=== PATIENT | female | born 1945 | race Hispanic/Latino ===

== ENCOUNTER 2017-03-25 16:39 | Inpatient (IN) | payer MEDICARE, MEDICAID ==
[2017-03-25 16:43] VITALS: BMI 34.7
[2017-03-25] MEDS ORDERED: HYDROmorphone 0.5 mg/0.5 ml ISec IVP STA ×2 (17:06→18:14)
--- NOTE | 2017-03-25 17:11 | ED PDOC ---
Arrival/HPI - General Chief Complaint: Lower Extremity Problem/Injury Time Seen by Provider: 03/25/17 17:03 Historian: Patient - History of Present Illness Narrative History of Present Illness (Text): 03/25/17 17:08 72yr old female presents today with worsening right 4th toe pain. pt was seen by speech and language specialist 4 days ago and had right 4th toe nail removed. pt was placed on ceftin. pt states pain has worsened. pt c/o increased redness, swelling and severe pain. no fever/chills. requesting dilaudid for pain control. pt states she is supposed to having surgery for right hip on apr 17. Time/Duration: Other (4 days) Symptom Onset: Gradual Symptom Course: Worsening Quality: Aching, Throbbing Severity Level: 5 Past Medical History - Provider Review Nursing Documentation Reviewed: Yes - Travel History Have you recently traveled outside [place] w/in the past 3 mons?: Yes - Past History Past History: Non-Contributing - Infectious Disease Hx of Infectious Diseases: None - Tetanus Immunization Tetanus Immunization: Up to Date - Reproductive Menopause: Yes - Cardiac Hx Cardiac Disorders: Yes Hx Hypertension: Yes - Pulmonary Hx Respiratory Disorders: No - Neurological HX Cerebrovascular Accident: Yes - HEENT Hx HEENT Disorder: Yes Hx Glaucoma: Yes - Renal Hx Renal Disorder: No - Endocrine/Metabolic Hx Endocrine Disorders: No - Hematological/Oncological Hx Blood Disorders: Yes Hx Anemia: Yes - Integumentary Hx Dermatological Disorder: No - Musculoskeletal/Rheumatological Hx Arthritis: Yes - Gastrointestinal Hx Gastrointestinal Disorders: Yes Hx Diverticulitis: Yes Hx Gall Bladder Disease: Yes Other/Comment: hiatal hernia - Genitourinary/Gynecological Hx Genitourinary Disorders: No - Psychiatric Hx Psychophysiologic Disorder: Yes Hx Anxiety: Yes Hx Depression: Yes Hx Substance Use: No - Past Surgical History Past Surgical History: Non-Contributing - Surgical History Hx Appendectomy: Yes Hx Cholecystectomy: Yes Hx Hysterectomy: Yes - Anesthesia Hx Anesthesia Reactions: No Hx Malignant Hyperthermia: No - Suicidal Assessment Feels Threatened In Home Enviroment: No Family/Social History - Physician Review Nursing Documentation Reviewed: Yes Family/Social History: Unknown Family HX Smoking Status: Never Smoked Hx Alcohol Use: No Hx Substance Use: No Hx Substance Use Treatment: No Allergies/Home Meds Allergies/Adverse Reactions: Allergies atorvastatin calcium [From Lipitor] Allergy (Verified 03/25/17 16:44) FATIGUE clopidogrel bisulfate [From Plavix] Allergy (Verified 03/25/17 16:44) SHORTNESS OF BREATH nalbuphine HCl [From Nubain] Allergy (Verified 03/25/17 16:44) VOMITING Home Medications: Home Meds Medication Instructions Recorded Confirmed Enalapril Maleate 10 mg PO BID 04/19/15 03/25/17 Omeprazole [Prilosec] 20 mg PO BID 04/19/15 03/25/17 Sertraline [Zoloft] 100 mg PO DAILY 02/27/16 03/25/17 Cefuroxime Axetil [Cefuroxime] 500 mg PO Q12 03/25/17 03/25/17 Mupirocin 2% Ointment [Bactroban 1 appl TP BID 03/25/17 03/25/17 Ointment] Timolol 0.5% Ophth [Timoptic 0.5% 1 drop OP DAILY 03/25/17 03/25/17 Ophth Soln] Review of Systems - Review of Systems Constitutional: absent: Fatigue, Fevers Respiratory: absent: SOB, Cough Cardiovascular: absent: Chest Pain, Palpitations Gastrointestinal: absent: Abdominal Pain, Nausea, Vomiting Musculoskeletal: Arthralgias Skin: Rash, Cellulitis Neurological: absent: Headache, Dizziness Physical Exam Vital Signs Reviewed: Yes Vital Signs Temp Pulse Resp BP Pulse Ox 03/25/17 16:53 97.6 F 78 18 212/79 H 95 Temperature: Afebrile Blood Pressure: Hypertensive Pulse: Regular Respiratory Rate: Normal Appearance: Positive for: Well-Appearing, Non-Toxic, Comfortable Pain Distress: None Mental Status: Positive for: Alert and Oriented X 3 - Systems Exam Head: Present: Atraumatic Neck: Present: Normal Range of Motion Respiratory/Chest: Present: Clear to Auscultation Cardiovascular: Present: Regular Rate and Rhythm Lower Extremity: Present: NORMAL PULSES, Tenderness (right foot; + erythema, edema, tenderness to right 4th toe; + cap refill, distal pulses intact; + minimal edema to dorsal foot with slight erythema extending to dorsal aspect of foot. no calf tenderness. ), Swelling, Erythema, Neurovascularly Intact, Capillary Refill < 2 s. No: CALF TENDERNESS, Normal ROM, Deformity Neurological: Present: GCS=15, Speech Normal Skin: Present: Warm, Dry Psychiatric: Present: Alert, Oriented x 3 Medical Decision Making ED Course and Treatment: 03/25/17 17:53 72yr old female with right 4th toe pain erythema and edema x 4 days. currently on ceftin x 4 days. cbc wnl cmp wnl xray right 4th toe; no fracture 03/25/17 18:32 pt seen and evaluated by dr. núñez. blood cultures pending vancomycin and zosyn ordered IV case discussed with dr. hernández; will admit to med/surg for cellulitis of toe, failure of outpatient abx. impression; cellulitis, toe admit to med/surg - Lab Interpretations Lab Results: 03/25/17 17:15 03/25/17 17:15 Lab Results 03/25/17 17:15: WBC 8.9, RBC 4.70, Hgb 14.2, Hct 42.4, MCV 90.2, MCH 30.2, MCHC 33.5, RDW 13.5, Plt Count 214, MPV 10.4, Gran % 60.7, Lymph % (Auto) 25.1, [place] % (Auto) 8.4 H, Eos % (Auto) 5.5 H, Baso % (Auto) 0.3, Gran # 5.41, Lymph # 2.2 , [place] # 0.8 H, Eos # 0.5, Baso # 0.03 03/25/17 17:15: Sodium 144, Potassium 4.2, Chloride 106, Carbon Dioxide 27, Anion Gap 15, BUN 19, Creatinine 0.7, Est GFR ( Amer) > 60, Est GFR (Non- Af Amer) > 60, Random Glucose 114 H, Calcium 9.6, Total Bilirubin 0.4, AST 70 H , ALT 57 H, Alkaline Phosphatase 142 H, Total Protein 7.0, Albumin 4.1, Globulin 2.9, Albumin/Globulin Ratio 1.4 - RAD Interpretation Radiology Orders: 03/25/17 17:03 FOOT RIGHT 4TH DIGIT (TOE) [RAD] Stat - Medication Orders Current Medication Orders: Vancomycin HCl (Vancomycin 1gm) 1 g in 250 mls @ 167 mls/hr IVPB STAT STA PRN Reason: Protocol Stop: 03/25/17 19:43 Piperacillin Sod/Tazobactam Sod (Zosyn 3.375 In Ns 100ml) 100 mls @ 200 mls/hr IVPB STAT STA PRN Reason: Protocol Stop: 03/25/17 18:43 Discontinued Medications Hydromorphone HCl (Dilaudid) 0.5 mg IVP STAT STA Stop: 03/25/17 17:07 Last Admin: 03/25/17 17:23 Dose: 0.5 mg MAR Pain Assessment Document 03/25/17 17:23 (Rec: 03/25/17 17:24 MD BENITES) Pain Reassessment Is this a pain reassessment? Yes Sleep Is patient sleeping during reassessment? No Presence of Pain Presence of Pain Yes IVP Administration Document 03/25/17 17:23 (Rec: 03/25/17 17:24 MD BENITES) Charges for Administration # of IVP Administrations 1 Hydromorphone HCl (Dilaudid) 0.5 mg IVP STAT STA Stop: 03/25/17 18:15 Disposition/Present on Arrival - Present on Arrival Any Indicators Present on Arrival: No History of DVT/PE: No History of Uncontrolled Diabetes: No Urinary Catheter: No History of Decub. Ulcer: No History Surgical Site Infection Following: None - Disposition Have Diagnosis and Disposition been Completed?: Yes Diagnosis: Cellulitis, toe Disposition: HOSPITALIZED Disposition Time: 18:34 Patient Plan: Admission Condition: FAIR Discharge Instructions (ExitCare): Cellulitis (ED) Forms: [employer] ([place])
[2017-03-25 17:37] LABS: ALB/GLOB RATIO 1.4 (1.1-1.8); ALKALINE PHOSPHATASE 142 U/L (38-126); ALT/SGPT 57 U/L (7-56); AST/SGOT 70 U/L (14-36); BILIRUBIN,TOTAL 0.4 mg/dL (0.2-1.3); BLOOD UREA NITROGEN 19 mg/dL (7-21); CALCIUM 9.6 mg/dL (8.4-10.5); CARBON DIOXIDE 27 mmol/L (21-33); CHLORIDE 106 mmol/L (98-107); GFR AFRICAN-AMERICAN > 60; GLUCOSE,RANDOM 114 mg/dL (70-110); POTASSIUM 4.2 mmol/L (3.6-5.0); SODIUM 144 mmol/L (132-148)
[2017-03-25 17:38] LABS: BASO # 0.03 K/mm3 (0.0-2.0); BASO % 0.3 % (0.0-3.0); EOS # 0.5 (0.0-0.7); EOS % 5.5 % (1.5-5.0); GRAN # 5.41 (1.4-6.5); GRAN % 60.7 % (50.0-68.0); HEMATOCRIT 42.4 % (36.0-48.0); LYMPH # 2.2 (1.2-3.4); LYMPH % 25.1 % (22.0-35.0); MEAN CELL VOLUME 90.2 fl (80.0-105.0); MEAN CORPUSCULAR HEMOGLOBIN 30.2 pg (25.0-35.0); MEAN CORPUSCULAR HGB CONC 33.5 g/dl (31.0-37.0); MEAN PLATELET VOLUME 10.4 fl (7.0-11.0); MONO # 0.8 (0.1-0.6); MONO % 8.4 % (1.0-6.0); RED CELL DISTRIBUTION WIDTH 13.5 % (11.5-14.5); WHITE BLOOD COUNT 8.9 10^3/ul (4.5-11.0)
[2017-03-25] MEDS ORDERED: Piperacillin/Tazobact 3.375 gm 100 ML IVPB STA (18:14)
[2017-03-25] MEDS ORDERED: Vancomycin 1gm in NS 250ml 1 G/250 ML BAG IVPB STA (18:14)
[2017-03-25] MEDS: Morphine 2 mg/ml ISec IVP PRN (22:02)
--- NOTE | 2017-03-26 00:15 | CP.PCM.PN ---
Subjective - Date & Time of Evaluation Date of Evaluation: 03/26/17 Time of Evaluation: 00:13 - Subjective Subjective: S:Requests a sleeping pill. Seen at bedside. States that she takes ambien sometimes for sleep. Has no other complaints now.l O:VSS. Last Vital Signs 3 Temp 98 F 03/26/17 00:00 Pulse 62 03/26/17 00:00 Resp 20 03/26/17 00:00 BP 155/80 H 03/26/17 00:00 Pulse Ox 94 L 03/26/17 00:00 Awake, alert, not in distress. LUNGS: Normal breathing pattern. A:Adjustment insomnia. P:Ambien 5 mg PO x 1. Objective - Vital Signs/Intake and Output Vital Signs (last 24 hours): Temp Pulse Resp BP Pulse Ox 98 F 62 20 155/80 H 94 L 03/26/17 00:00 03/26/17 00:00 03/26/17 00:00 03/26/17 00:00 03/26/17 00:00 Intake and Output: 03/25/17 03/26/17 18:59 06:59 Intake Total 240 Balance 240 - Medications Medications: Current Medications Ibuprofen (Motrin Tab) 800 mg PO BID [facility] Lisinopril (Zestril) 10 mg PO BID [facility] Last Admin: 03/25/17 22:00 Dose: 10 mg Morphine Sulfate (Morphine) 2 mg IVP Q4H PRN PRN Reason: Pain, severe (8-10) Last Admin: 03/25/17 22:02 Dose: 2 mg Pantoprazole Sodium (Protonix Ec Tab) 20 mg PO 0600,1600 [facility] Sertraline HCl (Zoloft) 100 mg PO DAILY [facility] Timolol Maleate (Timoptic 0.5% [facility]) 1 drop OU BID [facility] Last Admin: 03/25/17 22:00 Dose: 1 drop
[2017-03-26] MEDS: Pantoprazole 20 mg EC Tab PO SCH ×2 (05:09→16:32)
[2017-03-26] MEDS: Morphine 2 mg/ml ISec IVP PRN ×2 (05:09→11:11)
[2017-03-26] MEDS: Vancomycin 1gm in NS 250ml 1 GM/250 ML BAG IVPB SCH ×2 (06:55→17:59)
--- NOTE | 2017-03-26 08:55 | CP.PCM.HP ---
<Ava Lyn - Last Filed: 03/26/17 11:10> History of Present Illness - History of Present Illness History of Present Illness: PGY-2 H&P for Dr. Walker 72 yo female with PMH of HTN, CVA, glaucoma, anemia, arthritis presents to hospital with worsening right 4th toe pain. Patient states that she noticed the pain started 4 days ago. She noticed that he toes and foot were becoming increasingly red so she decided to go to the improvement manager. There she had the right 4th toe nail removed and was started on outpatient antibiotic, ceftin. Patient states that over the next few days she was walking around alot and the continues to pain has worsen. On the day on admission patient noticed increased redness and darkening of her toes, as well as swelling and severe pain. She denies fever/chills, chest pain, sob, abd pain, n/v. Patient also reporst severe back pain with numbness down her right leg secondary to a hip surgery in august. Patients that she is to have another surgery for her right hip on apr 17. Patient states this morning her foot is better, the redness has improved. PMH: HTN, CVA, glaucoma, anemia, arthritis PSH: right hip surgery, appendectomy, cholecystectomy, hysterectomy Social hx: quit smoking 25 yo, before 3ppd, denies Etoch use, illicit drug use allergy: lipitor, plavix, nalbuphine meds: timolol, motrin, enalapril, bactroban ointment, cefuroxime, prilosce, percocet 5/325, zoloft Present on Admission - Present on Admission Any Indicators Present on Admission: No Review of Systems - Constitutional Constitutional: absent: Chills, Fatigue, Headache, Lethargy - EENT Eyes: absent: Blurred Vision, Change in Vision Nose/Mouth/Throat: absent: Nasal Congestion, Nasal Discharge, Sore Throat - Cardiovascular Cardiovascular: absent: Chest Pain, Diaphoresis, Irregular Heart Rhythm, Palpitations - Respiratory Respiratory: absent: Cough, Dyspnea, Hemoptysis - Gastrointestinal Gastrointestinal: absent: Abdominal Pain, Constipation, Diarrhea, Nausea, Vomiting - Genitourinary Genitourinary: absent: Difficulty Urinating, Dysuria, Hematuria - Musculoskeletal Musculoskeletal: Arthralgias, Back Pain, Numbness, Tingling - Integumentary Integumentary: absent: Pruritus, Rash, Skin Ulcer, Sores - Hematologic/Lymphatic Hematologic: absent: Easy Bleeding, Easy Bruising Past Patient History - Infectious Disease Hx of Infectious Diseases: None - Tetanus Immunizations Tetanus Immunization: Up to Date - Past Social History Smoking Status: Never Smoked - CARDIAC Hx Cardiac Disorders: Yes Hx Hypertension: Yes - PULMONARY Hx Respiratory Disorders: No - NEUROLOGICAL HX Cerebrovascular Accident: Yes - HEENT Hx HEENT Problems: Yes Hx Glaucoma: Yes - RENAL Hx Chronic Kidney Disease: No - ENDOCRINE/METABOLIC Hx Endocrine Disorders: No - HEMATOLOGICAL/ONCOLOGICAL Hx Blood Disorders: Yes Hx Anemia: Yes - INTEGUMENTARY Hx Dermatological Problems: No - MUSCULOSKELETAL/RHEUMATOLOGICAL Hx Arthritis: Yes - GASTROINTESTINAL Hx Gastrointestinal Disorders: Yes Hx Diverticulitis: Yes Hx Gall Bladder Disease: Yes Other/Comment: hiatal hernia - GENITOURINARY/GYNECOLOGICAL Hx Genitourinary Disorders: No - PSYCHIATRIC Hx Psychophysiologic Disorder: Yes Hx Anxiety: Yes Hx Depression: Yes Hx Substance Use: No - SURGICAL HISTORY Hx Appendectomy: Yes Hx Cholecystectomy: Yes Hx Hysterectomy: Yes - ANESTHESIA Hx Anesthesia Reactions: No Hx Malignant Hyperthermia: No Meds Allergies/Adverse Reactions: Allergies Allergy/AdvReac Type Severity Reaction Status Date / Time atorvastatin calcium Allergy FATIGUE Verified 03/25/17 16:44 [From Lipitor] clopidogrel bisulfate Allergy SHORTNESS Verified 03/25/17 16:44 [From Plavix] OF BREATH nalbuphine HCl [From Nubain] Allergy VOMITING Verified 03/25/17 16:44 Physical Exam - Constitutional Appears: Well, No Acute Distress - Head Exam Head Exam: ATRAUMATIC, NORMAL INSPECTION, NORMOCEPHALIC - Eye Exam Eye Exam: EOMI, Normal appearance - ENT Exam ENT Exam: Mucous Membranes Moist - Respiratory Exam Respiratory Exam: Clear to Auscultation Bilateral, NORMAL BREATHING PATTERN. absent: Decreased Breath Sounds, Rales, Rhonchi, Wheezes, Respiratory Distress, Stridor - Cardiovascular Exam Cardiovascular Exam: REGULAR RHYTHM, +S1, +S2. absent: Tachycardia, Diastolic murmur, Systolic Murmur - GI/Abdominal Exam GI & Abdominal Exam: Normal Bowel Sounds, Soft. absent: Distended, Firm, Guarding, Tenderness - Extremities Exam Additional comments: right 4th toes, erythema, does not extend past toe, tenderness to palpation - Neurological Exam Neurological exam: Alert, Oriented x3 - Skin Skin Exam: Dry, Intact, Normal Color, Warm Results - Vital Signs Recent Vital Signs: Last Vital Signs Temp 97.6 F 03/26/17 07:30 Pulse 67 03/26/17 07:30 Resp 18 03/26/17 07:30 BP 166/81 H 03/26/17 07:30 Pulse Ox 93 L 03/26/17 07:30 - Labs Result Diagrams: 03/25/17 17:15 03/25/17 17:15 Assessment & Plan - Assessment and Plan (Free Text) Assessment: 72 yo female with PMH of HTN, CVA, glaucoma, anemia, arthritis presents to hospital with worsening right 4th toe pain most likely 2/2 cellulitis. Plan: 1. cellulitis of right 4th toe - received zosyn and vanco in ED - Xray of foot does not show any fractures - cont ceftriaxone - cont pain management 2. HTN - cont lisinopril - cont to monitor 3. h/o glaucoma - cont timolol <Adolfo Walker S - Last Filed: 03/26/17 17:06> Results - Vital Signs Recent Vital Signs: Last Vital Signs Temp 98.6 F 03/26/17 16:29 Pulse 65 03/26/17 16:29 Resp 20 03/26/17 16:29 BP 188/82 H 03/26/17 16:29 Pulse Ox 93 L 03/26/17 16:29 - Labs Result Diagrams: 03/25/17 17:15 03/25/17 17:15 Labs: Laboratory Results - last 24 hr 03/26/17 03/26/17 08:20 08:20 ESR 14 C-React Prot High Sens 2.85 Assessment & Plan - Assessment and Plan (Free Text) Plan: Pt seen and examined. Agree with above not and plan of resident. Labs and meds reviewed. Spoke to Dr Rios. On IV Abx. Old records reviewed.
--- NOTE | 2017-03-26 09:16 | RAD ---
PROCEDURE: Radiographs of the right foot (toe). HISTORY: right 4th toe pain/swelling/redness COMPARISON: None TECHNIQUE: AP, oblique and lateral radiographs of the right 4th toe were obtained. FINDINGS: There is no acute displaced fracture or bone destruction. Bone alignment is normal. There is diffuse bone demineralization. The joint spaces are preserved. There is localized soft tissue swelling in the tip of the 4th toe. IMPRESSION: No acute fracture or bone destruction. Soft tissue swelling in the 4th toe which could represent cellulitis in the appropriate clinical setting.
[2017-03-26] MEDS ORDERED: cefTRIAXone 1 gm 1 GM/100 ML BAG IVPB SCH (10:00)
--- NOTE | 2017-03-26 15:42 | CP.PCM.CON ---
History of Present Illness - History of Present Illness History of Present Illness: 72 year old female with PMH of HTN, CVA, history of glaucoma, chronic anemia, arthritis, S/P hysterectomy, S/P appendectomy, S/P cholecystectomy, S/P right hip surgery came in to [facility] because of worsening pain and swelling of the right foot 4th toe. She had an ingrown toenail there which was removed last week. She was given antibiotic ointment and PO Cefuroxime to take. Over the next few days, the toe progressively got more swollen and painful. She denies animal contacts, no fever or chills, no soaking of feet in water. She also denies headache or dizziness, no chest pain, no SOB, no abdominal pain, no diarrhea, no dysuria. Infectious Diseases consult is requested to further evaluate and manage. Past Patient History - Infectious Disease Hx of Infectious Diseases: None - Tetanus Immunizations Tetanus Immunization: Up to Date - Past Social History Smoking Status: Never Smoked - CARDIAC Hx Cardiac Disorders: Yes Hx Hypertension: Yes - PULMONARY Hx Respiratory Disorders: No - NEUROLOGICAL HX Cerebrovascular Accident: Yes - HEENT Hx HEENT Problems: Yes Hx Glaucoma: Yes - RENAL Hx Chronic Kidney Disease: No - ENDOCRINE/METABOLIC Hx Endocrine Disorders: No - HEMATOLOGICAL/ONCOLOGICAL Hx Blood Disorders: Yes Hx Anemia: Yes - INTEGUMENTARY Hx Dermatological Problems: No - MUSCULOSKELETAL/RHEUMATOLOGICAL Hx Arthritis: Yes - GASTROINTESTINAL Hx Gastrointestinal Disorders: Yes Hx Diverticulitis: Yes Hx Gall Bladder Disease: Yes Other/Comment: hiatal hernia - GENITOURINARY/GYNECOLOGICAL Hx Genitourinary Disorders: No - PSYCHIATRIC Hx Psychophysiologic Disorder: Yes Hx Anxiety: Yes Hx Depression: Yes Hx Substance Use: No - SURGICAL HISTORY Hx Appendectomy: Yes Hx Cholecystectomy: Yes Hx Hysterectomy: Yes - ANESTHESIA Hx Anesthesia Reactions: No Hx Malignant Hyperthermia: No Meds Allergies/Adverse Reactions: Allergies Allergy/AdvReac Type Severity Reaction Status Date / Time atorvastatin calcium Allergy FATIGUE Verified 03/25/17 16:44 [From Lipitor] clopidogrel bisulfate Allergy SHORTNESS Verified 03/25/17 16:44 [From Plavix] OF BREATH nalbuphine HCl [From Nubain] Allergy VOMITING Verified 03/25/17 16:44 - Medications Medications: Current Medications Ibuprofen (Motrin Tab) 800 mg PO BID [facility] Lisinopril (Zestril) 10 mg PO BID [facility] Last Admin: 03/25/17 22:00 Dose: 10 mg Morphine Sulfate (Morphine) 2 mg IVP Q4H PRN PRN Reason: Pain, severe (8-10) Last Admin: 03/26/17 05:09 Dose: 2 mg Pantoprazole Sodium (Protonix Ec Tab) 20 mg PO 0600,1600 [facility] Last Admin: 03/26/17 05:09 Dose: 20 mg Sertraline HCl (Zoloft) 100 mg PO DAILY [facility] Timolol Maleate (Timoptic 0.5% [facility]) 1 drop OU BID [facility] Last Admin: 03/25/17 22:00 Dose: 1 drop Results - Vital Signs Recent Vital Signs: Last Vital Signs Temp 98 F 03/26/17 00:00 Pulse 62 03/26/17 00:00 Resp 20 03/26/17 00:00 BP 155/80 H 03/26/17 00:00 Pulse Ox 94 L 03/26/17 00:00 - Labs Result Diagrams: 03/25/17 17:15 03/25/17 17:15 Assessment & Plan - Assessment and Plan (Free Text) Plan: Assessment right 4th toe skin and skin structure infection related to ingrown toenail HTN CVA history of glaucoma chronic anemia arthritis S/P hysterectomy S/P appendectomy S/P cholecystectomy S/P right hip surgery Plan Started Vancomycin and Rocephin pending wound cx, blood cx; reviewed xray of the foot which shows cellulitis, no bone involvement follow up Podiatry evaluation and recommendations will monitor clinically
[2017-03-26] MEDS: HYDROmorphone 1 mg/ml ISec IVP PRN ×2 (15:56→22:35)
[2017-03-26 16:32] VITALS: RESP 20
--- NOTE | 2017-03-26 18:17 | CON ---
DATE: HISTORY OF PRESENT ILLNESS: This is a 72-year-old female seen at bedside for consultation, evaluation, and management of cellulitis of her right fourth toe. The patient states that she had that toe and she went to the sterilizer operator to have it removed and subsequently developed an infection. She has had outpatient antibiotics and was admitted for cellulitis. PAST MEDICAL HISTORY: The patient's medical history significant for glaucoma, anemia, essential hypertension, CVA, and osteoarthritis. PAST SURGICAL HISTORY: Includes cholecystectomy, hysterectomy, right hip surgery, and appendectomy. SOCIAL HISTORY: The patient was a former smoker, has not smoked in many years. Denies alcohol abuse. Denies illicit drug use. ALLERGIES: THE PATIENT IS ALLERGIC TO PLAVIX, LIPITOR, AND NALBUPHINE. MEDICATIONS: All medications are noted in the MAR. PHYSICAL EXAMINATION VITAL SIGNS: Reveal temperature of 97.6, pulse rate of 67, blood pressure of 166/81, respiratory rate of 18. LABORATORY FINDINGS: Reveal white count of 8.9, hemoglobin of 14.2, hematocrit of 42.4, platelet count of 214. ESR is within normal limits at 14. Foot x-rays reveal no radiographic evidence to suggest cortical destruction or osteomyelitis. There is noted to be soft tissue swelling in the fourth toe consistent with cellulitis. OBJECTIVE: EXTREMITIES: Palpable pedal pulses noted bilaterally. Absent pedal hair growth noted bilaterally, +1 nonpitting lower extremity edema noted bilaterally. Right fourth toe presents with edema and erythema. There is an absence of the great toe, which remains granular at the nailbed. There is no purulence to suggest underlying abscess formation. There is no drainage. ASSESSMENT: Resolving cellulitis of the right fourth toe. PLAN The patient 's wound will be cleansed with normal sterile saline. We will apply Bactroban and a dry sterile dressing daily. The patient will be seen and followed until discharge. Vicente Rios DPM
[2017-03-27] MEDS: Vancomycin 1gm in NS 250ml 1 GM/250 ML BAG IVPB SCH (05:46)
[2017-03-27] MEDS: Pantoprazole 20 mg EC Tab PO SCH (05:46)
--- NOTE | 2017-03-27 07:00 | CP.PCM.PN ---
Subjective - Date & Time of Evaluation Date of Evaluation: 03/27/17 Time of Evaluation: 00:10 - Subjective Subjective: called by nurse pt ,s bp is 210/90 , pt is c/o hedache. Objective - Vital Signs/Intake and Output Vital Signs (last 24 hours): Temp Pulse Resp BP Pulse Ox 98.6 F 70 20 140/74 93 L 03/26/17 16:29 03/27/17 00:48 03/26/17 16:29 03/27/17 01:50 03/26/17 16:29 Intake and Output: 03/26/17 03/27/17 18:59 06:59 Intake Total 480 780 Balance 480 780 - Medications Medications: Current Medications Hydromorphone HCl (Dilaudid) 1 mg IVP Q4H PRN PRN Reason: Pain, severe (8-10) Last Admin: 03/26/17 22:35 Dose: 1 mg Vancomycin HCl (Vancomycin 1gm) 1 gm in 250 mls @ 167 mls/hr IVPB Q12H [facility] PRN Reason: Protocol Last Admin: 03/27/17 05:46 Dose: 167 mls/hr Ceftriaxone Sodium (Rocephin 1 Gram Ivpb) 1 gm in 100 mls @ 100 mls/hr IVPB DAILY [facility] PRN Reason: Protocol Last Admin: 03/26/17 10:25 Dose: 100 mls/hr Ibuprofen (Motrin Tab) 800 mg PO BID [facility] Last Admin: 03/26/17 17:56 Dose: 800 mg Lisinopril (Zestril) 10 mg PO BID [facility] Last Admin: 03/26/17 17:56 Dose: 10 mg Pantoprazole Sodium (Protonix Ec Tab) 20 mg PO 0600,1600 [facility] Last Admin: 03/27/17 05:46 Dose: 20 mg Sertraline HCl (Zoloft) 100 mg PO DAILY [facility] Last Admin: 03/26/17 10:21 Dose: 100 mg Timolol Maleate (Timoptic 0.5% [facility]) 1 drop OU BID [facility] Last Admin: 03/26/17 17:56 Dose: 1 drop Zolpidem Tartrate (Ambien) 5 mg PO HS PRN; Protocol PRN Reason: Insomnia - Constitutional Appears: No Acute Distress - Head Exam Head Exam: NORMOCEPHALIC - Eye Exam Eye Exam: Normal appearance - ENT Exam ENT Exam: Mucous Membranes Moist - Neck Exam Neck Exam: Normal Inspection - Respiratory Exam Respiratory Exam: NORMAL BREATHING PATTERN - Cardiovascular Exam Cardiovascular Exam: RRR, +S1, +S2 - Rectal Exam Rectal Exam: Deferred - Extremities Exam Extremities Exam: Normal Inspection - Neurological Exam Neurological Exam: Awake Assessment and Plan - Assessment and Plan (Free Text) Assessment: hypertensinve urgency . hx of htn. hx of back pain. Plan: pt was given 0.1mg of clonidine bp improved to 140/78.
[2017-03-27 07:53] VITALS: PULSE 62; TEMP 97.7; O2SAT 94
[2017-03-27] MEDS: HYDROmorphone 1 mg/ml ISec IVP PRN (07:59)
--- NOTE | 2017-03-27 08:09 | CP.PCM.PN ---
<Ava Lyn - Last Filed: 03/27/17 12:44> Subjective - Date & Time of Evaluation Date of Evaluation: 03/27/17 Time of Evaluation: 08:07 - Subjective Subjective: Pgy-[address] Walker Patient seen and examined at bedside. No acute distress. Patient states that her toes continues to be tender but has improved. She denies chest pain, fever, chills, n/v/d/c. She is tolerating diet. Objective - Vital Signs/Intake and Output Vital Signs (last 24 hours): Temp Pulse Resp BP Pulse Ox 97.7 F 62 20 119/49 L 94 L 03/27/17 07:30 03/27/17 07:30 03/27/17 07:30 03/27/17 07:30 03/27/17 07:30 Intake and Output: 03/27/17 03/27/17 06:59 18:59 Intake Total 780 Balance 780 - Medications Medications: Current Medications Hydromorphone HCl (Dilaudid) 1 mg IVP Q4H PRN PRN Reason: Pain, severe (8-10) Last Admin: 03/27/17 07:59 Dose: 1 mg Vancomycin HCl (Vancomycin 1gm) 1 gm in 250 mls @ 167 mls/hr IVPB Q12H [facility] PRN Reason: Protocol Last Admin: 03/27/17 05:46 Dose: 167 mls/hr Ceftriaxone Sodium (Rocephin 1 Gram Ivpb) 1 gm in 100 mls @ 100 mls/hr IVPB DAILY [facility] PRN Reason: Protocol Last Admin: 03/26/17 10:25 Dose: 100 mls/hr Ibuprofen (Motrin Tab) 800 mg PO BID [facility] Last Admin: 03/26/17 17:56 Dose: 800 mg Lisinopril (Zestril) 10 mg PO BID [facility] Last Admin: 03/26/17 17:56 Dose: 10 mg Pantoprazole Sodium (Protonix Ec Tab) 20 mg PO 0600,1600 [facility] Last Admin: 03/27/17 05:46 Dose: 20 mg Sertraline HCl (Zoloft) 100 mg PO DAILY [facility] Last Admin: 03/26/17 10:21 Dose: 100 mg Timolol Maleate (Timoptic 0.5% Oph Soln) 1 drop OU BID [facility] Last Admin: 03/26/17 17:56 Dose: 1 drop Zolpidem Tartrate (Ambien) 5 mg PO HS PRN; Protocol PRN Reason: Insomnia - Constitutional Appears: Well, No Acute Distress - Head Exam Head Exam: ATRAUMATIC, NORMAL INSPECTION, NORMOCEPHALIC - Eye Exam Eye Exam: EOMI, Normal appearance - ENT Exam ENT Exam: Mucous Membranes Moist - Respiratory Exam Respiratory Exam: Clear to Ausculation Bilateral, NORMAL BREATHING PATTERN. absent: Decreased Breath Sounds, Rales, Rhonchi, Wheezes, Respiratory Distress, Stridor - Cardiovascular Exam Cardiovascular Exam: REGULAR RHYTHM, +S1, +S2. absent: Tachycardia, Murmur - GI/Abdominal Exam GI & Abdominal Exam: Soft, Normal Bowel Sounds. absent: Distended, Firm, Tenderness - Neurological Exam Neurological Exam: Alert, Awake, Oriented x3 - Skin Skin Exam: Dry, Intact, Normal Color, Warm Assessment and Plan - Assessment and Plan (Free Text) Assessment: 72 yo female with PMH of HTN, CVA, glaucoma, anemia, arthritis presents to hospital with worsening right 4th toe pain most likely 2/2 cellulitis. Plan: 1. cellulitis of right 4th toe - Xray of foot does not show any fractures - blood cultures negative after 24 hours - cont ceftriaxone and vanco - cont pain management with dilaudid, motrin - LE ultrasound pending - podiatry following - ID following 2. HTN - patient had episode of HTN and was given clonidine 0.1 once - currently BP is better controlled, will cont to monitor and increase lisinopril if needed - cont lisinopril 10mg BID 3. h/o glaucoma - cont timolol 4. anxiety and depression - cont home meds Ambien and zoloft <Adolfo Walker S - Last Filed: 03/28/17 07:44> Objective - Vital Signs/Intake and Output Vital Signs (last 24 hours): Temp Pulse Resp BP Pulse Ox 97.7 F 62 20 120/50 L 94 L 03/27/17 07:30 03/27/17 09:35 03/27/17 07:30 03/27/17 09:35 03/27/17 07:30 Assessment and Plan - Assessment and Plan (Free Text) Plan: Pt seen and examined. Note of medical radiation therapist reviewed and I agree with it. Labs and meds reviewed. Will speak to ID about PO Abx. Plan on D/C home. Cellulitis is improving.
[2017-03-27 09:37] VITALS: BP 120/50
--- NOTE | 2017-03-27 10:45 | CP.PCM.PN ---
<Freedom Machado - Last Filed: 03/27/17 10:41> Subjective - Date & Time of Evaluation Date of Evaluation: 03/27/17 Time of Evaluation: 10:41 - Subjective Subjective: 72 y.o female seen at bedside for right 4th digit cellulitis. She is seen resting comfortably at bedside, AAOx3, and in NAD. Patient states that she is doing much better. The redness has gone down. She still reports pain to the right 4th digit but has improved. She rates the pain 6/10 and describes the pain as a throbbing pain that stays localized to the right 4th digit. She denies n/v/sob/cp/chills or f. Objective - Vital Signs/Intake and Output Vital Signs (last 24 hours): Temp Pulse Resp BP Pulse Ox 97.7 F 62 20 120/50 L 94 L 03/27/17 07:30 03/27/17 09:35 03/27/17 07:30 03/27/17 09:35 03/27/17 07:30 Intake and Output: 03/27/17 03/27/17 06:59 18:59 Intake Total 780 Balance 780 - Medications Medications: Current Medications Hydromorphone HCl (Dilaudid) 1 mg IVP Q4H PRN PRN Reason: Pain, severe (8-10) Last Admin: 03/27/17 07:59 Dose: 1 mg Vancomycin HCl (Vancomycin 1gm) 1 gm in 250 mls @ 167 mls/hr IVPB Q12H [facility] PRN Reason: Protocol Last Admin: 03/27/17 05:46 Dose: 167 mls/hr Ceftriaxone Sodium (Rocephin 1 Gram Ivpb) 1 gm in 100 mls @ 100 mls/hr IVPB DAILY [facility] PRN Reason: Protocol Last Admin: 03/26/17 10:25 Dose: 100 mls/hr Ibuprofen (Motrin Tab) 800 mg PO BID [facility] Last Admin: 03/27/17 09:35 Dose: 800 mg Lisinopril (Zestril) 10 mg PO BID [facility] Last Admin: 03/27/17 09:35 Dose: 10 mg Pantoprazole Sodium (Protonix Ec Tab) 20 mg PO 0600,1600 [facility] Last Admin: 03/27/17 05:46 Dose: 20 mg Sertraline HCl (Zoloft) 100 mg PO DAILY [facility] Last Admin: 03/27/17 09:35 Dose: 100 mg Timolol Maleate (Timoptic 0.5% Ophth Soln) 1 drop OU BID [facility] Last Admin: 03/27/17 09:39 Dose: 1 drop Zolpidem Tartrate (Ambien) 5 mg PO HS PRN; Protocol PRN Reason: Insomnia - Constitutional Appears: Well, Non-toxic, No Acute Distress - Extremities Exam Additional comments: Vasc: DP and PT pulses palpable bilaterally. No digital hairs noted bilaterally , +1 nonpitting edema bilaterally; localized edema noted to the right 4th toe Ortho: moderate pain with palpation to the right 4th toe Neuro: gross sensation is intact bilaterally Derm: Absent of nail plate to the right 4th digit. 100% granular nail bed with no fibrotic tissue noted. No purulence, no drainage, no odor, no abscess; erythema noted to the right 4th digit; erythema improving. - Neurological Exam Neurological Exam: Alert, Awake, Oriented x3 - Psychiatric Exam Psychiatric exam: Normal Affect, Normal Mood Assessment and Plan - Assessment and Plan (Free Text) Assessment: 72 y.o female with resolving right 4th digit cellulitis secondary to ingrown nail. Plan: Patient was examined and evaluated Charts, labs, vitals reviewed (afebrile, absent leukocytosis WBC=8.9) Discussed plan in detail with attending Dr. Rios Patient's 4th digit cleansed with saline, and dressed with bactroban, dsd, and kerlix X-ray shows no OM Will continue local wound care while in house Patient may WBAT in right surgical shoe Patient is stable per podiatry Will continue to follow while inhouse <Vicente Rios - Last Filed: 03/27/17 13:45> Objective - Vital Signs/Intake and Output Vital Signs (last 24 hours): Temp Pulse Resp BP Pulse Ox 97.7 F 62 20 120/50 L 94 L 03/27/17 07:30 03/27/17 09:35 03/27/17 07:30 03/27/17 09:35 03/27/17 07:30 Intake and Output: 03/27/17 03/27/17 06:59 18:59 Intake Total 780 Balance 780 - Medications Medications: Current Medications Amoxicillin/Clavulanate Potassium (Augmentin 875 Mg-125 Mg Tab) 1 tab PO Q12 [facility] PRN Reason: Protocol Stop: 04/03/17 12:51 Doxycycline Hyclate (Doryx) 100 mg PO Q12 [facility] PRN Reason: Protocol Stop: 04/03/17 12:52 Hydromorphone HCl (Dilaudid) 1 mg IVP Q4H PRN PRN Reason: Pain, severe (8-10) Last Admin: 03/27/17 07:59 Dose: 1 mg Ibuprofen (Motrin Tab) 800 mg PO BID PRN PRN Reason: Pain, moderate (4-7) Lisinopril (Zestril) 10 mg PO BID [facility] Last Admin: 03/27/17 09:35 Dose: 10 mg Pantoprazole Sodium (Protonix Ec Tab) 20 mg PO 0600,1600 [facility] Last Admin: 03/27/17 05:46 Dose: 20 mg Sertraline HCl (Zoloft) 100 mg PO DAILY [facility] Last Admin: 03/27/17 09:35 Dose: 100 mg Timolol Maleate (Timoptic 0.5% [facility] Sol) 1 drop OU BID [facility] Last Admin: 03/27/17 09:39 Dose: 1 drop Zolpidem Tartrate (Ambien) 5 mg PO HS PRN; Protocol PRN Reason: Insomnia Attending/Attestation - Attestation I have personally seen and examined this patient.: Yes I have fully participated in the care of the patient.: Yes I have reviewed all pertinent clinical information, including history, physical exam and plan: Yes
[2017-03-27] MEDS ORDERED: Amoxicillin-Clav 875-125 mg Tab PO SCH (12:50)
[2017-03-27] MEDS ORDERED: Influenza Vaccine 60 mcg/0.5 mL SYR (4YR UP) IM ONE (14:01)
--- NOTE | 2017-03-27 15:28 | PN ---
DATE: 03/27/2017 SUBJECTIVE: The patient is in bed, in no acute distress, and nontoxic. PHYSICAL EXAMINATION VITAL SIGNS: Temperature is 98, blood pressure is 110/70, and respiratory rate of 16. HEENT: Unremarkable. NECK: Supple. LUNGS: Decreased breath sounds. HEART: Normal S1 and S2. ABDOMEN: Soft and nontender. LABORATORY EXAMINATION: Reveals a white count of 8.9. BUN of 19 and creatinine of 0.7. LFTs are noted. Microbiology reveals blood cultures are no growth. ASSESSMENT AND PLAN: This is a 72-year-old female with history of hypertension, cerebrovascular accident, glaucoma, anemia, arthritis, status post hysterectomy, appendectomy, cholecystectomy, hip surgery, who was admitted with right foot fourth toe pain and found to have right fourth toe skin and skin soft tissue infection related to an ingrown toenail, on vancomycin and Rocephin. X-ray of the foot is consistent with cellulitis, no bone destruction. Sed rate of 14. C-reactive protein is 2.85. Microbiology reveals the blood cultures are negative and review of podiatry note is appreciated. Podiatry is written they do not feel there is any osteomyelitis or cerebrovascular disease and has ingrown nail with cellulitis and he switch to p.o. antibiotics with p.o. doxycycline and p.o. Augmentin x5 to 7 days and close follow up with PMD and Podiatry. We will discontinue the vancomycin and ceftriaxone. Sidney Downing MD
--- NOTE | 2017-03-27 19:44 | US ---
PROCEDURE: Lower extremity HILDA exam HISTORY: Peripheral vascular disease with pain and toe ulceration. Previous smoker. PHYSICIAN(S): Jarad Davenport MD. FINDINGS: The resting HILDA's are normal: right, 1.11and left, 1.23. The brachial systolic pressures are symmetric. The high thigh pressures and waveforms are relatively normal. The calf PVR waveforms augment normally. No significant gradients are noted across the thighs. The ankle and metatarsal waveforms are relatively normal and symmetric. No significant pressure gradients are noted across the lower legs. IMPRESSION: 1. Relatively normal HILDA and PVR examination at rest.
== END 2017-03-27 14:46 | disposition home or self-care (01) | DRG 603 ==
LOC: ED 16:39 → ERH 19:53 → 5RSO 20:54
PROVIDERS: ADMIT Internal Medicine Nephrology; ATTEND Internal Medicine Nephrology
DX: L03.031 Cellulitis of right toe (principal); L60.0 Ingrowing nail; I16.0 Hypertensive urgency; D64.9 Anemia, unspecified; F32.9 Major depressive disorder, single episode, unspecified; F41.9 Anxiety disorder, unspecified; H40.9 Unspecified glaucoma; F51.02 Adjustment insomnia; M19.90 Unspecified osteoarthritis, unspecified site; Z86.73 Personal history of transient ischemic attack (TIA), and cerebral infarction without residual deficits; Z87.891 Personal history of nicotine dependence

== ENCOUNTER 2017-08-18 14:13 | Inpatient (IN) | payer MEDICARE, MEDICAID ==
[2017-08-18 14:57] LABS: BASO # 0.02 K/mm3 (0.0-2.0); BASO % 0.2 % (0.0-3.0); EOS # 0.6 (0.0-0.7); EOS % 4.6 % (1.5-5.0); GRAN # 8.66 (1.4-6.5); HEMOGLOBIN 12.9 g/dL (12.0-16.0); LYMPH % 16.2 % (22.0-35.0); MEAN CELL VOLUME 84.2 fl (80.0-105.0); MEAN CORPUSCULAR HEMOGLOBIN 26.8 pg (25.0-35.0); MEAN CORPUSCULAR HGB CONC 31.8 g/dl (31.0-37.0); MEAN PLATELET VOLUME 10.3 fl (7.0-11.0); MONO # 1.1 (0.1-0.6); RBC 4.82 10^6/uL (3.5-6.1); RED CELL DISTRIBUTION WIDTH 16.4 % (11.5-14.5); WHITE BLOOD COUNT 12.4 10^3/ul (4.5-11.0)
[2017-08-18 15:09] LABS: ALB/GLOB RATIO 1.2 (1.1-1.8); ALBUMIN 4.2 g/dL (3.0-4.8); ALT/SGPT 39 U/L (7-56); AST/SGOT 41 U/L (14-36); BLOOD UREA NITROGEN 13 mg/dL (7-21); CALCIUM 10.6 mg/dL (8.4-10.5); GFR AFRICAN-AMERICAN > 60; GFR NON-AFRICAN AMERICAN > 60
[2017-08-18 15:10] LABS: INR 1.06 (0.93-1.08); PARTIAL THROMBOPLASTIN TIME 36.4 Seconds (25.1-36.5); PROTHROMBIN TIME 12.1 SECONDS (9.4-12.5)
[2017-08-18 15:21] LABS: B-TYPE NATRIURETIC PEPTIDE 319 pg/mL (0-450); TROPONIN I < 0.01 ng/mL
[2017-08-18 15:57] LABS: URINE BILIRUBIN NEGATIVE (NEGATIVE); URINE BLOOD NEGATIVE (NEGATIVE); URINE GLUCOSE (UA) NEGATIVE (NEGATIVE); URINE LEUKOCYTE ESTERASE NEGATIVE Leu/uL (NEGATIVE); URINE NITRATE NEGATIVE (NEGATIVE); URINE PROTEIN NEGATIVE mg/dL (<30 mg/dL); URINE UROBILINOGEN 0.2 E.U./dL (<1 E.U./dL)
[2017-08-18 15:58] LABS: URINE APPEARANCE CLEAR (CLEAR); URINE COLOR YELLOW (YELLOW)
[2017-08-18] MEDS ORDERED: HYDROmorphone 1 mg/ml ISec IVP STA (16:39)
--- NOTE | 2017-08-18 16:43 | CT ---
PROCEDURE: CT HEAD WITHOUT CONTRAST. HISTORY: dizziness COMPARISON: 02/20/2013 TECHNIQUE: Axial computed tomography images were obtained through the head/brain without intravenous contrast. Radiation dose: Total exam DLP = 826 mGy-cm. This CT exam was performed using one or more of the following dose reduction techniques: Automated exposure control, adjustment of the mA and/or kV according to patient size, and/or use of iterative reconstruction technique. FINDINGS: HEMORRHAGE: No intracranial hemorrhage. BRAIN: No mass effect or edema. There is mild atrophy. Mild microvascular changes are seen in the basal ganglia and periventricular white matter. No acute findings VENTRICLES: Unremarkable. No hydrocephalus. CALVARIUM: Unremarkable. PARANASAL SINUSES: Unremarkable as visualized. No significant inflammatory changes. MASTOID AIR CELLS: Unremarkable as visualized. No inflammatory changes. OTHER FINDINGS: None. IMPRESSION: No acute intracranial findings
--- NOTE | 2017-08-18 16:44 | RAD ---
HISTORY: dizziness COMPARISON: 07/15/2016 FINDINGS: LUNGS: No active pulmonary disease. PLEURA: No significant pleural effusion identified, no pneumothorax apparent. CARDIOVASCULAR: Normal. OSSEOUS STRUCTURES: No significant abnormalities. VISUALIZED UPPER ABDOMEN: Normal. OTHER FINDINGS: None. IMPRESSION: No active disease.
--- NOTE | 2017-08-18 18:16 | ED PDOC ---
Arrival/HPI - General Chief Complaint: Dizziness/Lightheaded Time Seen by Provider: 08/18/17 14:41 Historian: Patient, Family - History of Present Illness Narrative History of Present Illness (Text): 08/18/17 18:13 72-year-old female presents today with generalized weakness and dizziness. Patient states she's been feeling like this for weeks and is progressively getting worse. Patient denies headache or blurred vision. Patient states that she has had decreased appetite and feels feverish. Patient denies cough. Denies URI symptoms. Patient states on 07/24/2017 she had a right hip surgery. Patient states she has followed up with the surgeon twice since then and at one point he checked blood work and he told her that everything was good. Patient states she has been getting progressively weaker and feels shaky and states that she is feeling extremely dizzy. Patient states she has continued pain in the right hip. Symptom Course: Worsening Quality: Aching Severity Level: 8 Past Medical History - Provider Review Nursing Documentation Reviewed: Yes - Travel History Have you recently traveled outside [place] w/in the past 3 mons?: No - Past History Past History: Non-Contributing - Infectious Disease Hx of Infectious Diseases: None - Tetanus Immunization Tetanus Immunization: Up to Date - Cardiac Hx Cardiac Disorders: Yes Hx Hypertension: Yes - Pulmonary Hx Respiratory Disorders: No - Neurological HX Cerebrovascular Accident: Yes - HEENT Hx HEENT Disorder: Yes Hx Glaucoma: Yes - Renal Hx Renal Disorder: No - Endocrine/Metabolic Hx Endocrine Disorders: No - Hematological/Oncological Hx Blood Disorders: Yes Hx Anemia: Yes - Integumentary Hx Dermatological Disorder: No - Musculoskeletal/Rheumatological Hx Arthritis: Yes - Gastrointestinal Hx Gastrointestinal Disorders: Yes Hx Diverticulitis: Yes Hx Gall Bladder Disease: Yes Other/Comment: hiatal hernia - Genitourinary/Gynecological Hx Genitourinary Disorders: No - Psychiatric Hx Psychophysiologic Disorder: Yes Hx Anxiety: Yes Hx Depression: Yes Hx Substance Use: No - Past Surgical History Past Surgical History: Non-Contributing - Surgical History Hx Appendectomy: Yes Hx Cholecystectomy: Yes Hx Hysterectomy: Yes Other/Comment: right hip surgery 07/2017 - Anesthesia Hx Anesthesia: Yes Hx Anesthesia Reactions: No Hx Malignant Hyperthermia: No - Suicidal Assessment Feels Threatened In Home Enviroment: No Family/Social History - Physician Review Nursing Documentation Reviewed: Yes Family/Social History: Unknown Family HX Smoking Status: Never Smoked Hx Alcohol Use: No Hx Substance Use: No Hx Substance Use Treatment: No Allergies/Home Meds Allergies/Adverse Reactions: Allergies atorvastatin calcium [From Lipitor] Allergy (Verified 08/18/17 14:27) FATIGUE clopidogrel bisulfate [From Plavix] Allergy (Verified 08/18/17 14:27) SHORTNESS OF BREATH nalbuphine HCl [From Nubain] Allergy (Verified 08/18/17 14:27) VOMITING Home Medications: Home Meds Medication Instructions Recorded Confirmed Omeprazole [Prilosec] 20 mg PO BID 04/19/15 08/18/17 Review of Systems - Review of Systems Constitutional: Fatigue, Other (chills). absent: Fevers Respiratory: absent: SOB, Cough Cardiovascular: absent: Chest Pain, Palpitations Gastrointestinal: Nausea. absent: Abdominal Pain, Constipation, Diarrhea, Vomiting Genitourinary Female: absent: Dysuria, Frequency, Hematuria Musculoskeletal: Arthralgias (right hip pain). absent: Back Pain, Neck Pain Skin: absent: Rash, Pruritis Neurological: Dizziness. absent: Headache, Focal Weakness, Speech Changes Psychiatric: absent: Anxiety, Depression, Suicidal Ideation Physical Exam Vital Signs Reviewed: Yes Vital Signs Temp Pulse Resp BP Pulse Ox 08/18/17 19:03 84 20 120/77 94 L 08/18/17 14:21 97.6 F 85 20 167/92 H 97 08/18/17 14:14 101 H 18 158/93 H 95 Temperature: Afebrile Blood Pressure: Hypertensive Pulse: Regular Respiratory Rate: Normal Appearance: Positive for: Well-Appearing, Non-Toxic, Comfortable Pain Distress: None Mental Status: Positive for: Alert and Oriented X 3 - Systems Exam Head: Present: Atraumatic Mouth: Present: Moist Mucous Membranes Neck: Present: Normal Range of Motion Respiratory/Chest: Present: Clear to Auscultation, Good Air Exchange. No: Respiratory Distress, Accessory Muscle Use Cardiovascular: Present: Regular Rate and Rhythm, Normal S1, S2. No: Murmurs Abdomen: Present: Tenderness (minimal diffuse tenderness), Normal Bowel Sounds. No: Distention, Peritoneal Signs, Rebound, Guarding Back: Present: Normal Inspection. No: CVA Tenderness, Midline Tenderness, Paraspinal Tenderness Upper Extremity: Present: Normal ROM. No: Tenderness, Swelling, Erythema, Neurovascularly Intact Lower Extremity: Present: Normal ROM, Tenderness (right hip; sutures clean, dry , intact; no erythema; full rom of hip with pain; sensation and distal pulses intact. cap refill <2. no lower leg edema; ), Neurovascularly Intact, Capillary Refill < 2 s. No: Swelling, Erythema Neurological: Present: GCS=15, Speech Normal, Motor Func Grossly Intact, Normal Sensory Function Skin: Present: Warm, Dry Psychiatric: Present: Alert, Oriented x 3 Medical Decision Making ED Course and Treatment: 08/18/17 18:18 72yr old female with dizziness and generalized weakness. cbc: wbc; 12.4 cmp; alkphos; 334 trop; wnl pt/ptt; wnl ekg; NSR at 99 b/m no st elevations, normal axis, normal intervals. [id number] cxr; wnl ct head; FINDINGS: HEMORRHAGE: No intracranial hemorrhage. BRAIN: No mass effect or edema. There is mild atrophy. Mild microvascular changes are seen in the basal ganglia and periventricular white matter. No acute findings VENTRICLES: Unremarkable. No hydrocephalus. CALVARIUM: Unremarkable. PARANASAL SINUSES: Unremarkable as visualized. No significant inflammatory changes. MASTOID AIR CELLS: Unremarkable as visualized. No inflammatory changes. OTHER FINDINGS: None. IMPRESSION: No acute intracranial findings UA: wnl ct abd/pelvis; FINDINGS: Lower thorax: Mild dependent atelectatic changes are identified within the lower lobes. There is atherosclerosis of the distal thoracic aorta with mild ectasia measuring 2.9 cm in diameter. There is a small hiatal hernia. ABDOMEN: Liver: There is low density identified within the medial segment of the left lobe of the liver adjacent to the falciform ligament. This is a common location for fatty infiltration. Gallbladder and bile ducts: Surgical clips are identified within the gallbladder fossa, compatible with cholecystectomy. Pancreas: Normal contour, without acute peripancreatic stranding. Spleen: No splenomegaly. Adrenals: No mass. Kidneys and ureters: Stable parenchymal scarring is identified at the midpole the left kidney. There is no hydronephrosis bilaterally. Stomach and bowel: Multiple colonic diverticula are visualized. There is wall thickening of the transverse colon, splenic flexure, descending colon and sigmoid colon, suggestive of colitis. There is gaseous and fecal distention of the cecum. An increase in submucosal fat is visualized within the ascending colon, which can be associated with inflammatory bowel disease. Air- fluid levels are identified within small bowel loops, with a new mildly dilated small bowel loop within the upper abdomen. Partial obstruction cannot be excluded. This dilated small bowel loop measures 3.2 cm in diameter. Appendix: The appendix is absent. PELVIS: Bladder: No mass. Reproductive: The uterus is absent. ABDOMEN and PELVIS: Intraperitoneal space: No free air. Bones/joints: Postoperative changes are identified with a right hip prosthesis, with new postoperative changes involving the proximal right femur with surrounding heterotopic ossification. There is mild levoscoliosis of the lumbar spine. Hypertrophic degenerative changes are noted within the spine. There is slight anterolisthesis of L5 on S1. Soft tissues: There is soft tissue swelling or scarring lateral to the right hip with calcifications. There is a small herniation of fat into the umbilicus. Vasculature: There is atherosclerotic calcification of the abdominal aorta and iliac arteries. Lymph nodes: Enlarged right external iliac chain lymph nodes are identified, the largest measuring 2.3 x 1.2 cm. This lymphadenopathy is new compared to the prior study, but nonspecific as to etiology. IMPRESSION: 1. Multiple colonic diverticula are visualized. There is wall thickening of the transverse colon, splenic flexure, descending colon and sigmoid colon, suggestive of colitis. 2. Enlarged right external iliac chain lymph nodes are identified, the largest measuring 2.3 x 1.2 cm. This lymphadenopathy is new compared to the prior study, but nonspecific as to etiology. 3. Air-fluid levels are identified within small bowel loops, with a new mildly dilated small bowel loop within the upper abdomen. Partial obstruction cannot be excluded. 4. There is gaseous and fecal distention of the cecum. An increase in submucosal fat is visualized within the ascending colon, which can be associated with inflammatory bowel disease. 5. Additional CT findings described above will start patient on rocephin and flagyl for colitis. will have surgery evaluation for partial SBO. pt of dr. vila; admits to dr. hernández; dr. levi is covering dr. hernández. case discussed with dr. levi in depth; accepts admission; will consult dr. aguilar for ? partial SBO case discussed with surgical asst dr. Agustina Badillo who will see patient at bedside. impression; dizziness, weakness, colitis, possible partial SBO admit to tele. - Lab Interpretations Lab Results: 08/18/17 14:50 08/18/17 14:50 Lab Results 08/18/17 15:45: Urine Color Yellow, Urine Appearance Clear, Urine pH 6.0, Ur Specific [place] 1.025, Urine Protein Negative, Urine Glucose (UA) Negative, Urine Ketones 15 H, Urine Blood Negative, Urine Nitrate Negative, Urine Bilirubin Negative, Urine Urobilinogen 0.2, Ur Leukocyte Esterase Negative 08/18/17 14:50: WBC 12.4 H D, RBC 4.82, Hgb 12.9, Hct 40.6, MCV 84.2 D, MCH 26.8, MCHC 31.8, RDW 16.4 H, Plt Count 456 H, MPV 10.3, Gran % 70.0 H, Lymph % ( Auto) 16.2 L, [place] % (Auto) 9.0 H, Eos % (Auto) 4.6, Baso % (Auto) 0.2, Gran # 8.66 H, Lymph # (Auto) 2.0, [place] # (Auto) 1.1 H, Eos # (Auto) 0.6, Baso # (Auto ) 0.02 08/18/17 14:50: Sodium 145, Potassium 4.2, Chloride 106, Carbon Dioxide 27, Anion Gap 16, BUN 13, Creatinine 0.7, Est GFR ( Amer) > 60, Est GFR (Non- Af Amer) > 60, Random Glucose 107, Calcium 10.6 H, Total Bilirubin 0.4, AST 41 H D, ALT 39, Alkaline Phosphatase 334 H D, Lactate Dehydrogenase 638, Total Creatine Kinase 25 L, Troponin I < 0.01, NT-Pro-B Natriuret Pep 319, Total Protein 7.8, Albumin 4.2, Globulin 3.5, Albumin/Globulin Ratio 1.2 08/18/17 14:50: PT 12.1, INR 1.06, APTT 36.4 - RAD Interpretation Radiology Orders: 08/18/17 14:54 CHEST PORTABLE [RAD] Stat 08/18/17 15:24 HEAD W/O CONTRAST [CT] Stat 08/18/17 17:58 ABD & PELVIS IV CONTRAST ONLY [CT] Stat - Medication Orders Current Medication Orders: Discontinued Medications Hydromorphone HCl (Dilaudid) 0.5 mg IVP STAT STA Stop: 08/18/17 16:40 Last Admin: 08/18/17 16:52 Dose: 0.5 mg MAR Pain Assessment Document 08/18/17 16:52 SRE (Rec: 08/18/17 16:55 SRE [id number]) Pain Reassessment Is this a pain reassessment? Yes Sleep Is patient sleeping during reassessment? No Presence of Pain Presence of Pain Yes Pain Scale Used Pain Scale Used Numeric Location Left, Right or Bilateral Right Pain Location Body Site Hip Description Description Intermittent IVP Administration Document 08/18/17 16:52 SRE (Rec: 08/18/17 16:55 SRE [id number]) Charges for Administration # of IVP Administrations 1 Re-Assess: [facility] Pain Assessment Document 08/18/17 17:52 SRE (Rec: 08/18/17 19:21 SRE [id number]) Pain Reassessment Is this a pain reassessment? Yes Sleep Is patient sleeping during reassessment? No Presence of Pain Presence of Pain Yes Pain Scale Used Pain Scale Used Numeric Location Left, Right or Bilateral Right Pain Location Body Site Hip Description Description Intermittent Hydromorphone HCl (Dilaudid) 0.5 mg IVP STAT STA Stop: 08/18/17 20:52 Metronidazole (Flagyl) 500 mg in 100 mls @ 100 mls/hr IVPB STAT STA PRN Reason: Protocol Stop: 08/18/17 20:53 Last Admin: 08/18/17 20:38 Dose: 100 mls/hr eMAR Start Stop Document 08/18/17 20:38 LA (Rec: 08/18/17 20:38 LA [id number]) Intravenous Solution Start Date 08/18/17 Start Time 20:38 Ceftriaxone Sodium (Rocephin 1 Gram Ivpb) 1 gm in 100 mls @ 200 mls/hr IVPB STAT STA PRN Reason: Protocol Stop: 08/18/17 20:23 Last Admin: 08/18/17 19:58 Dose: 200 mls/hr eMAR Start Stop Document 08/18/17 19:58 LA (Rec: 08/18/17 19:58 LA [id number]) Intravenous Solution Start Date 08/18/17 Start Time 19:58 Disposition/Present on Arrival - Present on Arrival Any Indicators Present on Arrival: No History of DVT/PE: No History of Uncontrolled Diabetes: No Urinary Catheter: No History of Decub. Ulcer: No History Surgical Site Infection Following: None - Disposition Have Diagnosis and Disposition been Completed?: Yes Diagnosis: Dizziness, Weakness, Colitis Disposition: HOSPITALIZED Disposition Time: 20:01 Patient Plan: Observation Patient Problems: Current Active Problems Problem Status Onset Colitis Acute Dizziness Acute Weakness Acute Condition: FAIR Discharge Instructions (ExitCare): Weakness (ED) Referrals: Iveth Vila MD [Primary Care Provider] - Follow up with primary Forms: [employer] (Croatian)
[2017-08-18] MEDS ORDERED: Iohexol 350 MG/100 ML VIAL ONE (18:18)
--- NOTE | 2017-08-18 19:48 | CT ---
EXAM: CT Abdomen and Pelvis With Intravenous Contrast EXAM DATE/TIME: 08/18/2017 5:58 PM CLINICAL HISTORY: The patient age is 72 years old and is female; Pain; Abdominal pain; Prior surgery; Surgery type: Appendectomy - cholecystectomy - hysterectomy - rt hip SX; Additional info: Abd pain Facility exam id and description: Ct abdpelciv abd pelvis iv contrast only TECHNIQUE: Axial computed tomography images of the abdomen and pelvis with intravenous contrast. All CT scans at this facility use one or more dose reduction techniques, viz.: automated exposure control; ma/kV adjustment per patient size (including targeted exams where dose is matched to indication; i.e. head); or iterative reconstruction technique. Coronal and sagittal reformatted images were created and reviewed. CONTRAST: 100 mL of OMNI 350 administered intravenously. COMPARISON: CT - ABD PELVIS W/O PO OR IV CONT 2016-04-02 00:21 FINDINGS: Lower thorax: Mild dependent atelectatic changes are identified within the lower lobes. There is atherosclerosis of the distal thoracic aorta with mild ectasia measuring 2.9 cm in diameter. There is a small hiatal hernia. ABDOMEN: Liver: There is low density identified within the medial segment of the left lobe of the liver adjacent to the falciform ligament. This is a common location for fatty infiltration. Gallbladder and bile ducts: Surgical clips are identified within the gallbladder fossa, compatible with cholecystectomy. Pancreas: Normal contour, without acute peripancreatic stranding. Spleen: No splenomegaly. Adrenals: No mass. Kidneys and ureters: Stable parenchymal scarring is identified at the midpole the left kidney. There is no hydronephrosis bilaterally. Stomach and bowel: Multiple colonic diverticula are visualized. There is wall thickening of the transverse colon, splenic flexure, descending colon and sigmoid colon, suggestive of colitis. There is gaseous and fecal distention of the cecum. An increase in submucosal fat is visualized within the ascending colon, which can be associated with inflammatory bowel disease. Air-fluid levels are identified within small bowel loops, with a new mildly dilated small bowel loop within the upper abdomen. Partial obstruction cannot be excluded. This dilated small bowel loop measures 3.2 cm in diameter. Appendix: The appendix is absent. PELVIS: Bladder: No mass. Reproductive: The uterus is absent. ABDOMEN and PELVIS: Intraperitoneal space: No free air. Bones/joints: Postoperative changes are identified with a right hip prosthesis, with new postoperative changes involving the proximal right femur with surrounding heterotopic ossification. There is mild levoscoliosis of the lumbar spine. Hypertrophic degenerative changes are noted within the spine. There is slight anterolisthesis of L5 on S1. Soft tissues: There is soft tissue swelling or scarring lateral to the right hip with calcifications. There is a small herniation of fat into the umbilicus. Vasculature: There is atherosclerotic calcification of the abdominal aorta and iliac arteries. Lymph nodes: Enlarged right external iliac chain lymph nodes are identified, the largest measuring 2.3 x 1.2 cm. This lymphadenopathy is new compared to the prior study, but nonspecific as to etiology. IMPRESSION: 1. Multiple colonic diverticula are visualized. There is wall thickening of the transverse colon, splenic flexure, descending colon and sigmoid colon, suggestive of colitis. 2. Enlarged right external iliac chain lymph nodes are identified, the largest measuring 2.3 x 1.2 cm. This lymphadenopathy is new compared to the prior study, but nonspecific as to etiology. 3. Air-fluid levels are identified within small bowel loops, with a new mildly dilated small bowel loop within the upper abdomen. Partial obstruction cannot be excluded. 4. There is gaseous and fecal distention of the cecum. An increase in submucosal fat is visualized within the ascending colon, which can be associated with inflammatory bowel disease. 5. Additional CT findings described above.
[2017-08-18] MEDS ORDERED: metroNIDAZOLE IV 500 mg/100 ml 500 MG/100 ML BAG IVPB STA (19:54)
[2017-08-18] MEDS ORDERED: cefTRIAXone 1 gm 1 GM/100 ML BAG IVPB STA (19:54)
[2017-08-18] MEDS ORDERED: HYDROmorphone 0.5 mg/0.5 ml ISec IVP STA (20:51)
[2017-08-18] MEDS ORDERED: Ciprofloxacin 200mg/100ml D5W 100 ML IVPB SCH (22:30)
[2017-08-18 22:41] VITALS: BMI 40.4
[2017-08-18] MEDS ORDERED: metroNIDAZOLE IV 250mg/50 ml 250 MG/50 ML BAG IVPB SCH (22:45)
[2017-08-18] MEDS: metroNIDAZOLE IV 250mg/50 ml 250 MG/50 ML BAG IV SCH (22:45)
[2017-08-18] MEDS ORDERED: Sodium Chloride 0.9% 1,000 ML IV SCH (22:45)
[2017-08-18] MEDS: Dextrose 5%/0.45% NS 1,000 ML IV SCH (23:17)
[2017-08-18] MEDS: HYDROmorphone 0.5 mg/0.5 ml ISec IVP PRN (23:18)
--- NOTE | 2017-08-19 03:55 | HP ---
HISTORY OF PRESENT ILLNESS: The patient is 72-year-old, came to emergency room because of having generalized weakness, poor appetite, increasingly weak, difficulty walking. The patient does not have any pinpoint problems except having generalized weakness, and according to daughter, she looked pale, and has not been eating well. The patient's daughter does state that she has tactile fever. No history of nausea or vomiting. No history of fever or chills. The patient was recently admitted, had a recent fall and had a hip surgery. PAST MEDICAL HISTORY: Significant for: 1. Hypertension. 2. History of generalized osteoarthritis. 3. Anemia. 4. History of CVA in the past. PAST SURGICAL HISTORY: Significant for: 1. Right hip surgery. 2. Status post appendectomy. 3. Cholecystectomy. 4. Hysterectomy. SOCIAL HISTORY: She quit smoking 25 years ago. She used to be a heavy smoker, socially drinks. ALLERGIES: SHE IS ALLERGIC TO LIPITOR, PLAVIX AND NALBUPHINE. MEDICATIONS AT HOME: The patient is on timolol eyedrops, Zoloft 100 mg daily, omeprazole 20 mg daily and Percocet as needed. REVIEW OF SYSTEMS: Significant for generalized weakness, poor appetite, and has difficulty walking. PHYSICAL EXAMINATION GENERAL: She is awake and alert, able to communicate. VITAL SIGNS: She is afebrile. Pulse 76, respirations 19, blood pressure 123/79. LUNGS: Bilaterally fair air flow. No rhonchi or crackles. HEART: S1 and S2 audible. ABDOMEN: Soft, obese, nontender. No rebound, no guarding. NEUROLOGIC: She is awake and alert, able to communicate. LABORATORY DATA: WBC is 12.4, hemoglobin 12.9, hematocrit 40.6, platelets 456. PT 12.1, INR 1.06. Chemistry, sodium 145, potassium is 4.2, chloride 106, CO2 of 27, BUN 13, creatinine 0.7, blood sugar of 107, calcium 10.6, AST 41, alkaline phosphatase 334, LDH is 638. CT scan of the abdomen and pelvis was done that shows multiple colonic diverticula with wall thickening of transverse colon, splenic flexure, descending colon and sigmoid colon suggestive of colitis. She has enlarged right iliac lymph nodes along with lymphadenopathy. Air-fluid levels are also identified within the small bowel loop, with a new mildly dilated small bowel loop within the upper abdomen, partial small bowel obstruction cannot be excluded. ASSESSMENT: 1. Questionable partial small bowel obstruction and colitis. 2. Hypertension. 3. Hyperlipidemia. 4. History of glaucoma. 5. Gastritis. PLAN: We will start the patient on IV fluids, IV antibiotics, keep her n.p.o. for now. Surgical consult by Dr. Basurto has been requested. We will follow up electrolytes in a.m. Jude Chamberlain MD
[2017-08-19] MEDS: HYDROmorphone 0.5 mg/0.5 ml ISec IVP PRN ×2 (04:22→11:17)
[2017-08-19] MEDS: metroNIDAZOLE IV 250mg/50 ml 250 MG/50 ML BAG IV SCH ×3 (06:08→22:15)
[2017-08-19 08:17] LABS: BASO # 0.02 K/mm3 (0.0-2.0); BASO % 0.2 % (0.0-3.0); EOS % 12.4 % (1.5-5.0); GRAN # 4.02 (1.4-6.5); HEMOGLOBIN 11.2 g/dL (12.0-16.0); LYMPH # 2.4 (1.2-3.4); LYMPH % 28.9 % (22.0-35.0); MEAN CELL VOLUME 85.3 fl (80.0-105.0); MEAN CORPUSCULAR HEMOGLOBIN 26.2 pg (25.0-35.0); MEAN CORPUSCULAR HGB CONC 30.7 g/dl (31.0-37.0); MEAN PLATELET VOLUME 10.6 fl (7.0-11.0); MONO # 0.8 (0.1-0.6); MONO % 9.5 % (1.0-6.0); RBC 4.28 10^6/uL (3.5-6.1); RED CELL DISTRIBUTION WIDTH 16.7 % (11.5-14.5); WHITE BLOOD COUNT 8.2 10^3/ul (4.5-11.0)
--- NOTE | 2017-08-19 08:48 | CP.PCM.CON ---
History of Present Illness - History of Present Illness History of Present Illness: Surgery 72 yo female with PMH of diverticulitis , diverticulosis came with weakness and diziness. Pt had recent hip surgery. CT of the abdomen showed colitis and possible early partial SBO. Pt denies F/C/N/V/hematemesis/hematuria. Reports watery diarrhea. Denies abd pain. PMH: HTN, CVA, glaucoma, anemia, arthritis PSH: right hip surgery, appendectomy, cholecystectomy, hysterectomy Social hx: quit smoking 25 yo, before 3ppd, denies Etoch use, illicit drug use allergy: lipitor, plavix, nalbuphine meds: timolol, motrin, enalapril, bactroban ointment, cefuroxime, prilosce, percocet 5/325, zoloft Review of Systems - Review of Systems Review of Systems: See HPI Past Patient History - Infectious Disease Hx of Infectious Diseases: None - Tetanus Immunizations Tetanus Immunization: Up to Date - Past Social History Smoking Status: Former Smoker - CARDIAC Hx Hypertension: Yes - PULMONARY Hx Respiratory Disorders: No - NEUROLOGICAL HX Cerebrovascular Accident: Yes - HEENT Hx Glaucoma: Yes - RENAL Hx Chronic Kidney Disease: No - ENDOCRINE/METABOLIC Hx Endocrine Disorders: No - HEMATOLOGICAL/ONCOLOGICAL Hx Anemia: Yes - INTEGUMENTARY Hx Dermatological Problems: No - MUSCULOSKELETAL/RHEUMATOLOGICAL Hx Falls: No - GASTROINTESTINAL Hx Gastrointestinal Disorders: Yes Hx Diverticulitis: Yes Hx Gall Bladder Disease: Yes - GENITOURINARY/GYNECOLOGICAL Hx Genitourinary Disorders: No - PSYCHIATRIC Hx Psychophysiologic Disorder: Yes Hx Anxiety: Yes Hx Depression: Yes - SURGICAL HISTORY Hx Appendectomy: Yes Hx Cholecystectomy: Yes Hx Hysterectomy: Yes Other/Comment: right hip surgery 07/2017 - ANESTHESIA Hx Anesthesia: Yes Hx Anesthesia Reactions: No Hx Malignant Hyperthermia: No Meds Allergies/Adverse Reactions: Allergies Allergy/AdvReac Type Severity Reaction Status Date / Time atorvastatin calcium Allergy FATIGUE Verified 08/18/17 14:27 [From Lipitor] clopidogrel bisulfate Allergy SHORTNESS Verified 08/18/17 14:27 [From Plavix] OF BREATH nalbuphine HCl [From Nubain] Allergy VOMITING Verified 08/18/17 14:27 - Medications Medications: Current Medications Acetaminophen (Tylenol 325mg Tab) 650 mg PO Q6H PRN PRN Reason: Fever >100.4 F Clonidine HCl (Catapres) 0.1 mg PO Q4 PRN PRN Reason: BLOOD PRESSURE Hydromorphone HCl (Dilaudid) 0.5 mg IVP Q4H PRN PRN Reason: Pain, severe (8-10) Last Admin: 08/19/17 04:22 Dose: 0.5 mg Dextrose/Sodium Chloride (Dextrose 5%/0.45% Ns 1000 Ml) 1,000 mls @ 75 mls/hr IV .[id number] [facility] Last Admin: 08/18/17 23:17 Dose: 75 mls/hr Metronidazole (Flagyl) 250 mg in 50 mls @ 100 mls/hr IV Q8 [facility] PRN Reason: Protocol Stop: 08/23/17 22:46 Last Admin: 08/19/17 06:08 Dose: 100 mls/hr Ceftriaxone Sodium (Rocephin 1 Gram Ivpb) 1 gm in 100 mls @ 100 mls/hr IVPB DAILY [facility] PRN Reason: Protocol Ondansetron HCl (Zofran Inj) 4 mg IVP Q6H PRN PRN Reason: Nausea/Vomiting Pantoprazole Sodium (Protonix Inj) 40 mg IVP DAILY [facility] Physical Exam - Constitutional Appears: No Acute Distress - Head Exam Head Exam: ATRAUMATIC, NORMAL INSPECTION, NORMOCEPHALIC - Eye Exam Eye Exam: EOMI, Normal appearance, PERRL Pupil Exam: NORMAL ACCOMODATION, PERRL - ENT Exam ENT Exam: Mucous Membranes Moist, Normal Exam - Neck Exam Neck exam: Positive for: Normal Inspection - Respiratory Exam Respiratory Exam: Clear to Auscultation Bilateral, NORMAL BREATHING PATTERN - GI/Abdominal Exam GI & Abdominal Exam: Normal Bowel Sounds, Soft. absent: Distended, Firm, Guarding, Hernia, Rigid, Tenderness - Exam Exam: NORMAL INSPECTION - Extremities Exam Additional comments: R hip incision C/D/I. NO erythema - Back Exam Back exam: NORMAL INSPECTION - Neurological Exam Neurological exam: Alert, CN II-XII Intact, Normal Gait, Oriented x3, Reflexes Normal - Psychiatric Exam Psychiatric exam: Normal Affect, Normal Mood - Skin Skin Exam: Dry, Intact, Normal Color, Warm Results - Vital Signs Recent Vital Signs: Last Vital Signs Temp 98.4 F 08/19/17 06:00 Pulse 73 08/19/17 06:00 Resp 20 08/19/17 06:00 BP 138/78 08/19/17 06:00 Pulse Ox 95 08/19/17 06:00 - Labs Result Diagrams: 08/19/17 07:30 08/18/17 14:50 Labs: Laboratory Results - last 24 hr 08/19/17 07:30 WBC 8.2 D RBC 4.28 Hgb 11.2 L Hct 36.5 MCV 85.3 MCH 26.2 MCHC 30.7 L RDW 16.7 H Plt Count 353 MPV 10.6 Gran % 49.0 L Lymph % (Auto) 28.9 [place] % (Auto) 9.5 H Eos % (Auto) 12.4 H Baso % (Auto) 0.2 Gran # 4.02 Lymph # (Auto) 2.4 [place] # (Auto) 0.8 H Eos # (Auto) 1.0 H Baso # (Auto) 0.02 Assessment & Plan - Assessment and Plan (Free Text) Assessment: Colitis COnservative management NPO IVF ABX GI on board WIll MILES Basurto
[2017-08-19 09:23] LABS: ALB/GLOB RATIO 1.2 (1.1-1.8); ALBUMIN 3.5 g/dL (3.0-4.8); ALT/SGPT 38 U/L (7-56); AST/SGOT 48 U/L (14-36); BLOOD UREA NITROGEN 10 mg/dL (7-21); CALCIUM 9.4 mg/dL (8.4-10.5); GFR AFRICAN-AMERICAN > 60; GFR NON-AFRICAN AMERICAN > 60
[2017-08-19] MEDS: cefTRIAXone 1 gm 1 GM/100 ML BAG IVPB SCH (10:40)
--- NOTE | 2017-08-19 11:53 | CARD ---
APPROVED REPORT EKG Measurement Heart [id number] <Conclusion> Normal sinus rhythm Prolonged QT Abnormal ECG
[2017-08-19] MEDS: Dextrose 5%/0.45% NS 1,000 ML IV SCH (12:15)
[2017-08-19] MEDS ORDERED: Sucralfate 1 gm/10 ml Oral Susp UD PO STA (15:16)
--- NOTE | 2017-08-19 15:34 | PN ---
DATE: SUBJECTIVE: The patient is 72 years old, seen and examined, seems to be doing a lot better. She states she is hungry. She is passing gas, but did not have bowel movement. Still complaining of generalized weakness. PHYSICAL EXAMINATION: VITAL SIGNS: She is afebrile, pulse 70, respirations 18, blood pressure 151/74. LUNGS: Bilateral fair airflow. No rhonchi or crackle. HEART: S1 and S2 audible. ABDOMEN: Soft. Nontender. No rebound. No guarding. Bowel sounds are positive. NEUROLOGIC: She is awake, alert, oriented and communicative. LABORATORY DATA: WBC is 8.2, hemoglobin 11.2, hematocrit 36.5, platelet 353. Chemistry: Sodium 143, potassium 3.9, chloride 107, CO2 of 29, BUN 10, creatinine 0.6, blood sugar 111, alk phos is 238. Urinalysis is unremarkable. ASSESSMENT: 1. Generalized weakness, etiology unknown, questionable partial small bowel obstruction by imaging study; however, clinically the patient looks stable. She is nontender on palpation and bowel sounds are positive. 2. Status post recent right hip surgery. 3. Hypertension. 4. Hyperlipidemia. PLAN: We will advance the patient's diet. If she tolerate, we will discontinue IV fluid. Start her on physical therapy. If the patient tolerate food and ambulates, discharge plan for a.m. Jude Chamberlain MD
[2017-08-19] MEDS ORDERED: Oxycodone/Acetaminophen 5/325 mg Tab PO PRN (18:29)
[2017-08-19] MEDS: oxyCODONE 5 mg Immediate Release Tab PO PRN (19:29)
[2017-08-19] MEDS: oxyCODONE 10 mg Immediate Release Tab PO PRN (22:37)
[2017-08-20] MEDS: metroNIDAZOLE IV 250mg/50 ml 250 MG/50 ML BAG IV SCH ×2 (06:03→14:40)
[2017-08-20] MEDS ORDERED: Pantoprazole 40 mg EC Tab PO SCH (06:30)
[2017-08-20] MEDS: oxyCODONE 10 mg Immediate Release Tab PO PRN (06:49)
[2017-08-20 07:13] VITALS: O2SAT 95
[2017-08-20 07:26] LABS: HEMOGLOBIN 10.9 g/dL (12.0-16.0); MEAN CELL VOLUME 84.8 fl (80.0-105.0); MEAN CORPUSCULAR HGB CONC 30.6 g/dl (31.0-37.0); MEAN PLATELET VOLUME 10.5 fl (7.0-11.0); RBC 4.2 10^6/uL (3.5-6.1); RED CELL DISTRIBUTION WIDTH 16.5 % (11.5-14.5); WHITE BLOOD COUNT 7.8 10^3/ul (4.5-11.0)
[2017-08-20 07:46] LABS: ALB/GLOB RATIO 1.2 (1.1-1.8); ALBUMIN 3.4 g/dL (3.0-4.8); ALT/SGPT 46 U/L (7-56); AST/SGOT 58 U/L (14-36); BLOOD UREA NITROGEN 11 mg/dL (7-21); CALCIUM 9.5 mg/dL (8.4-10.5); GFR AFRICAN-AMERICAN > 60; GFR NON-AFRICAN AMERICAN > 60; MAGNESIUM 2.1 mg/dL (1.7-2.2)
--- NOTE | 2017-08-20 08:03 | CON ---
DATE: 08/19/2017 REASON FOR CONSULTATION: Abdominal pain. HISTORY OF PRESENT ILLNESS: This is a 72-year-old patient with a past medical history of diverticulosis, peptic ulcer disease, status post cholecystectomy, admitted with complaints of weakness and dizziness, presenting over a period of two weeks. The patient did have revision of the hip surgery done about three weeks ago. The patient felt weakness since that time. The patient also had some abdominal discomfort, presented to the ER. The patient did have a CT scan done in the ER was found to have suspected partial obstruction, admitted for reevaluation. The patient has been seen by Surgery. Now started on clear liquid diet, tolerating on full liquid for soft diet. The patient denies any abdominal discomfort now. Feels overall weak. Complains of some nausea. PAST MEDICAL HISTORY: Other past medical history, significant as above, history of hypertension, CVA, glaucoma, anemia, arthritis. The patient had an endoscopy and a colonoscopy, endoscopy was in 2014 and colonoscopy was done before at the [facility], found to have only diverticulosis and hemorrhoids and redundant colon. As per the patient, no polyps. PAST SURGICAL HISTORY: Other surgical history, significant for right hip surgery twice and appendicectomy, cholecystectomy, and hysterectomy. SOCIAL HISTORY: Ex-smoker. Alcohol: Denies alcohol use. ALLERGIES: TO LIPITOR, PLAVIX, AND NALBUPHINE. FAMILY HISTORY: Noncontributory. REVIEW OF SYSTEMS: Positive as above. PHYSICAL EXAMINATION GENERAL: On examination, the patient is lying on the bed, not in any acute distress. VITAL SIGNS: Temperature is 98.2, blood pressure is 151/74, pulse 78, respirations 18, O2 saturation is 99%. HEENT: Atraumatic, anicteric. NECK: Supple. HEART: S1 and S2 heard. LUNGS: Bilateral air entry present. ABDOMEN: Soft. There is no mass palpable. No tenderness at this time. There is right hip area sutures still present. NEUROLOGIC: Alert and oriented. Moves all the extremities. LABORATORY DATA: Hemoglobin 11.2, hematocrit 36.5, WBC is 8.2, platelets 353. Chemistry, alkaline phosphatase is 238. IMPRESSION: 1. This is a 72-year-old patient status post cholecystectomy, history of diverticulitis in the past, admitted with weakness. Episodes of loose bowel movement yesterday. Has an abdominal discomfort, comes to the emergency room. The CT scan suspected partial obstruction. The patient is now tolerating the diet. No complaints of any abdominal discomfort now. The patient is complaining of some nausea. 2. Status post revision hip surgery twice. Has complaints of weakness since that time. 3. Other comorbidities include hypertension, arthritis, status post , history of hepatitis C antibody positive. As per the patient, not treated as the viral load was negative. RECOMMENDATIONS: We would recommend: 1. The patient was on Eliquis and DVT prophylaxis in the past. The patient is reasonable to resume it. If no procedure is contemplated, the patient can be given Lovenox dose for DVT prophylaxis. 2. Slowly advance the diet. 3. The patient does have an elevated alkaline phosphatase. Rest of the labs are okay, this could be from the bone etiology, also we will request for a GGTP as a followup. We will continue to closely follow up her care and suggest further management based on the clinical course. Billy Dowling MD
[2017-08-20] MEDS: cefTRIAXone 1 gm 1 GM/100 ML BAG IVPB SCH (09:47)
--- NOTE | 2017-08-20 10:00 | CP.PCM.PN ---
Subjective - Date & Time of Evaluation Date of Evaluation: 08/20/17 Time of Evaluation: 09:57 - Subjective Subjective: Surgery progress note for Dr. Basurto Patient seen and examined at bedside. No acute events overnight, patient denies fevers, chills, pain, nausea, vomiting, and diarrhea. Objective - Vital Signs/Intake and Output Vital Signs (last 24 hours): Temp Pulse Resp BP Pulse Ox 97.1 F L 76 20 143/76 95 08/20/17 06:00 08/20/17 09:47 08/20/17 06:00 08/20/17 09:47 08/20/17 06:00 Intake and Output: 08/20/17 08/20/17 06:59 18:59 Intake Total 120 120 Output Total 0 Balance 120 120 - Medications Medications: Current Medications Acetaminophen (Tylenol 325mg Tab) 650 mg PO Q6H PRN PRN Reason: Fever >100.4 F Acetaminophen (Tylenol 325mg Tab) 650 mg PO Q6H PRN PRN Reason: Pain, Mild (1-3) Apixaban (Eliquis) 5 mg PO BID [facility] PRN Reason: Protocol Last Admin: 08/20/17 09:48 Dose: 5 mg Aspirin (Aspirin Chewable) 81 mg PO DAILY [facility] Last Admin: 08/20/17 09:48 Dose: 81 mg Clonidine HCl (Catapres) 0.1 mg PO Q4 PRN PRN Reason: BLOOD PRESSURE Last Admin: 08/20/17 06:02 Dose: 0.1 mg Metronidazole (Flagyl) 250 mg in 50 mls @ 100 mls/hr IV Q8 [facility] PRN Reason: Protocol Stop: 08/23/17 22:46 Last Admin: 08/20/17 06:03 Dose: 100 mls/hr Ceftriaxone Sodium (Rocephin 1 Gram Ivpb) 1 gm in 100 mls @ 100 mls/hr IVPB DAILY [facility] PRN Reason: Protocol Last Admin: 08/20/17 09:47 Dose: 100 mls/hr Lisinopril (Zestril) 10 mg PO BID [facility] Last Admin: 08/20/17 09:47 Dose: 10 mg Ondansetron HCl (Zofran Inj) 4 mg IVP Q6H PRN PRN Reason: Nausea/Vomiting Oxycodone HCl (Oxycodone Immediate Release Tab) 5 mg PO Q6H PRN PRN Reason: Pain, moderate (4-7) Last Admin: 08/19/17 19:29 Dose: 5 mg Oxycodone HCl (Oxycodone Immediate Release Tab) 10 mg PO Q6H PRN PRN Reason: Pain, severe (8-10) Last Admin: 08/20/17 06:49 Dose: 10 mg Pantoprazole Sodium (Protonix Ec Tab) 40 mg PO 0630 [facility] Last Admin: 08/20/17 06:49 Dose: 40 mg Sertraline HCl (Zoloft) 100 mg PO DAILY [facility] Last Admin: 08/20/17 09:48 Dose: 100 mg Timolol Maleate (Timoptic 0.5% Ophth Soln) 0 drop OU BID [facility] Last Admin: 08/20/17 09:47 Dose: 1 drop - Labs Labs: 08/20/17 06:45 08/20/17 06:45 PT 12.1 SECONDS (9.4-12.5) 08/18/17 14:50 INR 1.06 (0.93-1.08) 08/18/17 14:50 APTT 36.4 Seconds (25.1-36.5) 08/18/17 14:50 - Constitutional Appears: Well - Head Exam Head Exam: ATRAUMATIC, NORMAL INSPECTION, NORMOCEPHALIC - Eye Exam Eye Exam: EOMI, Normal appearance, PERRL Pupil Exam: NORMAL ACCOMODATION, PERRL - ENT Exam ENT Exam: Mucous Membranes Moist, Normal Exam - Neck Exam Neck Exam: Full ROM, Normal Inspection. absent: Lymphadenopathy - Respiratory Exam Respiratory Exam: Clear to Ausculation Bilateral, NORMAL BREATHING PATTERN - Cardiovascular Exam Cardiovascular Exam: REGULAR RHYTHM, +S1, +S2. absent: Murmur - GI/Abdominal Exam GI & Abdominal Exam: Soft, Normal Bowel Sounds. absent: Tenderness - Extremities Exam Extremities Exam: Full ROM, Normal Capillary Refill, Normal Inspection. absent : Joint Swelling, Pedal Edema Additional comments: R hip incision C/D/I. NO erythema - Back Exam Back Exam: NORMAL INSPECTION - Neurological Exam Neurological Exam: Alert, Awake, CN II-XII Intact, Normal Gait, Oriented x3 - Psychiatric Exam Psychiatric exam: Normal Affect, Normal Mood - Skin Skin Exam: Dry, Intact, Normal Color, Warm Assessment and Plan - Assessment and Plan (Free Text) Assessment: Colitis Conservative management Patient advanced to heart healthy diet ABX GI on board Calcium has stabilized - 9.5 today
[2017-08-20] MEDS: oxyCODONE 5 mg Immediate Release Tab PO PRN (10:29)
--- NOTE | 2017-08-20 10:35 | PN ---
DATE: SUBJECTIVE: Patient has no complaints of any chest pain. No shortness of breath. No headaches or dizziness. PHYSICAL EXAMINATION: VITAL SIGNS: Temperature is 98.2, pulse is 72, blood pressure 179/87, respirations 20. GENERAL: The patient is lying in bed, flat, comfortable. HEENT: No oral lesion. Anicteric sclerae. Moist mucosa. NECK: No JVD, adenopathy, or thyromegaly. CARDIOVASCULAR: S1 and S2, regular. No murmurs, rubs, or gallops. LUNGS: Clear to auscultation bilaterally. No wheeze, rales, or rhonchi. ABDOMEN: Bowel sounds are positive, soft, nontender and nondistended. EXTREMITIES: No cyanosis, clubbing or edema. LABORATORY DATA: Hemoglobin is 11.2, creatinine is 0.6. ASSESSMENT: 1. Fatigue. 2. Hypertension. 3. Dyslipidemia. 4. Gait dysfunction. 5. Lymphadenopathy in the right iliac chain. 6. Osteoarthritis. 7. Colitis. PLAN: The patient is currently comfortable. She is receiving Eliquis for anticoagulation. Patient is on aspirin, this is going to be continued. She is on oxycodone for pain. She is on Protonix daily. The patient is on Rocephin for antibiotics. She had blood cultures that are negative. The patient is on lisinopril for her hypertension. She is on Zoloft for anxiety. She is on a heart healthy diet. There are concerns for her colitis, awaiting for input from GI. There was mild abnormality seen on the CAT scan. Adolfo Walker MD
[2017-08-20 12:05] VITALS: BP 136/63; RESP 18; TEMP 98.3
--- NOTE | 2017-08-20 15:48 | CP.PCM.PN ---
<Holly Little - Last Filed: 08/20/17 15:55> Subjective - Date & Time of Evaluation Date of Evaluation: 08/20/17 Time of Evaluation: 10:00 - Subjective Subjective: GI Progress Note Dr. Dowling Pt was seen and examined at bedside. No acute or adverse events overnight as per nursing staff. Pt is tolerating intake. pt denied fever, chills, sob, chest pains, abdominal pains, nausea vomiting, diarrhea, constipation, melena, or hematochezia. Objective - Vital Signs/Intake and Output Vital Signs (last 24 hours): Temp Pulse Resp BP Pulse Ox 98.3 F 63 18 136/63 95 08/20/17 12:00 08/20/17 12:00 08/20/17 12:00 08/20/17 12:00 08/20/17 06:00 Intake and Output: 08/20/17 08/20/17 06:59 18:59 Intake Total 120 120 Output Total 0 Balance 120 120 - Medications Medications: Current Medications Acetaminophen (Tylenol 325mg Tab) 650 mg PO Q6H PRN PRN Reason: Fever >100.4 F Acetaminophen (Tylenol 325mg Tab) 650 mg PO Q6H PRN PRN Reason: Pain, Mild (1-3) Apixaban (Eliquis) 5 mg PO BID [facility] PRN Reason: Protocol Last Admin: 08/20/17 09:48 Dose: 5 mg Aspirin (Aspirin Chewable) 81 mg PO DAILY [facility] Last Admin: 08/20/17 09:48 Dose: 81 mg Clonidine HCl (Catapres) 0.1 mg PO Q4 PRN PRN Reason: BLOOD PRESSURE Last Admin: 08/20/17 06:02 Dose: 0.1 mg Metronidazole (Flagyl) 250 mg in 50 mls @ 100 mls/hr IV Q8 [facility] PRN Reason: Protocol Stop: 08/23/17 22:46 Last Admin: 08/20/17 14:40 Dose: 100 mls/hr Ceftriaxone Sodium (Rocephin 1 Gram Ivpb) 1 gm in 100 mls @ 100 mls/hr IVPB DAILY [facility] PRN Reason: Protocol Last Admin: 08/20/17 09:47 Dose: 100 mls/hr Lisinopril (Zestril) 10 mg PO BID [facility] Last Admin: 08/20/17 09:47 Dose: 10 mg Ondansetron HCl (Zofran Inj) 4 mg IVP Q6H PRN PRN Reason: Nausea/Vomiting Oxycodone HCl (Oxycodone Immediate Release Tab) 5 mg PO Q6H PRN PRN Reason: Pain, moderate (4-7) Last Admin: 08/20/17 10:29 Dose: 5 mg Oxycodone HCl (Oxycodone Immediate Release Tab) 10 mg PO Q6H PRN PRN Reason: Pain, severe (8-10) Last Admin: 08/20/17 06:49 Dose: 10 mg Pantoprazole Sodium (Protonix Ec Tab) 40 mg PO 0630 [facility] Last Admin: 08/20/17 06:49 Dose: 40 mg Sertraline HCl (Zoloft) 100 mg PO DAILY [facility] Last Admin: 08/20/17 09:48 Dose: 100 mg Timolol Maleate (Timoptic 0.5% Ophth Soln) 0 drop OU BID [facility] Last Admin: 08/20/17 09:47 Dose: 1 drop - Labs Labs: 08/20/17 06:45 08/20/17 06:45 PT 12.1 SECONDS (9.4-12.5) 08/18/17 14:50 INR 1.06 (0.93-1.08) 08/18/17 14:50 APTT 36.4 Seconds (25.1-36.5) 08/18/17 14:50 - Constitutional Appears: No Acute Distress - Head Exam Head Exam: ATRAUMATIC, NORMAL INSPECTION, NORMOCEPHALIC - Eye Exam Eye Exam: EOMI, Normal appearance, PERRL - ENT Exam ENT Exam: Mucous Membranes Moist, Normal Exam - Respiratory Exam Respiratory Exam: Clear to Ausculation Bilateral, NORMAL BREATHING PATTERN - Cardiovascular Exam Cardiovascular Exam: REGULAR RHYTHM, +S1, +S2. absent: Murmur - GI/Abdominal Exam GI & Abdominal Exam: Soft, Normal Bowel Sounds. absent: Tenderness - Extremities Exam Extremities Exam: Full ROM, Normal Capillary Refill, Normal Inspection. absent : Joint Swelling, Pedal Edema - Neurological Exam Neurological Exam: Alert, Awake, CN II-XII Intact, Oriented x3 - Psychiatric Exam Psychiatric exam: Normal Affect, Normal Mood - Skin Skin Exam: Dry, Intact, Normal Color, Warm Assessment and Plan - Assessment and Plan (Free Text) Assessment: 72 F with PMHx of HTN, CVA, glaucoma, anemia, PUD, and arthritis admitted with fatigue and abdominal pain. CT abdomen demonstrated suspected partial obstruction and colitis. Advance diet as tolerated, pt is tolerating HHD Pt is on Elqaquis s/p hip revision, continue GI ppx Elevated alk phos suspected bone etiology, fu GGTP. Fu hep panel Discussed with Dr Dowling <Billy Dowling V - Last Filed: 08/20/17 23:13> Objective - Vital Signs/Intake and Output Vital Signs (last 24 hours): Temp Pulse Resp BP Pulse Ox 98.3 F 77 18 136/63 95 08/20/17 12:00 08/20/17 14:00 08/20/17 12:00 08/20/17 12:00 08/20/17 06:00 Intake and Output: 08/20/17 08/21/17 18:59 06:59 Intake Total 120 Balance 120 - Labs Labs: 08/20/17 06:45 08/20/17 06:45 PT 12.1 SECONDS (9.4-12.5) 08/18/17 14:50 INR 1.06 (0.93-1.08) 08/18/17 14:50 APTT 36.4 Seconds (25.1-36.5) 08/18/17 14:50 Attending/Attestation - Attestation I have personally seen and examined this patient.: Yes I have fully participated in the care of the patient.: Yes I have reviewed all pertinent clinical information, including history, physical exam and plan: Yes Notes (Text): This is an addendum to GI consult report dictated by the Coffee Weigher.The patient was seen and examined earlier. Medical records, lab studies, imagings were reviewed. Last 24 hours events reviewed. Agreed with the above treatment plan as outlined in Coffee Weigher 's notes the with the addition of the following 08/20/17 23:13
[2017-08-20 16:21] VITALS: PULSE 77
[2017-08-20 21:27] LABS: HEPATITIS B SURFACE AG Negative (NEGATIVE)
[2017-08-20 21:32] LABS: HEPATITIS A IGM NEGATIVE (NEGATIVE); HEPATITIS B CORE AB NEGATIVE (NEGATIVE)
[2017-08-21] LABS: HEPATITIS C ANTIBODY REACTIVE (NEGATIVE)
== END 2017-08-20 18:37 | disposition home or self-care (01) | DRG 392 ==
LOC: ED 14:13 → ERH 20:55 → 3RSO 22:16
PROVIDERS: ADMIT Internal Medicine Nephrology; ATTEND Internal Medicine Nephrology
DX: K52.9 Noninfective gastroenteritis and colitis, unspecified (principal); D64.9 Anemia, unspecified; M41.9 Scoliosis, unspecified; I10 Essential (primary) hypertension; M15.9 Polyosteoarthritis, unspecified; K57.30 Diverticulosis of large intestine without perforation or abscess without bleeding; K29.70 Gastritis, unspecified, without bleeding; E78.5 Hyperlipidemia, unspecified; R53.1 Weakness; R59.1 Generalized enlarged lymph nodes; K44.9 Diaphragmatic hernia without obstruction or gangrene; F41.9 Anxiety disorder, unspecified; H40.9 Unspecified glaucoma; R26.2 Difficulty in walking, not elsewhere classified; Z86.73 Personal history of transient ischemic attack (TIA), and cerebral infarction without residual deficits; Z90.49 Acquired absence of other specified parts of digestive tract; Z90.710 Acquired absence of both cervix and uterus; Z87.891 Personal history of nicotine dependence

== ENCOUNTER 2018-02-15 22:31 | Inpatient (IN) | payer MEDICARE, MEDICAID ==
[2018-02-15] MEDS ORDERED: HYDROmorphone 1 mg/ml ISec IVP STA (23:17)
[2018-02-15] MEDS ORDERED: Morphine 4 mg/ml ISec IVP STA (23:24)
--- NOTE | 2018-02-15 23:48 | ED PDOC ---
Arrival/HPI - General Chief Complaint: Trauma Time Seen by Provider: 02/15/18 22:55 Historian: Patient - History of Present Illness Narrative History of Present Illness (Text): 02/15/18 23:00 Time/Duration: Other (earlier today) Symptom Onset: Sudden Activities at Onset: Light Context: Home Past Medical History - Provider Review Nursing Documentation Reviewed: Yes - Past History Past History: Non-Contributing - Infectious Disease Hx of Infectious Diseases: None - Tetanus Immunization Tetanus Immunization: Up to Date - Cardiac Hx Cardiac Disorders: Yes Hx Hypertension: Yes - Pulmonary Hx Respiratory Disorders: No - Neurological HX Cerebrovascular Accident: Yes - HEENT Hx Glaucoma: Yes - Renal Hx Renal Disorder: No - Endocrine/Metabolic Hx Endocrine Disorders: No - Hematological/Oncological Hx Anemia: Yes - Integumentary Hx Dermatological Disorder: No - Musculoskeletal/Rheumatological Hx Arthritis: Yes - Gastrointestinal Hx Gastrointestinal Disorders: Yes Hx Diverticulitis: Yes Hx Gall Bladder Disease: Yes - Genitourinary/Gynecological Hx Genitourinary Disorders: No - Psychiatric Hx Psychophysiologic Disorder: Yes Hx Anxiety: Yes Hx Depression: Yes Hx Substance Use: No - Past Surgical History Past Surgical History: Non-Contributing - Surgical History Hx Appendectomy: Yes Hx Cataract Extraction: Yes Hx Cholecystectomy: Yes Hx Hysterectomy: Yes Hx Orthopedic Surgery: Yes (R hip x3) Hx Tonsillectomy: Yes Other/Comment: right hip surgery 07/2017, 04/2017, 08/2015 - Anesthesia Hx Anesthesia: Yes Hx Anesthesia Reactions: No Hx Malignant Hyperthermia: No - Suicidal Assessment Feels Threatened In Home Enviroment: No Family/Social History - Physician Review Nursing Documentation Reviewed: Yes Family/Social History: Unknown Family HX Smoking Status: Former Smoker Hx Alcohol Use: No Hx Substance Use: No Hx Substance Use Treatment: No Allergies/Home Meds Allergies/Adverse Reactions: Allergies atorvastatin calcium [From Lipitor] Allergy (Verified 08/18/17 14:27) FATIGUE clopidogrel bisulfate [From Plavix] Allergy (Verified 08/18/17 14:27) SHORTNESS OF BREATH nalbuphine HCl [From Nubain] Allergy (Verified 08/18/17 14:27) VOMITING Home Medications: Home Meds Medication Instructions Recorded Confirmed Omeprazole [Prilosec] 20 mg PO BID 04/19/15 08/20/17 Apixaban [Eliquis] 5 mg PO BID 08/18/17 08/20/17 Aspirin [Aspirin Chewable] 81 mg PO DAILY 08/18/17 08/20/17 Enalapril Maleate [Vasotec] 10 mg PO BID 08/18/17 08/20/17 Rosuvastatin Calcium [Crestor] 10 mg PO DAILY 08/18/17 08/18/17 Review of Systems - Physician Review All systems were reviewed & negative as marked: Yes - Review of Systems Constitutional: absent: Fevers, Night Sweats Respiratory: absent: SOB Cardiovascular: Chest Pain (+left sided chest pain) Gastrointestinal: absent: Diarrhea, Nausea, Vomiting Genitourinary Female: absent: Urine Output Changes, Other (no GI bleeding) Musculoskeletal: absent: Back Pain, Neck Pain Neurological: absent: Headache, Dizziness, Focal Weakness, Other (No loss of consciousness) Physical Exam Vital Signs Reviewed: Yes Vital Signs Temp Pulse Resp BP Pulse Ox 02/15/18 22:41 98.1 F 78 18 197/107 H 96 Temperature: Afebrile Blood Pressure: Hypertensive Pulse: Regular Respiratory Rate: Normal Appearance: Positive for: Well-Appearing, Non-Toxic, Comfortable Pain Distress: None Mental Status: Positive for: Alert and Oriented X 3 - Systems Exam Head: Present: Atraumatic, Normocephalic Pupils: Present: PERRL Extroacular Muscles: Present: EOMI Conjunctiva: Present: Normal Mouth: Present: Moist Mucous Membranes Neck: Present: Normal Range of Motion Respiratory/Chest: Present: Tender to Palpation (+left upper chest, no ecchymosis). No: Wheezes, Decreased Breath Sounds, Rales, Rhonchi, Tachypneic Cardiovascular: No: Regular Rate and Rhythm Abdomen: No: Tenderness, Distention, Peritoneal Signs Back: Present: Normal Inspection Upper Extremity: Present: Normal Inspection. No: Cyanosis, Edema Lower Extremity: Present: Normal Inspection. No: Edema Neurological: Present: GCS=15, CN II-XII Intact, Speech Normal Skin: Present: Warm, Dry, Normal Color. No: Rashes Psychiatric: Present: Other Medical Decision Making ED Course and Treatment: 02/15/18 23:03 Impression: 72 year old female presenting to the emergency department complaining of left chest pain. Plan: -- HEAD CT without contrast -- EKG -- CMP -- Troponin I -- CBC -- Morphine -- Zofran -- Urine culture -- XRay of Left Ribs & PA Chest -- Urinalysis -- Reassess and disposition Prior Visits: Notes and results from previous visits were reviewed. Progress Notes: - RAD Interpretation Radiology Orders: 02/15/18 23:12 HEAD W/O CONTRAST [CT] Stat 02/15/18 23:17 RIBS LEFT & PA CHEST [RAD] Stat - Medication Orders Current Medication Orders: Discontinued Medications Morphine Sulfate (Morphine) 4 mg IVP STAT STA Stop: 02/15/18 23:25 Last Admin: 02/15/18 23:40 Dose: 4 mg MAR Pain Assessment Document 02/15/18 23:40 RD (Rec: 02/15/18 23:42 RD [id number]) Pain Reassessment Is this a pain reassessment? No Sleep Is patient sleeping during reassessment? No Presence of Pain Presence of Pain Yes Location Left, Right or Bilateral Left Pain Location Body Site Breast Arm Description Description Constant Pain Behavior Moaning Irritability Aggravating Factors ADL's IVP Administration Document 02/15/18 23:40 RD (Rec: 02/15/18 23:42 RD [id number]) Charges for Administration # of IVP Administrations 1 Morphine Sulfate (Morphine) 4 mg IVP STAT STA Stop: 02/16/18 00:14 Ondansetron HCl (Zofran Inj) 4 mg IVP STAT STA Stop: 02/15/18 23:18 Last Admin: 02/15/18 23:35 Dose: 4 mg IVP Administration Document 02/15/18 23:35 RD (Rec: 02/15/18 23:42 RD [id number]) Charges for Administration # of IVP Administrations 1 - Scribe Statement The provider has reviewed the documentation as recorded by the Anahy Vick All medical record entries made by the Scribe were at my direction and personally dictated by me. I have reviewed the chart and agree that the record accurately reflects my personal performance of the history, physical exam, medical decision making, and the department course for this patient. I have also personally directed, reviewed, and agree with the discharge instructions and disposition. Disposition/Present on Arrival - Present on Arrival History of DVT/PE: No History of Uncontrolled Diabetes: No Urinary Catheter: No History of Decub. Ulcer: No History Surgical Site Infection Following: None - Disposition Forms: [employer] ([place])
[2018-02-16] MEDS ORDERED: Morphine 4 mg/ml ISec IVP STA (00:13)
[2018-02-16 00:34] LABS: ALB/GLOB RATIO 1.4 (1.1-1.8); ALBUMIN 4.1 g/dL (3.0-4.8); ALT/SGPT 32 U/L (7-56); AST/SGOT 42 U/L (14-36); BLOOD UREA NITROGEN 23 mg/dL (7-21); CALCIUM 9.7 mg/dL (8.4-10.5); GFR NON-AFRICAN AMERICAN > 60
[2018-02-16 00:44] LABS: TROPONIN I < 0.01 ng/mL
[2018-02-16 00:47] LABS: BASO # 0.02 K/mm3 (0.0-2.0); BASO % 0.2 % (0.0-3.0); EOS # 0.5 (0.0-0.7); EOS % 5.1 % (1.5-5.0); GRAN # 5.69 (1.4-6.5); GRAN % 58.7 % (50.0-68.0); HEMOGLOBIN 13.9 g/dL (12.0-16.0); LYMPH # 2.7 (1.2-3.4); MEAN CELL VOLUME 88.3 fl (80.0-105.0); MEAN PLATELET VOLUME 10.8 fl (7.0-11.0); MONO # 0.8 (0.1-0.6); RBC 4.63 10^6/uL (3.5-6.1); RED CELL DISTRIBUTION WIDTH 13.8 % (11.5-14.5); WHITE BLOOD COUNT 9.7 10^3/ul (4.5-11.0)
--- NOTE | 2018-02-16 00:52 | ED PDOC ---
Arrival/HPI - General Historian: Patient - History of Present Illness Time/Duration: Other (earlier today) Symptom Onset: Sudden Activities at Onset: Light Context: Home <Claire Bhandari PA-C - Last Filed: 02/16/18 02:13> <Dariusz Broussard - Last Filed: 02/16/18 03:16> - General Chief Complaint: Trauma Time Seen by Provider: 02/15/18 22:55 - History of Present Illness Narrative History of Present Illness (Text): 02/15/18 23:00 A 72 year old, whose past medical history includes 3 right hip surgeries, presents to the emergency department complaining of left chest pain since earlier today. Patient reports she was going down the stairs when she lost her balance striking the left of her chest on the edge of wall. Patient reports pain exacerbates upon breathing and does not recall hitting her head. Patient notes frequent falls in past few months and recalls a near fall two weeks along with a fall earlier today prior to episode. Patient states she maybe falling frequently due to her past hip surgeries that made her legs uneven. Patient notes her last hip surgery was in April 2017. Patient denies any dizziness, headaches or chest pain prior to falling. Patient denies any fever, chills, chest pain, shortness of breath, abdominal pain, nausea, vomiting, diarrhea, urinary symptoms, back pain, neck pain, headache, dizziness, or any other complaints. (Claire Bhandari PA-C) Past Medical History - Provider Review Nursing Documentation Reviewed: Yes - Past History Past History: Non-Contributing - Infectious Disease Hx of Infectious Diseases: None - Tetanus Immunization Tetanus Immunization: Up to Date - Cardiac Hx Cardiac Disorders: Yes Hx Hypertension: Yes - Pulmonary Hx Respiratory Disorders: No - Neurological HX Cerebrovascular Accident: Yes - HEENT Hx Glaucoma: Yes - Renal Hx Renal Disorder: No - Endocrine/Metabolic Hx Endocrine Disorders: No - Hematological/Oncological Hx Anemia: Yes - Integumentary Hx Dermatological Disorder: No - Musculoskeletal/Rheumatological Hx Arthritis: Yes - Gastrointestinal Hx Gastrointestinal Disorders: Yes Hx Diverticulitis: Yes Hx Gall Bladder Disease: Yes - Genitourinary/Gynecological Hx Genitourinary Disorders: No - Psychiatric Hx Psychophysiologic Disorder: Yes Hx Anxiety: Yes Hx Depression: Yes Hx Substance Use: No - Past Surgical History Past Surgical History: Non-Contributing - Surgical History Hx Appendectomy: Yes Hx Cataract Extraction: Yes Hx Cholecystectomy: Yes Hx Hysterectomy: Yes Hx Orthopedic Surgery: Yes (R hip x3) Hx Tonsillectomy: Yes Other/Comment: right hip surgery 07/2017, 04/2017, 08/2015 - Anesthesia Hx Anesthesia: Yes Hx Anesthesia Reactions: No Hx Malignant Hyperthermia: No - Suicidal Assessment Feels Threatened In Home Enviroment: No <Claire Bhandari PA-C - Last Filed: 02/16/18 02:13> Family/Social History - Physician Review Nursing Documentation Reviewed: Yes Family/Social History: Unknown Family HX Smoking Status: Former Smoker Hx Alcohol Use: No Hx Substance Use: No Hx Substance Use Treatment: No <Claire Bhandari PA-C - Last Filed: 02/16/18 02:13> Allergies/Home Meds <Claire Bhandari PA-C - Last Filed: 02/16/18 02:13> <Dariusz Broussard - Last Filed: 02/16/18 03:16> Allergies/Adverse Reactions: Allergies atorvastatin calcium [From Lipitor] Allergy (Verified 08/18/17 14:27) FATIGUE clopidogrel bisulfate [From Plavix] Allergy (Verified 08/18/17 14:27) SHORTNESS OF BREATH nalbuphine HCl [From Nubain] Allergy (Verified 08/18/17 14:27) VOMITING Home Medications: Home Meds Medication Instructions Recorded Confirmed Omeprazole [Prilosec] 20 mg PO BID 04/19/15 02/16/18 Apixaban [Eliquis] 5 mg PO BID 08/18/17 02/16/18 Aspirin [Aspirin Chewable] 81 mg PO DAILY 08/18/17 02/16/18 Enalapril Maleate [Vasotec] 10 mg PO BID 08/18/17 02/16/18 Rosuvastatin Calcium [Crestor] 10 mg PO DAILY 08/18/17 02/16/18 Review of Systems - Physician Review All systems were reviewed & negative as marked: Yes - Review of Systems Constitutional: absent: Fevers Respiratory: absent: SOB Cardiovascular: Chest Pain (+left sided chest pain) Gastrointestinal: absent: Diarrhea, Nausea, Vomiting Genitourinary Female: Urine Output Changes (no GI bleedind) Musculoskeletal: absent: Back Pain, Neck Pain Neurological: absent: Headache, Dizziness, Focal Weakness, Other (no loss of consciousness) <Claire Bhandari PA-C - Last Filed: 02/16/18 02:13> Physical Exam Vital Signs Reviewed: Yes Temperature: Afebrile Blood Pressure: Hypertensive Pulse: Regular Respiratory Rate: Normal Appearance: Positive for: Well-Appearing, Non-Toxic, Comfortable Pain Distress: None Mental Status: Positive for: Alert and Oriented X 3 - Systems Exam Head: Present: Atraumatic, Normocephalic Pupils: Present: PERRL Extroacular Muscles: Present: EOMI Conjunctiva: Present: Normal Mouth: Present: Moist Mucous Membranes Neck: Present: Normal Range of Motion Respiratory/Chest: Present: Clear to Auscultation, Good Air Exchange, Tender to Palpation (+left upper chest, no ecchymosis). No: Respiratory Distress, Accessory Muscle Use, Wheezes, Decreased Breath Sounds, Rales, Retracting, Rhonchi, Tachypneic Cardiovascular: Present: Regular Rate and Rhythm, Normal S1, S2. No: Murmurs Abdomen: No: Tenderness, Distention, Peritoneal Signs Back: Present: Normal Inspection Upper Extremity: Present: Normal Inspection. No: Cyanosis, Edema Lower Extremity: Present: Normal Inspection. No: Edema Neurological: Present: GCS=15, CN II-XII Intact, Speech Normal Skin: Present: Warm, Dry, Normal Color. No: Rashes Psychiatric: Present: Alert, Oriented x 3, Normal Insight, Normal Concentration <Claire Bhandari PA-C - Last Filed: 02/16/18 02:13> Vital Signs Temp Pulse Resp BP Pulse Ox 02/16/18 02:11 97.9 F 75 18 156/91 H 96 02/15/18 22:41 98.1 F 78 18 197/107 H 96 Medical Decision Making <Claire Bhandari PA-C - Last Filed: 02/16/18 02:13> <Dariusz Broussard - Last Filed: 02/16/18 03:16> ED Course and Treatment: 02/15/18 23:03 Impression: 72 year old female presenting to the emergency department complaining of left chest pain. Plan: -- HEAD CT without contrast -- EKG -- CMP -- Troponin I -- CBC -- Morphine -- Zofran -- Urine culture -- XRay of Left Ribs & PA Chest -- Urinalysis -- Reassess and disposition Prior Visits: Notes and results from previous visits were reviewed. Progress Notes: 02/16/18 00:14 Labs reviewed : trop (-), rest of labs wnl. XR and CT still pending. Patient still c/o pain despite initial dose of morphine. Patient given another 4 mg IV of morphine. 02/16/18 01:37 CT head w/o contrast : FINDINGS: Brain: Volume loss. Chronic small vessel white matter ischemic change. No acute hemorrhage. No acute infarct. Coarse dural calcification along frontal falx. Ventricles: No hydrocephalus. Bones/joints: No acute fracture. Soft tissues: Unremarkable. Vasculature: Calcification in wall of distal internal carotid arteries. Sinuses: No acute sinusitis. Mastoid air cells: Unremarkable as visualized. IMPRESSION: No acute intracranial findings. Nonacute findings as above. Dictated and Authenticated by: Harley Esposito MD 02/16/2018 1:29 AM Eastern Time ([place] & [place]) 02/16/18 02:06 XR L ribs : +fracture of 7th rib, ?10th rib fracture, no pneumothorax, as read by PA. Will send XRs to Vr. XR R hand : no fracture, no dislocation, +djd, as read by PA. (Thony NOONAN, Claire Ash) 02/16/18 02:28 EKG: Ordered, reviewed, and independently interpreted the EKG. Rate : 72 BPM Rhythm : NSR Interpretation : No ST-segment elevations or depressions. 02/16/18 02:[address] Walker for consultation. Procedure: XR Left Ribs and AP Chest, 3 or More Views Impression: No acute fracture. Dictator: Miranda Rodriguez MD Procedure: CT Head Without Intravenous Contrast Impression: No acute intracranial findings. Nonacute findings as above. Dictator: Harley Cervantes MD Procedure: XR Right Hand Complete, 3 or More Views Impression: No acute fracture. No dislocation. Degenerative changes in the proximal and distal interphalangeal joints. Dictator: Miranda Rodriguez MD 02/16/18 02:55 Case discussed with (on for juan), who is aware the patient is in the emergency room and accepts patient under her name for reccurent maura (Dariusz Broussard) - Lab Interpretations Lab Results: 02/15/18 23:39 02/15/18 23:39 Lab Results 02/15/18 23:39: Sodium 144, Potassium 4.2, Chloride 104, Carbon Dioxide 30, Anion Gap 14, BUN 23 H, Creatinine 0.8, Est GFR ( Amer) > 60, Est GFR ( Non-Af Amer) > 60, Random Glucose 106, Calcium 9.7, Total Bilirubin 0.2, AST 42 H D, ALT 32, Alkaline Phosphatase 185 H D, Troponin I < 0.01, Total Protein 7.0 , Albumin 4.1, Globulin 3.0, Albumin/Globulin Ratio 1.4 02/15/18 23:39: WBC 9.7 D, RBC 4.63, Hgb 13.9 D, Hct 40.9, MCV 88.3 D, MCH 30.0, MCHC 34.0, RDW 13.8, Plt Count 266, MPV 10.8, Gran % 58.7, Lymph % (Auto) 28.0, Leon % (Auto) 8.0 H, Eos % (Auto) 5.1 H, Baso % (Auto) 0.2, Gran # 5.69, Lymph # (Auto) 2.7, Leon # (Auto) 0.8 H, Eos # (Auto) 0.5, Baso # (Auto) 0.02 - RAD Interpretation Radiology Orders: 02/15/18 23:12 HEAD W/O CONTRAST [CT] Stat 02/15/18 23:17 RIBS LEFT & PA CHEST [RAD] Stat 02/16/18 01:55 HAND RIGHT 3 VIEWS [RAD] Stat - Medication Orders Current Medication Orders: Discontinued Medications Ibuprofen (Motrin Tab) 600 mg PO STAT STA Stop: 02/16/18 02:44 Last Admin: 02/16/18 02:45 Dose: 600 mg MAR Pain/Vitals Document 02/16/18 02:45 RD (Rec: 02/16/18 02:45 RD [id number]) Pain Reassessment Is This A Pain ReAssessment? No Sleep Is patient sleeping during reassessment? No Presence of Pain Presence of Pain Yes Morphine Sulfate (Morphine) 4 mg IVP STAT STA Stop: 02/15/18 23:25 Last Admin: 02/15/18 23:40 Dose: 4 mg MAR Pain Assessment Document 02/15/18 23:40 RD (Rec: 02/15/18 23:42 RD [id number]) Pain Reassessment Is this a pain reassessment? No Sleep Is patient sleeping during reassessment? No Presence of Pain Presence of Pain Yes Location Left, Right or Bilateral Left Pain Location Body Site Breast Arm Description Description Constant Pain Behavior Moaning Irritability Aggravating Factors ADL's IVP Administration Document 02/15/18 23:40 RD (Rec: 02/15/18 23:42 RD [id number]) Charges for Administration # of IVP Administrations 1 Morphine Sulfate (Morphine) 4 mg IVP STAT STA Stop: 02/16/18 00:14 Last Admin: 02/16/18 00:38 Dose: 4 mg MAR Pain Assessment Document 02/16/18 00:38 RD (Rec: 02/16/18 00:38 RD [id number]) Pain Reassessment Is this a pain reassessment? No Sleep Is patient sleeping during reassessment? No Presence of Pain Presence of Pain Yes IVP Administration Document 02/16/18 00:38 RD (Rec: 02/16/18 00:38 RD [id number]) Charges for Administration # of IVP Administrations 1 Ondansetron HCl (Zofran Inj) 4 mg IVP STAT STA Stop: 02/15/18 23:18 Last Admin: 02/15/18 23:35 Dose: 4 mg IVP Administration Document 02/15/18 23:35 RD (Rec: 02/15/18 23:42 RD [id number]) Charges for Administration # of IVP Administrations 1 - Scribe Statement The provider has reviewed the documentation as recorded by the Scribe <Claire Bhandari PA-C - Last Filed: 02/16/18 02:13> <Dariusz Broussard - Last Filed: 02/16/18 03:16> - Scribe Statement Hayde Vick All medical record entries made by the Scribe were at my direction and personally dictated by me. I have reviewed the chart and agree that the record accurately reflects my personal performance of the history, physical exam, medical decision making, and the department course for this patient. I have also personally directed, reviewed, and agree with the discharge instructions and disposition. (Claire Bhandari PA-C) Disposition/Present on Arrival - Present on Arrival History of DVT/PE: No History of Uncontrolled Diabetes: No Urinary Catheter: No History of Decub. Ulcer: No History Surgical Site Infection Following: None <Claire Bhandari PA-C - Last Filed: 02/16/18 02:13> - Present on Arrival Any Indicators Present on Arrival: No - Disposition Have Diagnosis and Disposition been Completed?: Yes Disposition Time: 03:16 <Dariusz Broussard - Last Filed: 02/16/18 03:16> - Disposition Diagnosis: Fall Disposition: HOME/ ROUTINE Condition: GOOD
[2018-02-16] MEDS ORDERED: Morphine 4 mg/ml ISec IM STA (01:05)
[2018-02-16] MEDS ORDERED: Oxycodone/Acetaminophen 5/325 mg Tab PO STA (04:36)
[2018-02-16 06:42] VITALS: BMI 32.7
[2018-02-16] MEDS: Morphine 4 mg/ml ISec IVP PRN ×3 (09:24→20:52)
--- NOTE | 2018-02-16 09:38 | CT ---
Date of service: 02/16/2018 PROCEDURE: CT HEAD WITHOUT CONTRAST. HISTORY: fall COMPARISON: Noncontrast head CT performed 08/18/17 TECHNIQUE: Axial computed tomography images were obtained through the head/brain without intravenous contrast. Radiation dose: Total exam DLP = 895.69 mGy-cm. This CT exam was performed using one or more of the following dose reduction techniques: Automated exposure control, adjustment of the mA and/or kV according to patient size, and/or use of iterative reconstruction technique. FINDINGS: HEMORRHAGE: No intracranial hemorrhage. BRAIN: Diffuse atrophy with prominence of the ventricles and sulci noted. No mass effect or edema. Intracranial atherosclerosis. Coarse dural calcifications along the frontal falx. Scattered periventricular and subcortical white matter hypodensities, which are nonspecific, but often seen with chronic microvascular ischemic disease. Please note that MRI with diffusion imaging is more sensitive in the detection of acute ischemic event. VENTRICLES: No hydrocephalus. CALVARIUM: Unremarkable. PARANASAL SINUSES: Unremarkable as visualized. No significant inflammatory changes. MASTOID AIR CELLS: Unremarkable as visualized. No inflammatory changes. OTHER FINDINGS: None. IMPRESSION: No acute intracranial pathology identified. Findings as above. Preliminary impression was provided by virtual radiologic.
--- NOTE | 2018-02-16 10:47 | RAD ---
Date of service: 02/16/2018 PROCEDURE: Radiographs of the Chest and Left Ribs. HISTORY: trauma COMPARISON: Chest x-ray performed 08/18/17 TECHNIQUE: Frontal radiograph of the chest and multiple oblique radiographs of the left ribs were obtained. FINDINGS: LEFT RIBS: No appreciable displaced rib fracture. LUNGS: Mild subsegmental bibasilar atelectasis. No focal consolidation. Please note that chest x-ray has limited sensitivity for the detection of pulmonary masses. PLEURA: No significant pleural effusion. No definite pneumothorax. CARDIOVASCULAR: Heart size appears within normal limits. Ectatic aorta. Atherosclerotic calcifications. OTHER FINDINGS: None. IMPRESSION: No appreciable displaced left rib fracture.
--- NOTE | 2018-02-16 10:49 | RAD ---
PROCEDURE: Right Hand Radiographs. HISTORY: pain COMPARISON: None available. FINDINGS: BONES: No acute displaced fracture. Degenerative changes. JOINTS: No dislocation. Joint space narrowing most prominent at the DIP and MIP. SOFT TISSUES: Mild soft tissue swelling. No evidence of radiopaque foreign body. OTHER FINDINGS: Vascular calcifications. IMPRESSION: Degenerative changes. No acute displaced fracture, dislocation, or significant joint effusion identified. If symptoms persist, or if there is continued clinical concern, x-ray follow-up in 7-10 days should be considered.
[2018-02-17] MEDS: Oxycodone/Acetaminophen 5/325 mg Tab PO PRN ×2 (00:53→23:28)
[2018-02-17] MEDS: Morphine 4 mg/ml ISec IVP PRN ×3 (02:55→18:24)
--- NOTE | 2018-02-17 03:54 | HP ---
Copied To: Jude Chamberlain MD Attending MD: Jude Chamberlain MD HISTORY OF PRESENT ILLNESS: The patient is 72 years old female who came to emergency room because of severe left-sided chest pain. The patient states that her grandkids who were came over to visit and their duffle bags were closed to her stair when she was coming down, and when she walked around somehow she lost balance and fell, got hit on the left side of the chest with edge of the wall, initially she did not feel much pain, but upon coughing, laughing and sneezing, she had excruciating pain and was having difficulty taking deep breath. The patient does admit to have falling couple of times. She had fall back in 04/2017 and at that point she had hip fracture and had open reduction and internal fixation. PAST MEDICAL HISTORY: She has significant past medical history of: 1. Hypertension. 2. Generalized osteoarthritis. 3. History of CVA in the past. 4. Chronic anemia. PAST SURGICAL HISTORY: Significant for: 1. Right hip replacement. 2. Status post appendectomy. 3. Cholecystectomy. 4. Hysterectomy. SOCIAL HISTORY: Denies smoking or drinking. She used to be a smoker who quit 25 years ago and she used to drink socially. ALLERGIES: SHE IS ALLERGIC TO LIPITOR, PLAVIX AND NALBUPHINE. MEDICATIONS AT HOME: She is on: 1. Timolol eyedrops. 2. Zoloft 100 mg daily. 3. Omeprazole 20 mg daily. 4. Percocet as needed. REVIEW OF SYSTEMS: Significant for left-sided chest pain. PHYSICAL EXAMINATION GENERAL: She is awake, alert, oriented, communicative. VITAL SIGNS: She is afebrile, pulse 60, respirations 20, blood pressure 132/72. LUNGS: Bilateral fair airflow. No rhonchi or crackle. HEART: S1 and S2 audible. ABDOMEN: Soft, obese, nontender. No rebound, no guarding. MUSCULOSKELETAL: She has palpable left-sided chest discomfort. NEUROLOGICAL: She is awake, alert, oriented, communicative. LABORATORY EXAM: WBC 9.7, hemoglobin 13, hematocrit 40.9 and platelet 266. Chemistry: Sodium 144, potassium 4.2, chloride 104, CO2 30, BUN 23, creatinine 0.8, blood sugar 106. LFTs are within normal limits. AST 42, ALT 32, alk phos 185. X-ray of the hand shows no acute displaced fracture or degenerative changes. X-ray of the ribs shows left rib fracture, but no displacement. ASSESSMENT: 1. Status post fall. 2. Left rib fracture. 3. Hypertension. 4. Hyperlipidemia. 5. History of glaucoma. 6. Deconditioning, difficulty walking. PLAN: We will continue patient on current medications, give analgesics. She is on aspirin 81 daily, we will continue that, give Motrin as needed. She is on Percocet as needed. I will give her laxatives, start her on lisinopril, start her on Zoloft. We will follow up patient in . Jude Chamberlain MD
--- NOTE | 2018-02-17 05:14 | CARD ---
APPROVED REPORT Date of service: 02/16/2018 EKG Measurement Heart [id number] <Conclusion> Normal sinus rhythm Normal ECG
[2018-02-17] MEDS: Lidocaine 5% Patch TD SCH (09:52)
[2018-02-17] MEDS: Non Formulary Medication (Rosuvastatin Calcium [Crestor] 10 MG) PO SCH (09:52)
--- NOTE | 2018-02-17 16:49 | RAD ---
Date of service: Fall/back pain Thoracic spine radiographs Lumbar spine radiographs Comparison: CT abdomen and pelvis with IV contrast performed 08/18/17, chest x-ray performed 02/16/18 Findings: Diffuse osseous demineralization. Curvature of the lumbar spine convex to the left. Multilevel degenerative changes of the spine including intervertebral disc space narrowing, anterior osteophyte formation, endplate sclerosis, and facet hypertrophy. Dense atherosclerotic calcification of the abdominal aorta. Right hip arthroplasty, partially imaged. Right upper quadrant surgical clips. Dense atherosclerotic calcifications of an ectatic aorta. Cardiomegaly. Impression: Diffuse osseous demineralization. Multilevel degenerative changes.
--- NOTE | 2018-02-17 20:21 | PN ---
Copied To: Jude Chamberlain MD Attending MD: Jude Chamberlain MD DATE: 02/17/2018 SUBJECTIVE: The patient is 72 years old, seen and examined, lying in bed, seems to be comfortable. Complained of left-sided chest pain where she has rib fracture, otherwise doing okay. PHYSICAL EXAMINATION: VITAL SIGNS: She is afebrile, pulse 74, respirations 18, blood pressure 129/68. LUNGS: Bilateral fair airflow. No rhonchi or crackle. HEART: S1 and S2 audible. ABDOMEN: Soft. Nontender. No rebound. No guarding. NEUROLOGIC: The patient is awake, alert, oriented, and communicative. ASSESSMENT: 1. Status post fall. 2. Left rib fracture, nondisplaced. 3. Degenerative disk disease. 4. History of glaucoma. 5. History of depression. 6. Hyperlipidemia. 7. Hypertension. PLAN: Currently, the patient seems to be getting better. I will order for carotid Doppler and x-ray of thoracic and lumbar spine. Encourage physical therapy. The patient remains stable, possible discharge in a.m., she does want to go to [facility]. Jude Chamberlain MD
[2018-02-18] MEDS: Morphine 4 mg/ml ISec IVP PRN ×4 (00:45→18:51)
[2018-02-18] MEDS: Lidocaine 5% Patch TD SCH (10:34)
[2018-02-18] MEDS: oxyCODONE 5 mg Immediate Release Tab PO PRN ×2 (10:36→23:45)
[2018-02-18] MEDS: Non Formulary Medication (Rosuvastatin Calcium [Crestor] 10 MG) PO SCH (10:38)
--- NOTE | 2018-02-18 17:19 | PN ---
Copied To: Jude Chamberlain MD Attending MD: Jude Chamberlain MD DATE: 02/18/2018 SUBJECTIVE: The patient is 72 years old, complaining of left-sided chest pain, has difficulty moving around because of the pain, complaining of pain upon sneezing, coughing,and having a deep breath. According to nurse, he is unstable to walk, so unsafe discharge, awaiting TCU evaluation. PHYSICAL EXAMINATION: VITAL SIGNS: The patient is afebrile, pulse 60, respirations 18, blood pressure 139/93. LUNGS: Bilateral fair airflow. No rhonchi or crackle. HEART: S1 and S2 audible. ABDOMEN: Soft. Nontender. No rebound. No guarding. NEUROLOGIC: The patient is awake, alert, oriented, and communicative. ASSESSMENT: 1. Left-sided chest pain. 2. Status post fall with nondisplaced left rib fracture. 3. Diffuse multilevel degenerative disk disease. 4. Depression. 5. Hyperlipidemia. 6. Hypertension. PLAN: We will continue the patient on current regimen. She is on analgesic. She is on morphine for severe pain and Percocet for [id number] pain. So, the patient will be evaluated for TCU. If accepted, can be transferred to TCU. Jude Chamberlain MD
--- NOTE | 2018-02-18 17:33 | US ---
PROCEDURE: Bilateral carotid artery duplex ultrasound HISTORY: Carotid stenosis PHYSICIAN(S): Jarad Davenport MD. TECHNIQUE: Duplex sonography and color-flow Doppler were used to evaluate the carotid bifurcations and limited segments of the vertebral arteries bilaterally. FINDINGS: There is moderate diffuse smooth heterogeneous plaque noted at the carotid bifurcations bilaterally. The peak systolic velocity in the proximal right internal carotid artery is 79 cm/sec. This corresponds to a 20 to 39% proximal right ICA stenosis. Normal systolic velocities are noted in the proximal right external carotid artery. There is antegrade flow in the right vertebral artery. The peak systolic velocity in the proximal left internal carotid artery is 153 cm/sec. This corresponds to a 60-79 percent proximal left ICA stenosis. Normal systolic velocities are noted in the proximal left external carotid artery. There is antegrade flow in the left vertebral artery. IMPRESSION: 1. 60-79 percent proximal left ICA stenosis 2. 20-39 percent proximal right ICA stenosis 3. Antegrade flow in both vertebral arteries
[2018-02-19] MEDS: Morphine 4 mg/ml ISec IVP PRN ×4 (01:26→21:51)
[2018-02-19] MEDS: Lidocaine 5% Patch TD SCH (10:16)
[2018-02-19] MEDS: Non Formulary Medication (Rosuvastatin Calcium [Crestor] 10 MG) PO SCH (10:18)
[2018-02-19] MEDS: POLYETHYLENE GLYCOL 3350 17 GM/Dose PACKET PO SCH (11:23)
--- NOTE | 2018-02-19 11:42 | CP.PCM.PN ---
Subjective - Date & Time of Evaluation Date of Evaluation: 02/19/18 Time of Evaluation: 11:38 - Subjective Subjective: Patient seen and examined at bedside. Patient admits to left sided chest pain, worse with movement and inspiration. Patient has been using incentive spirometer. Denies shortness of breath, nausea, vomiting, diarrhea, fever, chills, hemoptysis. Objective - Vital Signs/Intake and Output Vital Signs (last 24 hours): Temp Pulse Resp BP Pulse Ox 98 F 74 18 137/74 95 02/19/18 08:18 02/19/18 10:17 02/19/18 08:18 02/19/18 10:17 02/19/18 08:18 Intake and Output: 02/19/18 02/19/18 06:59 18:59 Intake Total 620 120 Balance 620 120 - Medications Medications: Current Medications Apixaban (Eliquis) 5 mg PO BID [facility] PRN Reason: Protocol Last Admin: 02/19/18 10:17 Dose: 5 mg Aspirin (Aspirin Chewable) 81 mg PO DAILY [facility] Last Admin: 02/19/18 10:17 Dose: 81 mg Lidocaine (Lidoderm) 1 ea TD DAILY [facility] Last Admin: 02/19/18 10:16 Dose: 1 ea Lisinopril (Zestril) 10 mg PO BID [facility] Last Admin: 02/19/18 10:17 Dose: 10 mg Meloxicam (Mobic) 15 mg PO DAILY [facility] Last Admin: 02/19/18 10:17 Dose: 15 mg Morphine Sulfate (Morphine) 4 mg IVP Q6 PRN PRN Reason: Pain, severe (8-10) Last Admin: 02/19/18 09:00 Dose: 4 mg Non-Formulary Medication (Rosuvastatin Calcium [Crestor]) 10 mg PO DAILY [facility] Last Admin: 02/19/18 10:18 Dose: Not Given Oxycodone HCl (Oxycodone Immediate Release Tab) 5 mg PO Q6H PRN PRN Reason: Pain, moderate (4-7) Last Admin: 02/18/18 23:45 Dose: 5 mg Polyethylene Glycol (Miralax) 17 gm PO DAILY [facility] Last Admin: 02/19/18 11:23 Dose: 17 gm Sertraline HCl (Zoloft) 100 mg PO DAILY [facility] Last Admin: 02/19/18 10:17 Dose: 100 mg Timolol Maleate (Timoptic 0.5% Ophth Soln) 1 drop OU BID [facility] Last Admin: 02/19/18 10:15 Dose: 1 drop - Constitutional Appears: Non-toxic, No Acute Distress - Head Exam Head Exam: ATRAUMATIC, NORMAL INSPECTION, NORMOCEPHALIC - ENT Exam ENT Exam: Mucous Membranes Moist - Respiratory Exam Respiratory Exam: Clear to Ausculation Bilateral, NORMAL BREATHING PATTERN - Cardiovascular Exam Cardiovascular Exam: RRR, +S1, +S2 - GI/Abdominal Exam GI & Abdominal Exam: Soft, Normal Bowel Sounds - Extremities Exam Extremities Exam: Normal Inspection. absent: Pedal Edema - Neurological Exam Neurological Exam: Alert, Awake, CN II-XII Intact, Oriented x3 - Psychiatric Exam Psychiatric exam: Normal Affect, Normal Mood - Skin Skin Exam: Intact, Normal Color, Warm Assessment and Plan - Assessment and Plan (Free Text) Plan: 1. Left nondisplaced rib fracture 2. S/p fall 3. Diffuse degenerative disc disease 4. Depression 5. Hyperlipidemia 6. Hypertension Patient encouraged to use incentive spirometer. Patient will continue with pain medication regimen for rib pain. Patient will be evaluated for TCU. We will continue with current medical regimen. Patient will continue to work with physical therapy. Karen, PGY-3
[2018-02-19] MEDS: oxyCODONE 5 mg Immediate Release Tab PO PRN (19:51)
[2018-02-20] MEDS: Morphine 4 mg/ml ISec IVP PRN ×4 (05:02→23:04)
--- NOTE | 2018-02-20 10:46 | CP.PCM.PN ---
<Gary Jones - Last Filed: 02/20/18 10:43> Subjective - Date & Time of Evaluation Date of Evaluation: 02/20/18 Time of Evaluation: 10:43 - Subjective Subjective: Patient seen and examined at bedside. Patient admits to improvement in chest pain. She admits to using incentive spirometer. Denies shortness of breath, nausea, vomiting, diarrhea, fever. Objective - Vital Signs/Intake and Output Vital Signs (last 24 hours): Temp Pulse Resp BP Pulse Ox 97.6 F 69 20 180/90 H 94 L 02/20/18 06:00 02/20/18 06:00 02/20/18 06:00 02/20/18 06:00 02/20/18 06:00 Intake and Output: 02/20/18 02/20/18 06:59 18:59 Intake Total 860 Balance 860 - Medications Medications: Current Medications Apixaban (Eliquis) 5 mg PO BID [facility] PRN Reason: Protocol Last Admin: 02/19/18 17:32 Dose: 5 mg Aspirin (Aspirin Chewable) 81 mg PO DAILY [facility] Last Admin: 02/19/18 10:17 Dose: 81 mg Lidocaine (Lidoderm) 1 ea TD DAILY [facility] Last Admin: 02/19/18 10:16 Dose: 1 ea Lisinopril (Zestril) 10 mg PO BID [facility] Last Admin: 02/19/18 17:31 Dose: 10 mg Meloxicam (Mobic) 15 mg PO DAILY [facility] Last Admin: 02/19/18 10:17 Dose: 15 mg Morphine Sulfate (Morphine) 4 mg IVP Q6 PRN PRN Reason: Pain, severe (8-10) Last Admin: 02/20/18 05:02 Dose: 4 mg Non-Formulary Medication (Rosuvastatin Calcium [Crestor]) 10 mg PO DAILY [facility] Last Admin: 02/19/18 10:18 Dose: Not Given Oxycodone HCl (Oxycodone Immediate Release Tab) 5 mg PO Q6H PRN PRN Reason: Pain, moderate (4-7) Last Admin: 02/19/18 19:51 Dose: 5 mg Polyethylene Glycol (Miralax) 17 gm PO DAILY [facility] Last Admin: 02/19/18 11:23 Dose: 17 gm Sertraline HCl (Zoloft) 100 mg PO DAILY [facility] Last Admin: 02/19/18 10:17 Dose: 100 mg Timolol Maleate (Timoptic 0.5% Ophth Soln) 1 drop OU BID [facility] Last Admin: 02/19/18 17:30 Dose: 1 drop - Constitutional Appears: Non-toxic, No Acute Distress - Head Exam Head Exam: ATRAUMATIC, NORMAL INSPECTION, NORMOCEPHALIC - ENT Exam ENT Exam: Mucous Membranes Moist - Respiratory Exam Respiratory Exam: Clear to Ausculation Bilateral, NORMAL BREATHING PATTERN - Cardiovascular Exam Cardiovascular Exam: RRR, +S1, +S2 Additional comments: Left chest wall tenderness - GI/Abdominal Exam GI & Abdominal Exam: Soft, Tenderness, Normal Bowel Sounds - Extremities Exam Extremities Exam: Normal Inspection. absent: Calf Tenderness, Pedal Edema - Neurological Exam Neurological Exam: Alert, Awake, CN II-XII Intact, Oriented x3 - Psychiatric Exam Psychiatric exam: Normal Affect, Normal Mood - Skin Skin Exam: Intact, Normal Color, Warm Assessment and Plan - Assessment and Plan (Free Text) Plan: 1. Left nondisplaced rib fracture 2. S/p fall 3. Diffuse degenerative disc disease 4. Depression 5. Hyperlipidemia 6. Hypertension Patient encouraged to use incentive spirometer and continue to work with physical therapy. Patient will continue with pain medication regimen for rib pain. Patient will be evaluated for TCU and will likely be admitted tomorrow. We will continue with current medical regimen. Karen, PGY-3 <Adolfo Walker S - Last Filed: 02/21/18 20:53> Objective - Vital Signs/Intake and Output Vital Signs (last 24 hours): Temp Pulse Resp BP Pulse Ox 98.4 F 69 20 172/62 H 97 02/21/18 14:00 02/21/18 14:00 02/21/18 14:00 02/21/18 14:00 02/21/18 14:00 Assessment and Plan - Assessment and Plan (Free Text) Plan: Pt seen and examined. I have reviewed the note of the healthcare or medical and agree with it. I have discussed the assessment and plan with the resident. I have reviewed the patient's labs and medications. This is a late entry. Pt was seen yesterday. She has rib fx and is waiting to go to TCU. Pain is controlled. She is getting PT and incentive spirometer.
[2018-02-20] MEDS: Lidocaine 5% Patch TD SCH (10:58)
[2018-02-20] MEDS: POLYETHYLENE GLYCOL 3350 17 GM/Dose PACKET PO SCH (10:58)
[2018-02-20] MEDS: Non Formulary Medication (Rosuvastatin Calcium [Crestor] 10 MG) PO SCH (10:59)
[2018-02-21] MEDS: Morphine 4 mg/ml ISec IVP PRN ×2 (06:02→12:46)
[2018-02-21 08:34] VITALS: RESP 20; O2SAT 97
--- NOTE | 2018-02-21 09:27 | CP.PCM.DIS ---
Provider - Provider Date of Admission: 02/18/18 11:43 Attending physician: Adolfo Walker MD Primary care physician: Iveth Mendoza MD Time Spent in preparation of Discharge (in minutes): 45 Diagnosis - Discharge Diagnosis (1) Fall Status: Acute Hospital Course - Lab Results Lab Results: Most Recent Lab Values WBC 9.7 10^3/ul (4.5-11.0) D 02/15/18 23:39 RBC 4.63 10^6/uL (3.5-6.1) 02/15/18 23:39 Hgb 13.9 g/dL (12.0-16.0) D 02/15/18 23:39 Hct 40.9 % (36.0-48.0) 02/15/18 23:39 MCV 88.3 fl (80.0-105.0) D 02/15/18 23:39 MCH 30.0 pg (25.0-35.0) 02/15/18 23:39 MCHC 34.0 g/dl (31.0-37.0) 02/15/18 23:39 RDW 13.8 % (11.5-14.5) 02/15/18 23:39 Plt Count 266 10^3/uL (120.0-450.0) 02/15/18 23:39 MPV 10.8 fl (7.0-11.0) 02/15/18 23:39 Gran % 58.7 % (50.0-68.0) 02/15/18 23:39 Lymph % (Auto) 28.0 % (22.0-35.0) 02/15/18 23:39 [facility] % (Auto) 8.0 % (1.0-6.0) H 02/15/18 23:39 Eos % (Auto) 5.1 % (1.5-5.0) H 02/15/18 23:39 Baso % (Auto) 0.2 % (0.0-3.0) 02/15/18 23:39 Gran # 5.69 (1.4-6.5) 02/15/18 23:39 Lymph # (Auto) 2.7 (1.2-3.4) 02/15/18 23:39 [facility] # (Auto) 0.8 (0.1-0.6) H 02/15/18 23:39 Eos # (Auto) 0.5 (0.0-0.7) 02/15/18 23:39 Baso # (Auto) 0.02 K/mm3 (0.0-2.0) 02/15/18 23:39 Sodium 144 mmol/L (132-148) 02/15/18 23:39 Potassium 4.2 mmol/L (3.6-5.0) 02/15/18 23:39 Chloride 104 mmol/L (98-107) 02/15/18 23:39 Carbon Dioxide 30 mmol/L (21-33) 02/15/18 23:39 Anion Gap 14 (10-20) 02/15/18 23:39 BUN 23 mg/dL (7-21) H 02/15/18 23:39 Creatinine 0.8 mg/dl (0.7-1.2) 02/15/18 23:39 Est GFR ( Amer) > 60 02/15/18 23:39 Est GFR (Non-Af Amer) > 60 02/15/18 23:39 Random Glucose 106 mg/dL (70-110) 02/15/18 23:39 Calcium 9.7 mg/dL (8.4-10.5) 02/15/18 23:39 Total Bilirubin 0.2 mg/dL (0.2-1.3) 02/15/18 23:39 AST 42 U/L (14-36) H D 02/15/18 23:39 ALT 32 U/L (7-56) 02/15/18 23:39 Alkaline Phosphatase 185 U/L (38-126) H D 02/15/18 23:39 Troponin I < 0.01 ng/mL 02/15/18 23:39 Total Protein 7.0 g/dL (5.8-8.3) 02/15/18 23:39 Albumin 4.1 g/dL (3.0-4.8) 02/15/18 23:39 Globulin 3.0 gm/dL 02/15/18 23:39 Albumin/Globulin Ratio 1.4 (1.1-1.8) 02/15/18 23:39 Discharge Exam - Head Exam Head Exam: ATRAUMATIC, NORMAL INSPECTION, NORMOCEPHALIC Discharge Plan - Follow Up Plan Condition: GOOD Disposition: TRANSF TO SNF Instructions: Rib Fractures in Adults, Preventing Falls in the Older Adult, Ulcerative Colitis (DC), Preventing Falls Additional Instructions: You have been discharged from [facility]. You will be going to [facility] Your primary will follow you there. Referrals: Iveth Mendoza MD [Primary Care Provider] -
--- NOTE | 2018-02-21 09:30 | CP.PCM.DIS ---
<Gary Jones - Last Filed: 02/21/18 09:27> Provider - Provider Date of Admission: 02/18/18 11:43 Attending physician: Adolfo Walker MD Primary care physician: Iveth Mendoza MD Time Spent in preparation of Discharge (in minutes): 45 Diagnosis - Discharge Diagnosis (1) Fall Status: Acute Hospital Course - Lab Results Lab Results: Most Recent Lab Values WBC 9.7 10^3/ul (4.5-11.0) D 02/15/18 23:39 RBC 4.63 10^6/uL (3.5-6.1) 02/15/18 23:39 Hgb 13.9 g/dL (12.0-16.0) D 02/15/18 23:39 Hct 40.9 % (36.0-48.0) 02/15/18 23:39 MCV 88.3 fl (80.0-105.0) D 02/15/18 23:39 MCH 30.0 pg (25.0-35.0) 02/15/18 23:39 MCHC 34.0 g/dl (31.0-37.0) 02/15/18 23:39 RDW 13.8 % (11.5-14.5) 02/15/18 23:39 Plt Count 266 10^3/uL (120.0-450.0) 02/15/18 23:39 MPV 10.8 fl (7.0-11.0) 02/15/18 23:39 Gran % 58.7 % (50.0-68.0) 02/15/18 23:39 Lymph % (Auto) 28.0 % (22.0-35.0) 02/15/18 23:39 [place] % (Auto) 8.0 % (1.0-6.0) H 02/15/18 23:39 Eos % (Auto) 5.1 % (1.5-5.0) H 02/15/18 23:39 Baso % (Auto) 0.2 % (0.0-3.0) 02/15/18 23:39 Gran # 5.69 (1.4-6.5) 02/15/18 23:39 Lymph # (Auto) 2.7 (1.2-3.4) 02/15/18 23:39 [place] # (Auto) 0.8 (0.1-0.6) H 02/15/18 23:39 Eos # (Auto) 0.5 (0.0-0.7) 02/15/18 23:39 Baso # (Auto) 0.02 K/mm3 (0.0-2.0) 02/15/18 23:39 Sodium 144 mmol/L (132-148) 02/15/18 23:39 Potassium 4.2 mmol/L (3.6-5.0) 02/15/18 23:39 Chloride 104 mmol/L (98-107) 02/15/18 23:39 Carbon Dioxide 30 mmol/L (21-33) 02/15/18 23:39 Anion Gap 14 (10-20) 02/15/18 23:39 BUN 23 mg/dL (7-21) H 02/15/18 23:39 Creatinine 0.8 mg/dl (0.7-1.2) 02/15/18 23:39 Est GFR ( Amer) > 60 02/15/18 23:39 Est GFR (Non-Af Amer) > 60 02/15/18 23:39 Random Glucose 106 mg/dL (70-110) 02/15/18 23:39 Calcium 9.7 mg/dL (8.4-10.5) 02/15/18 23:39 Total Bilirubin 0.2 mg/dL (0.2-1.3) 02/15/18 23:39 AST 42 U/L (14-36) H D 02/15/18 23:39 ALT 32 U/L (7-56) 02/15/18 23:39 Alkaline Phosphatase 185 U/L (38-126) H D 02/15/18 23:39 Troponin I < 0.01 ng/mL 02/15/18 23:39 Total Protein 7.0 g/dL (5.8-8.3) 02/15/18 23:39 Albumin 4.1 g/dL (3.0-4.8) 02/15/18 23:39 Globulin 3.0 gm/dL 02/15/18 23:39 Albumin/Globulin Ratio 1.4 (1.1-1.8) 02/15/18 23:39 - Hospital Course Hospital Course: 72 year old female HTN, OA, CVA, and chronic anemia presented to the hospital for left chest pain. Patient tripped at home on some bags and feel and hit her left side. Patient was found to have left rib fractures, nondisplaced. Patient was placed on appropriate pain medication. Patient will go to TCU for deconditioning. Discharge Exam - Head Exam Head Exam: ATRAUMATIC, NORMAL INSPECTION, NORMOCEPHALIC - ENT Exam ENT Exam: Mucous Membranes Moist - Respiratory Exam Respiratory Exam: NORMAL BREATHING PATTERN, UNREMARKABLE - Cardiovascular Exam Cardiovascular Exam: RRR, +S1, +S2 Additional comments: Left chest wall tenderness - GI/Abdominal Exam GI & Abdominal Exam: Soft, Unremarkable. absent: Tenderness - Extremities Exam Extremities exam: normal inspection - Neurological Exam Neurological exam: Alert, CN II-XII Intact, Oriented x3 - Psychiatric Exam Psychiatric exam: Normal Affect, Normal Mood - Skin Skin Exam: Intact, Normal Color, Warm Discharge Plan - Follow Up Plan Condition: GOOD Disposition: TRANSF TO SNF Instructions: Rib Fractures in Adults, Preventing Falls in the Older Adult, Ulcerative Colitis (DC), Preventing Falls Additional Instructions: You have been discharged from [facility]. You will be going to [facility] Your primary will follow you there. Referrals: Iveth Mendoza MD [Primary Care Provider] - <Adolfo Walker - Last Filed: 02/21/18 21:19> Provider - Provider Date of Admission: 02/18/18 11:43 Attending physician: Adolfo Walker MD Primary care physician: Iveth Mendoza MD Hospital Course - Lab Results Lab Results: Most Recent Lab Values WBC 9.7 10^3/ul (4.5-11.0) D 02/15/18 23:39 RBC 4.63 10^6/uL (3.5-6.1) 02/15/18 23:39 Hgb 13.9 g/dL (12.0-16.0) D 02/15/18 23:39 Hct 40.9 % (36.0-48.0) 02/15/18 23:39 MCV 88.3 fl (80.0-105.0) D 02/15/18 23:39 MCH 30.0 pg (25.0-35.0) 02/15/18 23:39 MCHC 34.0 g/dl (31.0-37.0) 02/15/18 23:39 RDW 13.8 % (11.5-14.5) 02/15/18 23:39 Plt Count 266 10^3/uL (120.0-450.0) 02/15/18 23:39 MPV 10.8 fl (7.0-11.0) 02/15/18 23:39 Gran % 58.7 % (50.0-68.0) 02/15/18 23:39 Lymph % (Auto) 28.0 % (22.0-35.0) 02/15/18 23:39 [place] % (Auto) 8.0 % (1.0-6.0) H 02/15/18 23:39 Eos % (Auto) 5.1 % (1.5-5.0) H 02/15/18 23:39 Baso % (Auto) 0.2 % (0.0-3.0) 02/15/18 23:39 Gran # 5.69 (1.4-6.5) 02/15/18 23:39 Lymph # (Auto) 2.7 (1.2-3.4) 02/15/18 23:39 [place] # (Auto) 0.8 (0.1-0.6) H 02/15/18 23:39 Eos # (Auto) 0.5 (0.0-0.7) 02/15/18 23:39 Baso # (Auto) 0.02 K/mm3 (0.0-2.0) 02/15/18 23:39 Sodium 144 mmol/L (132-148) 02/15/18 23:39 Potassium 4.2 mmol/L (3.6-5.0) 02/15/18 23:39 Chloride 104 mmol/L (98-107) 02/15/18 23:39 Carbon Dioxide 30 mmol/L (21-33) 02/15/18 23:39 Anion Gap 14 (10-20) 02/15/18 23:39 BUN 23 mg/dL (7-21) H 02/15/18 23:39 Creatinine 0.8 mg/dl (0.7-1.2) 02/15/18 23:39 Est GFR ( Amer) > 60 02/15/18 23:39 Est GFR (Non-Af Amer) > 60 02/15/18 23:39 Random Glucose 106 mg/dL (70-110) 02/15/18 23:39 Calcium 9.7 mg/dL (8.4-10.5) 02/15/18 23:39 Total Bilirubin 0.2 mg/dL (0.2-1.3) 02/15/18 23:39 AST 42 U/L (14-36) H D 02/15/18 23:39 ALT 32 U/L (7-56) 02/15/18 23:39 Alkaline Phosphatase 185 U/L (38-126) H D 02/15/18 23:39 Troponin I < 0.01 ng/mL 02/15/18 23:39 Total Protein 7.0 g/dL (5.8-8.3) 02/15/18 23:39 Albumin 4.1 g/dL (3.0-4.8) 02/15/18 23:39 Globulin 3.0 gm/dL 02/15/18 23:39 Albumin/Globulin Ratio 1.4 (1.1-1.8) 02/15/18 23:39 - Hospital Course Hospital Course: Pt seen and examined. I have reviewed the note of the medical technician and agree with it. I have discussed the assessment and plan with the resident. I have reviewed the patient's labs and medications. Pt with zunilda and Danelle huntley fx. She is going to TCU. Pain is controlling.
[2018-02-21] MEDS: POLYETHYLENE GLYCOL 3350 17 GM/Dose PACKET PO SCH (11:13)
[2018-02-21] MEDS: Lidocaine 5% Patch TD SCH (11:13)
[2018-02-21] MEDS: oxyCODONE 5 mg Immediate Release Tab PO PRN (15:15)
[2018-02-21 15:18] VITALS: BP 172/62; PULSE 69; TEMP 98.4
== END 2018-02-21 17:09 | DRG 206 ==
LOC: ED 22:31 → ERH 02-16 02:54 → 5RNO 02-16 04:21 → OBSVTOIN 02-18 11:43
PROVIDERS: ADMIT Internal Medicine; ATTEND Internal Medicine Nephrology
DX: S22.32XA Fracture of one rib, left side, initial encounter for closed fracture (principal); I10 Essential (primary) hypertension; D64.9 Anemia, unspecified; E78.5 Hyperlipidemia, unspecified; F32.9 Major depressive disorder, single episode, unspecified; H40.9 Unspecified glaucoma; M15.9 Polyosteoarthritis, unspecified; R26.2 Difficulty in walking, not elsewhere classified; M51.9 Unspecified thoracic, thoracolumbar and lumbosacral intervertebral disc disorder; Z96.641 Presence of right artificial hip joint; W18.09XA Striking against other object with subsequent fall, initial encounter; Y92.009 Unspecified place in unspecified non-institutional (private) residence as the place of occurrence of the external cause; Z79.01 Long term (current) use of anticoagulants; Z86.73 Personal history of transient ischemic attack (TIA), and cerebral infarction without residual deficits; Z87.891 Personal history of nicotine dependence

== ENCOUNTER 2018-02-24 07:47 | Inpatient (IN) | payer MEDICARE, MEDICAID ==
[2018-02-24 07:47] VITALS: BMI 32.7
[2018-02-24] MEDS ORDERED: Sodium Chloride 0.9% 1,000 ML IV STA (08:06)
--- NOTE | 2018-02-24 08:08 | ED PDOC ---
Arrival/HPI - General Chief Complaint: GI Problem Time Seen by Provider: 02/24/18 07:51 Historian: Patient - History of Present Illness Narrative History of Present Illness (Text): 02/24/18 08:01 72 year old female, whose past medical history includes hypertension, OA, CVA, and chronic anemia on Eliquis who presents to the Emergency department complaining of hematochezia for the past 4 hours. She reports associated nausea and chills. She states patient experienced 3 episodes of bloody bowel movements since 0:400AM. Patient was sent down to the Emergency department from TCU floor from being admitted the hospital as a result of a fall and left sided chest pain on ./ Patient denies any fever, vomiting, diarrhea, urinary symptoms, neck pain, headache, dizziness, or any other complaints. Time/Duration: 4-6 hours Symptom Onset: Gradual Symptom Course: Unchanged Activities at Onset: Light Context: Other (Hospital) Past Medical History - Provider Review Nursing Documentation Reviewed: Yes - Travel History Have you recently traveled outside [place] w/in the past 3 mons?: No - Past History Past History: Non-Contributing - Infectious Disease Hx of Infectious Diseases: None - Tetanus Immunization Tetanus Immunization: Up to Date - Cardiac Hx Cardiac Disorders: Yes Hx Hypertension: Yes - Pulmonary Hx Respiratory Disorders: No - Neurological HX Cerebrovascular Accident: Yes - HEENT Hx Cataracts: Yes Hx Glaucoma: Yes Other/Comment: reports surgery for cataract removal - Renal Hx Renal Disorder: No - Endocrine/Metabolic Hx Endocrine Disorders: No - Hematological/Oncological Hx Anemia: Yes - Integumentary Hx Dermatological Disorder: No - Musculoskeletal/Rheumatological Hx Falls: Yes (multiple falls last 2 months) - Gastrointestinal Hx Gastrointestinal Disorders: Yes Hx Diverticulitis: Yes Hx Gall Bladder Disease: Yes - Genitourinary/Gynecological Hx Genitourinary Disorders: No Other/Comment: hysterectomy, age 36 - Psychiatric Hx Psychophysiologic Disorder: Yes Hx Anxiety: Yes Hx Depression: Yes Hx Substance Use: No - Past Surgical History Past Surgical History: Non-Contributing - Surgical History Hx Appendectomy: Yes Hx Cholecystectomy: Yes Hx Hysterectomy: Yes Hx Orthopedic Surgery: Yes (R hip x3) Other/Comment: right hip surgery 07/2017, 04/2017, 08/2015 - Anesthesia Hx Anesthesia: Yes Hx Anesthesia Reactions: No Hx Malignant Hyperthermia: No - Suicidal Assessment Feels Threatened In Home Enviroment: No Family/Social History - Physician Review Nursing Documentation Reviewed: Yes Family/Social History: Unknown Family HX Smoking Status: Former Smoker Hx Alcohol Use: No Hx Substance Use: No Hx Substance Use Treatment: No Allergies/Home Meds Allergies/Adverse Reactions: Allergies atorvastatin calcium [From Lipitor] Allergy (Verified 02/24/18 07:54) FATIGUE clopidogrel bisulfate [From Plavix] Allergy (Verified 02/24/18 07:54) SHORTNESS OF BREATH nalbuphine HCl [From Nubain] Allergy (Verified 02/24/18 07:54) VOMITING Home Medications: Home Meds Medication Instructions Recorded Confirmed Omeprazole [Prilosec] 20 mg PO BID 04/19/15 02/16/18 Apixaban [Eliquis] 5 mg PO BID 08/18/17 02/16/18 Aspirin [Aspirin Chewable] 81 mg PO DAILY 08/18/17 02/16/18 Enalapril Maleate [Vasotec] 10 mg PO BID 08/18/17 02/16/18 Rosuvastatin Calcium [Crestor] 10 mg PO DAILY 08/18/17 02/16/18 Review of Systems - Physician Review All systems were reviewed & negative as marked: Yes - Review of Systems Constitutional: Normal Eyes: Normal ENT: Normal Respiratory: SOB (from previous rib injury). absent: Cough Cardiovascular: Chest Pain (from previous rib injury) Gastrointestinal: Nausea, Hematochezia. absent: Abdominal Pain, Diarrhea, Vomiting Genitourinary Female: Normal. absent: Dysuria, Frequency, Hematuria Musculoskeletal: Normal. absent: Back Pain, Neck Pain Skin: Normal. absent: Rash Neurological: Normal. absent: Headache, Dizziness Endocrine: Normal Hemo/Lymphatic: Normal Psychiatric: Normal Physical Exam Vital Signs Reviewed: Yes Vital Signs Temp Pulse Resp BP Pulse Ox 02/24/18 09:47 98 F 74 19 125/62 97 02/24/18 08:56 97 F L 85 19 124/74 95 02/24/18 07:51 98.1 F 81 18 141/68 99 Temperature: Afebrile Blood Pressure: Normal Pulse: Regular Respiratory Rate: Normal Appearance: Positive for: Well-Appearing, Non-Toxic, Comfortable Pain Distress: None Mental Status: Positive for: Alert and Oriented X 3 - Systems Exam Head: Present: Atraumatic, Normocephalic Pupils: Present: PERRL Extroacular Muscles: Present: EOMI Conjunctiva: Present: Normal Mouth: Present: Moist Mucous Membranes Neck: Present: Normal Range of Motion Respiratory/Chest: Present: Clear to Auscultation, Good Air Exchange, Tender to Palpation (TTP to left lower anterior chest wall), Other (ecchymosis left breast ). No: Respiratory Distress, Accessory Muscle Use Cardiovascular: Present: Regular Rate and Rhythm, Normal S1, S2. No: Murmurs Abdomen: Present: Tenderness (LLQ). No: Distention, Peritoneal Signs Rectal: Present: Occult Blood (hemmoccult positive), Gross Blood (dark red blood yielded from rectal vault), Hemorrhoids (external non-thrombosed hemorrhoids), Normal Rectal Tone, Other (hemeoccult positive) Back: Present: Normal Inspection Upper Extremity: Present: Normal Inspection. No: Cyanosis, Edema Lower Extremity: Present: Normal Inspection. No: Edema Neurological: Present: GCS=15, CN II-XII Intact, Speech Normal Skin: Present: Warm, Dry, Normal Color. No: Rashes Psychiatric: Present: Alert, Oriented x 3, Normal Insight, Normal Concentration Medical Decision Making ED Course and Treatment: 02/24/18 08:15 Impression: 72 year old female presents to the Emergency department complaining of hematochezia x 4 hours. Differential Diagnoses Include But Are not Limited To: Angiodysplasia Adverse medication effect(Eliquis) Ulcer Plan: --Labs --Protonix --Morphine --CT a/p -- CXR -- IVF -- UA -- Reassess and disposition Progress Notes: 02/24/18 09:32 Labs reviewed with Hgb 132. and no anemia noted. Paged Dr. Hendrickson(Dr. Joann long) and Dr. Marvin(GI). Spoke to Dr. Marvin who requests Protonix injection and liquid diet. He is considering a bleeding scan and colonscopy to be performed on her admission. 02/24/18 09:[address] Means(internal medicine) who accepts patient onto her service. Protonix ordered. - Lab Interpretations Narrative Lab Interpretation (Text): 02/24/18 09:17 CXR reviewed, shows: IMPRESSION: No acute cardiopulmonary disease appreciated. Lab Results: 02/24/18 08:00 02/24/18 08:00 Lab Results 02/24/18 08:30: Blood Type O POSITIVE, Antibody Screen Negative, BBK History Checked No verified bt 02/24/18 08:00: Sodium 140, Potassium 4.3, Chloride 104, Carbon Dioxide 27, Anion Gap 13, BUN 21, Creatinine 0.7, Est GFR ( Amer) > 60, Est GFR (Non- Af Amer) > 60, Random Glucose 116 H, Calcium 9.2, Magnesium 2.1, Total Bilirubin 0.5, AST 30, ALT 28, Alkaline Phosphatase 169 H, Total Protein 6.9, Albumin 3.9, Globulin 2.9, Albumin/Globulin Ratio 1.3 02/24/18 08:00: PT 16.3 H, INR 1.41, APTT 33.9 02/24/18 08:00: WBC 12.4 H D, RBC 4.39, Hgb 13.2, Hct 39.8, MCV 90.7, MCH 30.1, MCHC 33.2, RDW 13.4, Plt Count 239, MPV 10.9, Gran % 78.5 H, Lymph % (Auto) 11.7 L, [place] % (Auto) 5.8, Eos % (Auto) 3.8, Baso % (Auto) 0.2, Gran # 9.76 H, Lymph # (Auto) 1.5, [place] # (Auto) 0.7 H, Eos # (Auto) 0.5, Baso # (Auto) 0.03 - RAD Interpretation Radiology Orders: 02/24/18 08:06 CHEST PORTABLE [RAD] Stat - Medication Orders Current Medication Orders: Discontinued Medications Sodium Chloride (Sodium Chloride 0.9%) 1,000 mls @ 999 mls/hr IV .Q1H1M STA Stop: 02/24/18 09:06 Last Admin: 02/24/18 09:09 Dose: 999 mls/hr eMAR Start Stop Document 02/24/18 09:09 GMI (Rec: 02/24/18 09:10 [facility] [id number]) Intravenous Solution Start Date 02/24/18 Start Time 09:09 End Date 02/24/18 End time 10:15 Total Infusion Time 66 Morphine Sulfate (Morphine) 2 mg IVP STAT STA Stop: 02/24/18 08:56 Last Admin: 02/24/18 09:08 Dose: 2 mg MAR Pain Assessment Document 02/24/18 09:08 GMI (Rec: 02/24/18 09:08 GMI [id number]) Pain Reassessment Is this a pain reassessment? Yes Sleep Is patient sleeping during reassessment? No Presence of Pain Presence of Pain Yes Pain Scale Used Pain Scale Used Numeric Location Left, Right or Bilateral Right Description Description Sharp Intensity of Pain at present 7 Pain Behavior Facial Grimacing Alleviating Factors/Management Relaxation Techniques Techniques Alleviating Factors Distraction IVP Administration Document 02/24/18 09:08 GMI (Rec: 02/24/18 09:08 GMI [id number]) Charges for Administration # of IVP Administrations 1 Pantoprazole Sodium (Protonix Inj) 40 mg IVP STAT STA Stop: 02/24/18 09:32 Last Admin: 02/24/18 09:49 Dose: 40 mg IVP Administration Document 02/24/18 09:49 GMI (Rec: 02/24/18 09:49 GMI [id number]) Charges for Administration # of IVP Administrations 1 - Scribe Statement The provider has reviewed the documentation as recorded by the Scribe Pooja Thomas All medical record entries made by the Scribbishop were at my direction and personally dictated by me. I have reviewed the chart and agree that the record accurately reflects my personal performance of the history, physical exam, medical decision making, and the department course for this patient. I have also personally directed, reviewed, and agree with the discharge instructions and disposition. Disposition/Present on Arrival - Present on Arrival Any Indicators Present on Arrival: No History of DVT/PE: No History of Uncontrolled Diabetes: No Urinary Catheter: No History of Decub. Ulcer: No History Surgical Site Infection Following: None - Disposition Have Diagnosis and Disposition been Completed?: Yes Diagnosis: GI bleeding Disposition: HOSPITALIZED Disposition Time: 09:36 Patient Plan: Admission Condition: STABLE
--- NOTE | 2018-02-24 08:28 | RAD ---
Date of service: 02/24/2018 HISTORY: sob COMPARISON: Portable chest 08/18/2017. FINDINGS: LUNGS: No active pulmonary disease. PLEURA: No significant pleural effusion identified, no pneumothorax apparent. CARDIOVASCULAR: Normal. OSSEOUS STRUCTURES: No significant abnormalities. VISUALIZED UPPER ABDOMEN: Normal. OTHER FINDINGS: None. IMPRESSION: No acute cardiopulmonary disease appreciated.
[2018-02-24 08:41] LABS: BASO # 0.03 K/mm3 (0.0-2.0); BASO % 0.2 % (0.0-3.0); EOS # 0.5 (0.0-0.7); EOS % 3.8 % (1.5-5.0); GRAN # 9.76 (1.4-6.5); GRAN % 78.5 % (50.0-68.0); HEMOGLOBIN 13.2 g/dL (12.0-16.0); LYMPH # 1.5 (1.2-3.4); LYMPH % 11.7 % (22.0-35.0); MEAN CELL VOLUME 90.7 fl (80.0-105.0); MEAN CORPUSCULAR HEMOGLOBIN 30.1 pg (25.0-35.0); MEAN CORPUSCULAR HGB CONC 33.2 g/dl (31.0-37.0); MEAN PLATELET VOLUME 10.9 fl (7.0-11.0); MONO # 0.7 (0.1-0.6); MONO % 5.8 % (1.0-6.0); RBC 4.39 10^6/uL (3.5-6.1); RED CELL DISTRIBUTION WIDTH 13.4 % (11.5-14.5); WHITE BLOOD COUNT 12.4 10^3/ul (4.5-11.0)
[2018-02-24 08:45] LABS: INR 1.41; PARTIAL THROMBOPLASTIN TIME 33.9 Seconds (25.1-36.5); PROTHROMBIN TIME 16.3 SECONDS (9.4-12.5)
[2018-02-24] MEDS ORDERED: Morphine 2 mg/ml ISec IVP STA (08:55)
[2018-02-24 09:00] LABS: ALB/GLOB RATIO 1.3 (1.1-1.8); ALBUMIN 3.9 g/dL (3.0-4.8); ALT/SGPT 28 U/L (7-56); AST/SGOT 30 U/L (14-36); BLOOD UREA NITROGEN 21 mg/dL (7-21); CALCIUM 9.2 mg/dL (8.4-10.5); GFR NON-AFRICAN AMERICAN > 60
[2018-02-24] MEDS ORDERED: Barium Sulfate Susp 2.1% w/v, 2.0% w/w 450 mL Bottle PO ONE (10:56)
[2018-02-24] MEDS ORDERED: Iohexol 240 (50 ml) ONE (10:59)
[2018-02-24] MEDS ORDERED: Ciprofloxacin 400mg/200ml D5W 400 MG/200 ML BAG IVPB SCH (12:00)
[2018-02-24] MEDS ORDERED: Iohexol 350 MG/100 ML VIAL ONE (13:30)
[2018-02-24 14:20] LABS: HEMOGLOBIN 11.4 g/dL (12.0-16.0)
[2018-02-24] MEDS: metroNIDAZOLE IV 500 mg/100 ml 500 MG/100 ML BAG IVPB SCH ×2 (14:24→21:42)
[2018-02-24] MEDS: Sodium Chloride 0.9% 1,000 ML IV SCH (14:24)
--- NOTE | 2018-02-24 14:52 | CT ---
Date of service: 02/24/2018 PROCEDURE: CT Abdomen and Pelvis with contrast HISTORY: abdominal pain s/p fall eval spleen COMPARISON: Abdomen pelvis CT with contrast 08/18/2017. TECHNIQUE: Contrast dose: Omnipaque 350, 96 cc Radiation dose: Total exam DLP = 874.29 mGy-cm. This CT exam was performed using one or more of the following dose reduction techniques: Automated exposure control, adjustment of the mA and/or kV according to patient size, and/or use of iterative reconstruction technique. FINDINGS: LOWER THORAX: Unremarkable. LIVER: Diminished attenuation throughout the liver is indicative of diffuse fatty infiltration without focal mass or intrahepatic biliary dilatation appreciated. GALLBLADDER AND BILE DUCTS: Prior cholecystectomy. PANCREAS: Unremarkable. No gross lesion or ductal dilatation. SPLEEN: Unremarkable. No evidence to suggest posttraumatic change. ADRENALS: Unremarkable. No mass. KIDNEYS AND URETERS: Unremarkable. No hydronephrosis. No solid mass. VASCULATURE: An atherosclerotic nonaneurysmal abdominal aorta is identified as well as the iliac arterial system bilaterally. BOWEL: No bowel obstruction, mesenteric edema or suspicious mural thickening. The stomach is partially collapsed. Descending and sigmoid diverticulosis identified without definite diverticulitis. Right hip arthroplasty hardware related artifact obscures imaging through the lower pelvis however. Fluid partially fills in numerous distal large-bowel segments suspicious for diarrhea. Clinically correlate. APPENDIX: Not identified. No CT evidence to suggest appendicitis. PERITONEUM: Unremarkable. No free fluid. No free air. LYMPH NODES: Unremarkable. No enlarged lymph nodes. BLADDER: Unremarkable. REPRODUCTIVE: Prior hysterectomy. BONES: No acute fracture. OTHER FINDINGS: None. IMPRESSION: 1. Hepatic steatosis. 2. Normal spleen. 3. No fracture identified including thoracic spine and visualized ribs. 4. Extensive left colonic diverticulosis without diverticulitis. 5. Prior cholecystectomy. Prior hysterectomy. 6. Prior right hip arthroplasty obscures imaging through the lower pelvis.
[2018-02-24 20:53] LABS: HEMOGLOBIN 10.1 g/dL (12.0-16.0)
[2018-02-24] MEDS: CRESTOR 5 MG PO SCH (21:42)
[2018-02-24] MEDS: Morphine 2 mg/ml ISec IVP PRN (23:11)
--- NOTE | 2018-02-24 23:15 | CP.PCM.CON ---
History of Present Illness - History of Present Illness History of Present Illness: General Surgery consult note for Dr. Roberts Consulted for: GI bleed Patient is a 72F with PMH including carotid artery stenosis s/p right CEA, CVA, HTN, diverticulitis, and PUD and PSH of cholecystectomy, appendecomy, hysterectomy, and right hip surgery x3 who was recently admitted to [facility] [place] after a fall at home and then transferred to the TCU on 02/21 for further physical therapy. Patient was started on Eliquis on 02/21, and was last taken at 1730 02/23. This AM patient went to the bathroom and noted a large amount of clotted blood on the toilet paper, and proceeded to have 4 more events passing large clots witnessed by nursing and daughter. Patient was sent to the ER, admitted to , and her hemoglobin dropped from 13 to 11 and then 10 over the course of the day and she was admitted to the ICU for monitoring. Patient denies any further bloody movements since being transferred to the unit, has some left sided abdominal pain, but no nausea, vomiting, hematemesis, dysuria, hematuria, chest pain, fevers, or SOB. Patient denies any previous episodes and states she does not take eliquis or any blood thinners but ASA at home. She states she had a colonoscopy 3 years ago which found non-cancerous polyps, and an EGD 3 years ago that was benign. PMH: HTN, PUD, OA, HLD, CVA, glaucoma, diverticulitis, anxiety, depression PSH: appendectomy, cholecystectomy, Carotid endarterectomy, hysterectomy, right hip surgeryx3 07/2017 most recent, tonsillectomy ALL: lipitor, plavix, nalbuphine Social: 30 year 3ppd cigarette history, quit 30 years ago. Previous occasional drinker. Denies any illicit substances Review of Systems - Review of Systems All systems: reviewed and no additional remarkable complaints except (as per HPI ) Past Patient History - Infectious Disease Hx of Infectious Diseases: None - Tetanus Immunizations Tetanus Immunization: Up to Date - Past Medical History & Family History Past Medical History?: Yes Past Family History: Reviewed and not pertinent - Past Social History Smoking Status: Former Smoker Alcohol: None Drugs: Denies - CARDIAC Hx Cardiac Disorders: Yes Hx Hypercholesterolemia: Yes Hx Hypertension: Yes Other/Comment: carotid artery stenosis s/p right CEA - PULMONARY Hx Respiratory Disorders: Yes Hx Pneumonia: Yes - NEUROLOGICAL Hx Neurological Disorder: Yes HX Cerebrovascular Accident: Yes Hx Transient Ischemic Attacks (TIA): Yes - HEENT Hx Cataracts: Yes Hx Glaucoma: Yes Other/Comment: reports surgery for cataract removal - RENAL Hx Chronic Kidney Disease: No - ENDOCRINE/METABOLIC Hx Endocrine Disorders: No - HEMATOLOGICAL/ONCOLOGICAL Hx Anemia: Yes - INTEGUMENTARY Hx Dermatological Problems: No - MUSCULOSKELETAL/RHEUMATOLOGICAL Hx Back Pain: Yes Hx Falls: Yes (multiple falls last 2 months) Hx Herniated Disk: Yes - GASTROINTESTINAL Hx Gastrointestinal Disorders: Yes Hx Diverticulitis: Yes Hx Gall Bladder Disease: Yes Hx Ulcer: Yes (gastric ulcer) - GENITOURINARY/GYNECOLOGICAL Hx Genitourinary Disorders: Yes Other/Comment: hysterectomy, age 36 - PSYCHIATRIC Hx Psychophysiologic Disorder: Yes Hx Anxiety: Yes Hx Depression: Yes Hx Substance Use: No - SURGICAL HISTORY Hx Appendectomy: Yes Hx Carotid Endarterectomy: Yes (right) Hx Cholecystectomy: Yes Hx Hysterectomy: Yes Hx Orthopedic Surgery: Yes (R hip x3) Other/Comment: right hip surgery 07/2017, 04/2017, 08/2015 - ANESTHESIA Hx Anesthesia: Yes Hx Anesthesia Reactions: No Hx Malignant Hyperthermia: No Meds Allergies/Adverse Reactions: Allergies Allergy/AdvReac Type Severity Reaction Status Date / Time atorvastatin calcium Allergy FATIGUE Verified 02/24/18 07:54 [From Lipitor] clopidogrel bisulfate Allergy SHORTNESS Verified 02/24/18 07:54 [From Plavix] OF BREATH nalbuphine HCl [From Nubain] Allergy VOMITING Verified 02/24/18 07:54 - Medications Medications: Current Medications Home Med (Home Med) 1 unit PO HS WILIAM Last Admin: 02/24/18 21:42 Dose: 1 unit Metronidazole (Flagyl) 500 mg in 100 mls @ 100 mls/hr IVPB Q8 WILIAM PRN Reason: Protocol Last Admin: 02/24/18 21:42 Dose: 100 mls/hr Sodium Chloride (Sodium Chloride 0.9%) 1,000 mls @ 70 mls/hr IV .[id number] [facility] Last Admin: 02/24/18 14:24 Dose: 70 mls/hr Lisinopril (Zestril) 10 mg PO BID WILIAM Morphine Sulfate (Morphine) 2 mg IVP Q4H PRN PRN Reason: Pain, moderate (4-7) Pantoprazole Sodium (Protonix Inj) 40 mg IVP DAILY [facility] Last Admin: 02/24/18 14:23 Dose: 40 mg Sertraline HCl (Zoloft) 100 mg PO DAILY [facility] Last Admin: 02/24/18 14:23 Dose: 100 mg Timolol Maleate (Timoptic 0.5% Ophth Soln) 0 drop OU BID [facility] Physical Exam - Constitutional Appears: Well, Non-toxic, No Acute Distress - Head Exam Head Exam: ATRAUMATIC, NORMOCEPHALIC - Eye Exam Eye Exam: Normal appearance. absent: Conjunctival injection, Scleral icterus - ENT Exam ENT Exam: Mucous Membranes Moist, Normal Oropharynx - Respiratory Exam Respiratory Exam: NORMAL BREATHING PATTERN. absent: Accessory Muscle Use, Respiratory Distress - Cardiovascular Exam Cardiovascular Exam: RRR - GI/Abdominal Exam GI & Abdominal Exam: Soft, Tenderness (LLQ, RLQ). absent: Distended - Rectal Exam Rectal Exam: Deferred - Neurological Exam Neurological exam: Alert, Oriented x3 - Psychiatric Exam Psychiatric exam: Normal Affect, Normal Mood - Skin Skin Exam: Dry, Pallor, Warm Results - Vital Signs Recent Vital Signs: Last Vital Signs Temp 98 F 02/24/18 09:47 Pulse 92 H 02/24/18 16:59 Resp 20 02/24/18 16:59 BP 149/66 02/24/18 17:00 Pulse Ox 98 02/24/18 16:59 - Labs Result Diagrams: 02/24/18 20:13 02/24/18 08:00 Labs: Laboratory Results - last 24 hr 02/24/18 02/24/18 02/24/18 10:25 14:10 20:13 Hgb 11.4 L 10.1 L Hct 35.1 L 32.0 L Blood Type Confirm O POSITIVE - Imaging and Cardiology CT scan - abdomen Status: Image reviewed by me, Report reviewed by me Assessment & Plan - Assessment and Plan (Free Text) Assessment: 72F with hematochezia, likely lower GI bleed, possible bleeding diverticulosis Plan: Hold all blood thinners and antiplatelets Continue to trend h/h Q4h Strict urine output monitoring Monitor for further GI bleeding Monitor vitals closely Continue antibiotics Continue daily protonix F/U GI recs No indication for surgical intervention at this time--patient is currently hemodynamically stable, no active bleed for several hours, bleeding scan only reveals minimal collection in the rectum which is non-conclusive at this time. Will continue to monitor clinically for any worsening in condition and follow up with GI--colonoscopy or EGD might be beneficial for localization of the GI bleed Diet management per GI Further recommendations per Dr. Armando Dill, [id number]
[2018-02-25 04:51] LABS: ALB/GLOB RATIO 1.2 (1.1-1.8); ALBUMIN 2.8 g/dL (3.0-4.8); ALT/SGPT 27 U/L (7-56); AST/SGOT 21 U/L (14-36); BLOOD UREA NITROGEN 16 mg/dL (7-21); CALCIUM 8.2 mg/dL (8.4-10.5); GFR NON-AFRICAN AMERICAN > 60
[2018-02-25 05:08] LABS: HEMOGLOBIN 9.6 g/dL (12.0-16.0)
[2018-02-25] MEDS: metroNIDAZOLE IV 500 mg/100 ml 500 MG/100 ML BAG IVPB SCH (06:00)
[2018-02-25] MEDS: Sodium Chloride 0.9% 1,000 ML IV SCH ×2 (06:46→21:00)
[2018-02-25] MEDS: Morphine 2 mg/ml ISec IVP PRN ×3 (07:14→22:34)
[2018-02-25] MEDS ORDERED: oxyCODONE 10 mg Immediate Release Tab PO STA (08:23)
--- NOTE | 2018-02-25 08:25 | CP.CCUPN ---
Addendum entered and electronically signed by Denis Pastor DO 02/25/18 12:14 : Plan correction: Patient will NOT undergo MRCP Surgery will NOT be consulted post MRCP Patient is to under go colonoscopy by GI tomorrow 02/26 Original Note: <Denis Pastor - Last Filed: 02/25/18 11:35> CCU Subjective - Physician Review Subjective (Free Text): Denis Pastor DO PGY1 - Internal Medicine Hand Heel Seat Fitter - ICU Progress Note Patient was seen and evaluated at bedside this AM; No acute events reported overnight; This AM patient complaining of rib pain and some epigastric pain; pt. also complaining of heartburn Remainder of 12 system ROS is negative at this time. CCU Objective - Vital Signs / Intake & Output Vital Signs (Last 4 hours): Vital Signs Pulse Resp BP Pulse Ox 02/25/18 06:50 73 15 100 02/25/18 06:40 78 17 99 02/25/18 06:30 100 02/25/18 06:20 81 18 100 02/25/18 06:10 81 24 95 02/25/18 06:00 138/56 L 02/25/18 05:59 80 22 98 02/25/18 05:50 81 26 H 98 02/25/18 05:40 80 35 H 99 02/25/18 05:30 76 23 93 L 02/25/18 05:20 89 23 83 L 02/25/18 05:10 77 24 89 L 02/25/18 05:00 81 21 119/49 L 96 02/25/18 04:50 78 22 99 02/25/18 04:40 74 25 H 98 02/25/18 04:30 75 29 H 99 Intake and Output (Last 8hrs): Intake & Output 02/24/18 02/25/18 02/25/18 22:59 06:59 14:59 Intake Total 1200 Output Total 1200 Balance 0 Weight 73.482 kg Intake: IV 840 Left Wrist 840 Oral 360 Output: Urine 1200 Urethral (Louis) 1200 Other: # Bowel Movements 0 - Physical Exam Head: Positive for: Atraumatic, Normocephalic Pupils: Positive for: PERRL Extroacular Muscles: Positive for: EOMI Conjunctiva: Positive for: Normal Mouth: Positive for: Moist Mucous Membranes Neck: Positive for: Normal Range of Motion Respiratory/Chest: Positive for: Clear to Auscultation, Good Air Exchange, Tender to Palpation (TTP to left lower anterior chest wall), Other (ecchymosis left breast). Negative for: Respiratory Distress, Accessory Muscle Use Cardiovascular: Positive for: Regular Rate and Rhythm, Normal S1, S2. Negative for: Murmurs Abdomen: Positive for: Tenderness (LLQ; Epigastric ). Negative for: Distention , Peritoneal Signs Back: Positive for: Normal Inspection Upper Extremity: Positive for: Normal Inspection. Negative for: Cyanosis, Edema Lower Extremity: Positive for: Normal Inspection. Negative for: Edema Neurological: Positive for: GCS=15, CN II-XII Intact, Speech Normal Skin: Positive for: Warm, Dry, Normal Color. Negative for: Rashes Psychiatric: Positive for: Alert, Oriented x 3, Normal Insight, Normal Concentration - Medications Active Medications: Active Medications Generic Name Dose Route Start Last Admin Trade Name Freq PRN Reason Stop Dose Admin Home Med 1 unit 02/24/18 22:00 02/24/18 21:42 Home Med PO 1 unit HS WILIAM Administration Metronidazole 500 mg in 100 mls @ 100 mls/hr 02/24/18 14:00 02/25/18 06:00 Flagyl IVPB 100 mls/hr Q8 WILIAM Administration Protocol Sodium Chloride 1,000 mls @ 70 mls/hr 02/24/18 12:00 02/25/18 06:46 Sodium Chloride 0.9% IV 70 mls/hr .[id number] WILIAM Administration Lisinopril 10 mg 02/24/18 18:00 Zestril PO BID WILIAM Morphine Sulfate 2 mg 02/24/18 11:53 02/25/18 07:14 Morphine IVP 2 mg Q4H PRN Administration Pain, moderate (4-7) Pantoprazole Sodium 40 mg 02/24/18 12:00 02/24/18 14:23 Protonix Inj IVP 40 mg DAILY WILIAM Administration Sertraline HCl 100 mg 02/24/18 11:45 02/24/18 14:23 Zoloft PO 100 mg DAILY WILIAM Administration Timolol Maleate 0 drop 02/24/18 18:00 Timoptic 0.5% Ophth Soln OU BID WILIAM - Patient Studies Lab Studies: Lab Studies 02/25/18 02/25/18 02/25/18 Range/Units 04:18 04:18 00:45 Hgb 9.6 L 10.0 L (12.0-16.0) g/dL Hct 29.3 L 30.7 L (36.0-48.0) % Sodium 139 (132-148) mmol/L Potassium 3.9 (3.6-5.0) mmol/L Chloride 108 H (98-107) mmol/L Carbon Dioxide 27 (21-33) mmol/L Anion Gap 9 L (10-20) BUN 16 (7-21) mg/dL Creatinine 0.7 (0.7-1.2) mg/dl Est GFR ( Amer) > 60 Est GFR (Non-Af Amer) > 60 Random Glucose 104 (70-110) mg/dL Calcium 8.2 L (8.4-10.5) mg/dL Total Bilirubin 0.3 (0.2-1.3) mg/dL AST 21 (14-36) U/L ALT 27 (7-56) U/L Alkaline Phosphatase 113 (38-126) U/L Total Protein 5.2 L (5.8-8.3) g/dL Albumin 2.8 L (3.0-4.8) g/dL Globulin 2.4 gm/dL Albumin/Globulin Ratio 1.2 (1.1-1.8) Blood Type Blood Type Confirm Antibody Screen Crossmatch BBK History Checked 02/25/18 02/24/18 02/24/18 Range/Units 00:45 20:13 14:10 Hgb 10.1 L 11.4 L (12.0-16.0) g/dL Hct 32.0 L 35.1 L (36.0-48.0) % Sodium (132-148) mmol/L Potassium (3.6-5.0) mmol/L Chloride (98-107) mmol/L Carbon Dioxide (21-33) mmol/L Anion Gap (10-20) BUN (7-21) mg/dL Creatinine (0.7-1.2) mg/dl Est GFR ( Amer) Est GFR (Non-Af Amer) Random Glucose (70-110) mg/dL Calcium (8.4-10.5) mg/dL Total Bilirubin (0.2-1.3) mg/dL AST (14-36) U/L ALT (7-56) U/L Alkaline Phosphatase (38-126) U/L Total Protein (5.8-8.3) g/dL Albumin (3.0-4.8) g/dL Globulin gm/dL Albumin/Globulin Ratio (1.1-1.8) Blood Type O POSITIVE Blood Type Confirm Antibody Screen Negative Crossmatch See Detail BBK History Checked Patient has bt 02/24/18 Range/Units 10:25 Hgb (12.0-16.0) g/dL Hct (36.0-48.0) % Sodium (132-148) mmol/L Potassium (3.6-5.0) mmol/L Chloride (98-107) mmol/L Carbon Dioxide (21-33) mmol/L Anion Gap (10-20) BUN (7-21) mg/dL Creatinine (0.7-1.2) mg/dl Est GFR ( Amer) Est GFR (Non-Af Amer) Random Glucose (70-110) mg/dL Calcium (8.4-10.5) mg/dL Total Bilirubin (0.2-1.3) mg/dL AST (14-36) U/L ALT (7-56) U/L Alkaline Phosphatase (38-126) U/L Total Protein (5.8-8.3) g/dL Albumin (3.0-4.8) g/dL Globulin gm/dL Albumin/Globulin Ratio (1.1-1.8) Blood Type Blood Type Confirm O POSITIVE Antibody Screen Crossmatch BBK History Checked Laboratory Results - last 24 hr 02/24/18 02/24/18 02/24/18 10:25 14:10 20:13 Hgb 11.4 L 10.1 L Hct 35.1 L 32.0 L Sodium Potassium Chloride Carbon Dioxide Anion Gap BUN Creatinine Est GFR ( Amer) Est GFR (Non-Af Amer) Random Glucose Calcium Total Bilirubin AST ALT Alkaline Phosphatase Total Protein Albumin Globulin Albumin/Globulin Ratio Blood Type Blood Type Confirm O POSITIVE Antibody Screen Crossmatch BBK History Checked 02/25/18 02/25/18 02/25/18 00:45 00:45 04:18 Hgb 10.0 L 9.6 L Hct 30.7 L 29.3 L Sodium Potassium Chloride Carbon Dioxide Anion Gap BUN Creatinine Est GFR ( Amer) Est GFR (Non-Af Amer) Random Glucose Calcium Total Bilirubin AST ALT Alkaline Phosphatase Total Protein Albumin Globulin Albumin/Globulin Ratio Blood Type O POSITIVE Blood Type Confirm Antibody Screen Negative Crossmatch See Detail BBK History Checked Patient has bt 02/25/18 04:18 Hgb Hct Sodium 139 Potassium 3.9 Chloride 108 H Carbon Dioxide 27 Anion Gap 9 L BUN 16 Creatinine 0.7 Est GFR ( Amer) > 60 Est GFR (Non-Af Amer) > 60 Random Glucose 104 Calcium 8.2 L Total Bilirubin 0.3 AST 21 ALT 27 Alkaline Phosphatase 113 Total Protein 5.2 L Albumin 2.8 L Globulin 2.4 Albumin/Globulin Ratio 1.2 Blood Type Blood Type Confirm Antibody Screen Crossmatch BBK History Checked Review of Systems - Review of Systems All systems: reviewed and no additional remarkable complaints except Review of Systems: As per [facility] Critical Care Progress Note - Nutrition Nutrition: Nutrition Category Date Time Status Liquid Diet [DIET] Diets 02/24/18 Lunch Ordered Assessment/Plan - Assessment and Plan (Free Text) Assessment: 72F admitted to ICU on 02/24 after 3 episodes of hematochezia in TCU Neuro: AAO3 No FNDs Continue monitoring Reorient as necessary Cardio: Normotensive RRR Maintain MAP >65 C/w Lisinopril 10mg BID - HTN Troponin pending in setting of epigastric pain Pulm: Satting well on room air No pulm complaints CTABL GI: No bloody BM since ICU transfer Patient currently on CLD tolerating well GI following; Planning for MRCP at this time Will Consult Gen Surg post MRCP Will DC Flagyl as there is no significant evidence of diverticulitis at this time C/w Protonix IVP PO Maalox for Renal/ : BUN/Cr - 16/0.7 Good urine output Heme: H/H tending down HD Stable ; Asymptomatic Most recent Hb 9.6 Will transfuse if Hb drops 7 and below MSK: L rib fx Morphine 2 Q4 PRN - Moderate Oxydocone 10 one time for break through pain this AM Patient was seen examined and discussed w/ attending physician Dr. Eduard Pastor DO PGY1 - Pager [phone] - Date & Time Date: 02/25/18 (q) Time: 12:09 <Sue Chapa - Last Filed: 02/25/18 15:35> CCU Objective - Vital Signs / Intake & Output Vital Signs (Last 4 hours): Vital Signs Temp Pulse Resp BP Pulse Ox 02/25/18 12:40 66 19 93 L 02/25/18 12:30 68 25 H 88 L 02/25/18 12:20 68 20 93 L 02/25/18 12:10 69 17 93 L 02/25/18 12:00 97.9 F 139/60 02/25/18 11:59 74 15 97 02/25/18 11:50 86 22 100 02/25/18 11:40 79 31 H 99 Intake and Output (Last 8hrs): Intake & Output 02/25/18 02/25/18 02/25/18 06:59 14:59 22:59 Intake Total 1200 Output Total 1200 Balance 0 Weight 162 lb 162 lb Intake: IV 840 Left Wrist 840 Oral 360 Output: Urine 1200 Urethral (Louis) 1200 Other: # Bowel Movements 0 - Medications Active Medications: Active Medications Generic Name Dose Route Start Last Admin Trade Name Freq PRN Reason Stop Dose Admin Bisacodyl 5 mg 02/25/18 18:00 Dulcolax PO 02/25/18 18:01 ONCE ONE Home Med 1 unit 02/24/18 22:00 02/24/18 21:42 Home Med PO 1 unit HS WILIAM Administration Sodium Chloride 1,000 mls @ 70 mls/hr 02/24/18 12:00 02/25/18 06:46 Sodium Chloride 0.9% IV 70 mls/hr .[id number] WILIAM Administration Lisinopril 10 mg 02/24/18 18:00 02/25/18 09:09 Zestril PO 10 mg BID WILIAM Administration Morphine Sulfate 2 mg 02/24/18 11:53 02/25/18 07:14 Morphine IVP 2 mg Q4H PRN Administration Pain, moderate (4-7) Pantoprazole Sodium 40 mg 02/24/18 12:00 02/25/18 09:08 Protonix Inj IVP 40 mg DAILY WILIAM Administration Sertraline HCl 100 mg 02/24/18 11:45 02/25/18 09:11 Zoloft PO 100 mg DAILY WILIAM Administration Timolol Maleate 0 drop 02/24/18 18:00 02/25/18 11:47 Timoptic 0.5% Ophth Soln OU 1 drop BID WILIAM Administration - Patient Studies Lab Studies: Lab Studies 02/25/18 02/25/18 02/25/18 Range/Units 12:00 10:30 08:30 WBC 8.5 D (4.5-11.0) 10^3/ul RBC 3.04 L (3.5-6.1) 10^6/uL Hgb 9.4 L 9.1 L (12.0-16.0) g/dL Hct 28.9 L 27.9 L (36.0-48.0) % MCV 91.8 (80.0-105.0) fl MCH 29.9 (25.0-35.0) pg MCHC 32.6 (31.0-37.0) g/dl RDW 13.9 (11.5-14.5) % Plt Count 199 (120.0-450.0) 10^3/uL MPV 10.1 (7.0-11.0) fl Gran % 63.7 (50.0-68.0) % Lymph % (Auto) 20.5 L (22.0-35.0) % [place] % (Auto) 6.8 H (1.0-6.0) % Eos % (Auto) 8.6 H (1.5-5.0) % Baso % (Auto) 0.4 (0.0-3.0) % Gran # 5.44 (1.4-6.5) Lymph # (Auto) 1.8 (1.2-3.4) [place] # (Auto) 0.6 (0.1-0.6) Eos # (Auto) 0.7 (0.0-0.7) Baso # (Auto) 0.03 (0.0-2.0) K/mm3 Sodium (132-148) mmol/L Potassium (3.6-5.0) mmol/L Chloride (98-107) mmol/L Carbon Dioxide (21-33) mmol/L Anion Gap (10-20) BUN (7-21) mg/dL Creatinine (0.7-1.2) mg/dl Est GFR ( Amer) Est GFR (Non-Af Amer) Random Glucose (70-110) mg/dL Calcium (8.4-10.5) mg/dL Total Bilirubin (0.2-1.3) mg/dL AST (14-36) U/L ALT (7-56) U/L Alkaline Phosphatase (38-126) U/L Troponin I < 0.01 ng/mL Total Protein (5.8-8.3) g/dL Albumin (3.0-4.8) g/dL Globulin gm/dL Albumin/Globulin Ratio (1.1-1.8) Blood Type Antibody Screen Crossmatch BBK History Checked 02/25/18 02/25/18 02/25/18 Range/Units 04:18 04:18 00:45 WBC (4.5-11.0) 10^3/ul RBC (3.5-6.1) 10^6/uL Hgb 9.6 L 10.0 L (12.0-16.0) g/dL Hct 29.3 L 30.7 L (36.0-48.0) % MCV (80.0-105.0) fl MCH (25.0-35.0) pg MCHC (31.0-37.0) g/dl RDW (11.5-14.5) % Plt Count (120.0-450.0) 10^3/uL MPV (7.0-11.0) fl Gran % (50.0-68.0) % Lymph % (Auto) (22.0-35.0) % [place] % (Auto) (1.0-6.0) % Eos % (Auto) (1.5-5.0) % Baso % (Auto) (0.0-3.0) % Gran # (1.4-6.5) Lymph # (Auto) (1.2-3.4) [place] # (Auto) (0.1-0.6) Eos # (Auto) (0.0-0.7) Baso # (Auto) (0.0-2.0) K/mm3 Sodium 139 (132-148) mmol/L Potassium 3.9 (3.6-5.0) mmol/L Chloride 108 H (98-107) mmol/L Carbon Dioxide 27 (21-33) mmol/L Anion Gap 9 L (10-20) BUN 16 (7-21) mg/dL Creatinine 0.7 (0.7-1.2) mg/dl Est GFR ( Amer) > 60 Est GFR (Non-Af Amer) > 60 Random Glucose 104 (70-110) mg/dL Calcium 8.2 L (8.4-10.5) mg/dL Total Bilirubin 0.3 (0.2-1.3) mg/dL AST 21 (14-36) U/L ALT 27 (7-56) U/L Alkaline Phosphatase 113 (38-126) U/L Troponin I ng/mL Total Protein 5.2 L (5.8-8.3) g/dL Albumin 2.8 L (3.0-4.8) g/dL Globulin 2.4 gm/dL Albumin/Globulin Ratio 1.2 (1.1-1.8) Blood Type Antibody Screen Crossmatch BBK History Checked 02/25/18 02/24/18 Range/Units 00:45 20:13 WBC (4.5-11.0) 10^3/ul RBC (3.5-6.1) 10^6/uL Hgb 10.1 L (12.0-16.0) g/dL Hct 32.0 L (36.0-48.0) % MCV (80.0-105.0) fl MCH (25.0-35.0) pg MCHC (31.0-37.0) g/dl RDW (11.5-14.5) % Plt Count (120.0-450.0) 10^3/uL MPV (7.0-11.0) fl Gran % (50.0-68.0) % Lymph % (Auto) (22.0-35.0) % [place] % (Auto) (1.0-6.0) % Eos % (Auto) (1.5-5.0) % Baso % (Auto) (0.0-3.0) % Gran # (1.4-6.5) Lymph # (Auto) (1.2-3.4) [place] # (Auto) (0.1-0.6) Eos # (Auto) (0.0-0.7) Baso # (Auto) (0.0-2.0) K/mm3 Sodium (132-148) mmol/L Potassium (3.6-5.0) mmol/L Chloride (98-107) mmol/L Carbon Dioxide (21-33) mmol/L Anion Gap (10-20) BUN (7-21) mg/dL Creatinine (0.7-1.2) mg/dl Est GFR ( Amer) Est GFR (Non-Af Amer) Random Glucose (70-110) mg/dL Calcium (8.4-10.5) mg/dL Total Bilirubin (0.2-1.3) mg/dL AST (14-36) U/L ALT (7-56) U/L Alkaline Phosphatase (38-126) U/L Troponin I ng/mL Total Protein (5.8-8.3) g/dL Albumin (3.0-4.8) g/dL Globulin gm/dL Albumin/Globulin Ratio (1.1-1.8) Blood Type O POSITIVE Antibody Screen Negative Crossmatch See Detail BBK History Checked Patient has bt Laboratory Results - last 24 hr 02/24/18 02/25/18 02/25/18 20:13 00:45 00:45 WBC RBC Hgb 10.1 L 10.0 L Hct 32.0 L 30.7 L MCV MCH MCHC RDW Plt Count MPV Gran % Lymph % (Auto) [place] % (Auto) Eos % (Auto) Baso % (Auto) Gran # Lymph # (Auto) [place] # (Auto) Eos # (Auto) Baso # (Auto) Sodium Potassium Chloride Carbon Dioxide Anion Gap BUN Creatinine Est GFR ( Amer) Est GFR (Non-Af Amer) Random Glucose Calcium Total Bilirubin AST ALT Alkaline Phosphatase Troponin I Total Protein Albumin Globulin Albumin/Globulin Ratio Blood Type O POSITIVE Antibody Screen Negative Crossmatch See Detail BBK History Checked Patient has bt 02/25/18 02/25/18 02/25/18 04:18 04:18 08:30 WBC 8.5 D RBC 3.04 L Hgb 9.6 L 9.1 L Hct 29.3 L 27.9 L MCV 91.8 MCH 29.9 MCHC 32.6 RDW 13.9 Plt Count 199 MPV 10.1 Gran % 63.7 Lymph % (Auto) 20.5 L [place] % (Auto) 6.8 H Eos % (Auto) 8.6 H Baso % (Auto) 0.4 Gran # 5.44 Lymph # (Auto) 1.8 [place] # (Auto) 0.6 Eos # (Auto) 0.7 Baso # (Auto) 0.03 Sodium 139 Potassium 3.9 Chloride 108 H Carbon Dioxide 27 Anion Gap 9 L BUN 16 Creatinine 0.7 Est GFR ( Amer) > 60 Est GFR (Non-Af Amer) > 60 Random Glucose 104 Calcium 8.2 L Total Bilirubin 0.3 AST 21 ALT 27 Alkaline Phosphatase 113 Troponin I Total Protein 5.2 L Albumin 2.8 L Globulin 2.4 Albumin/Globulin Ratio 1.2 Blood Type Antibody Screen Crossmatch BBK History Checked 02/25/18 02/25/18 10:30 12:00 WBC RBC Hgb 9.4 L Hct 28.9 L MCV MCH MCHC RDW Plt Count MPV Gran % Lymph % (Auto) [place] % (Auto) Eos % (Auto) Baso % (Auto) Gran # Lymph # (Auto) [place] # (Auto) Eos # (Auto) Baso # (Auto) Sodium Potassium Chloride Carbon Dioxide Anion Gap BUN Creatinine Est GFR ( Amer) Est GFR (Non-Af Amer) Random Glucose Calcium Total Bilirubin AST ALT Alkaline Phosphatase Troponin I < 0.01 Total Protein Albumin Globulin Albumin/Globulin Ratio Blood Type Antibody Screen Crossmatch BBK History Checked EKG/Cardiology Studies: Cardiology / EKG Studies 02/25/18 10:26 EKG [ELECTROCARDIOGRAM] Stat Comment: Reason For Exam: epigastric pain Critical Care Progress Note - Nutrition Nutrition: Nutrition Category Date Time Status Liquid Diet [DIET] Diets 02/24/18 Lunch Ordered Addendum Addendum: 02/25/18 15:32 ICU Attending Addendum: Patient seen and examined. Case reviewed on round with housestaff. Agree with resident note above with the following additions/exceptions: 72F with HTN, PUD, OA, CVA, diverticulosis, admitted to the MICU for GI Bleed. Bleeding scan shows lower GIB near rectum. HB stable for now. GI planning colonoscopy tomorrow 02/26 cont home meds PO for now, NPO tonight with prep can stop flagyl as no sign of diverticulitis on CT Rest of care as noted above. Sue Chapa MD Banking Services Clerk
[2018-02-25 08:39] LABS: BASO # 0.03 K/mm3 (0.0-2.0); BASO % 0.4 % (0.0-3.0); EOS # 0.7 (0.0-0.7); EOS % 8.6 % (1.5-5.0); GRAN # 5.44 (1.4-6.5); GRAN % 63.7 % (50.0-68.0); HEMOGLOBIN 9.1 g/dL (12.0-16.0); LYMPH # 1.8 (1.2-3.4); LYMPH % 20.5 % (22.0-35.0); MEAN CELL VOLUME 91.8 fl (80.0-105.0); MEAN CORPUSCULAR HEMOGLOBIN 29.9 pg (25.0-35.0); MEAN CORPUSCULAR HGB CONC 32.6 g/dl (31.0-37.0); MEAN PLATELET VOLUME 10.1 fl (7.0-11.0); MONO # 0.6 (0.1-0.6); MONO % 6.8 % (1.0-6.0); RBC 3.04 10^6/uL (3.5-6.1); RED CELL DISTRIBUTION WIDTH 13.9 % (11.5-14.5); WHITE BLOOD COUNT 8.5 10^3/ul (4.5-11.0)
--- NOTE | 2018-02-25 08:47 | HP ---
DATE OF EXAM: 02/24/2018 HISTORY OF PRESENT ILLNESS: Ms. Scott is a 72-year-old female admitted to Transitional Care Unit after she had a fall and was admitted to the hospital this morning. She has history of rectal bleeding. She had several episodes of rectal bleeding and was transferred to Emergency Room and admitted to the floor. She continues to have bright red blood per rectum. She never had a history of bleeding per rectum. No history of hemorrhoid in the past. She is also complaining of abdominal pain. No nausea. No vomiting. No fever. No cough with expectoration. PAST MEDICAL HISTORY: Hypertension, history of CVA, cataract, history of anemia, diverticulitis, history of cholecystitis, anxiety and depression. PAST SURGICAL HISTORY: Hysterectomy, appendectomy, cholecystectomy, orthopedic surgery. FAMILY HISTORY: Noncontributory. PERSONAL HISTORY: Former smoker. No history of alcohol abuse. ALLERGIES: ATORVASTATIN, PLAVIX, AND NUBAIN. HOME MEDICATIONS: Omeprazole, Eliquis, aspirin, enalapril, and Crestor. REVIEW OF SYSTEMS: As per HPI. Rest of 12-point review of systems reviewed negative. PHYSICAL EXAMINATION: GENERAL: Comfortable in bed, in no acute distress. VITAL SIGNS: Temperature 98.7, heart rate 74 per minute, respiratory rate 19 per minute, blood pressure 125/62, pulse ox is 97% on room air. HEENT: Pallor positive. NECK: No lymphadenopathy. CHEST: Air entry present and equal, bilateral. No added sounds. CARDIOVASCULAR: S1, S2 normal. No murmur. No gallop. ABDOMEN: Soft, nontender. No hepatosplenomegaly. EXTREMITIES: No edema. SKIN: No petechiae. No rash. SPINE: Nontender. LABORATORY DATA: White count 12.4, hemoglobin 13.2, hematocrit 39.8, platelets 239. Sodium 140, potassium 4.3, BUN 21, creatinine 0.7, glucose 116. Repeat hemoglobin dropped to 11 g/dL. ASSESSMENT: 1. Active gastrointestinal bleeding. 2. Drop in hemoglobin and hematocrit. 3. History of recurrent falls. 4. History of hypertension. 5. History of cerebrovascular accident. PLAN: Wet [place], Dr. Kapadia, consulted for evaluation. She will be transferred to ICU for active GI bleeding. Dr. Dowling consulted. IV fluids at 80 mL an hour. IV antibiotic, ceftriaxone 1 g to be given stat, Flagyl 500 mg IV stat and continue every 8 hours. Protonix 40 mg IV b.i.d. Liquid diet. Possible colonoscopy tomorrow by Dr. Dowling. Continue Zoloft 100 mg p.o. daily, lisinopril 10 mg p.o. b.i.d. Discussed with the staff nurse. Discussed with Dr. Kapadia. Charmaine Bey MD
--- NOTE | 2018-02-25 08:52 | CON ---
DATE: 02/24/2018 FINANCE OFFICER CONSULTATION REQUESTING PHYSICIAN: Dr. Bey CHIEF COMPLAINT: The patient presented with active lower GI bleed. HISTORY OF PRESENT ILLNESS: Ms. Scott is a 72-year-old female that initially presented to the hospital for falls and left-sided chest pain, was treated appropriately and transferred to TCU where she was getting rehab and last night had a large bloody bowel movement. She was taken to the ER and admitted to [facility], noted that today the patient has had multiple large bloody bowel movements. Her hemoglobin has decreased from approximately 13 down to in the range of 11 and she was evaluated on the floor and was admitted to the Intensive Care Unit. GI has been consulted and Dr. Dowling has requested a bleeding scan. The patient is awake and alert. No severe abdominal pain, just mild discomfort. No nauseousness or vomiting, but has had repeated episodes of large bloody bowel movements. No fever or chills. PAST MEDICAL HISTORY: Significant for hypertension, osteoarthritis, CVA, chronic anemia and note that the patient is on Eliquis. As per her chart, last dose was given on 02/21/2018. Past medical history is as above. ALLERGIES: SHE HAS ALLERGIES TO LIPITOR, PLAVIX AND NUBAIN. MEDICATIONS: Can be evaluated as per the nurse's intake form. SOCIAL HISTORY: She is a former smoker. No EtOH abuse. No drug abuse. FAMILY HISTORY: Noncontributory. REVIEW OF SYSTEMS: CONSTITUTIONAL: All negative. HEENT: All negative. CARDIOVASCULAR: All negative. RESPIRATORY: All negative. GI: The patient is having the large bloody bowel movements and some mild abdominal discomfort. : All negative. MUSCULOSKELETAL: All negative. HEMATOLOGIC: The patient is anemic. IMMUNOLOGIC: All negative. INTEGRITY: All negative. NEUROPSYCHIATRIC: All negative. PHYSICAL EXAMINATION: VITAL SIGNS: Note that her temperature is 98, pulse is 92, respirations are 20 and BP is 149/66, O2 saturation is 98%. HEENT: Head atraumatic, normocephalic. Eyes reactive to light. Ears, nose and throat seemed to be within normal limits. NECK: Neck is supple. No JVD. No thyroid enlargement or lymph nodes. HEART: Has regular rate and rhythm. Normal S1, S2. LUNGS: Reveal good breath sounds bilaterally. ABDOMEN: Soft. Decreased bowel sounds. There is some tenderness to palpation in the lower abdomen. GENITALIA AND RECTAL: Deferred. MUSCULOSKELETAL: No joint deformities. Note that she does have some tenderness on palpation in the left anterior thoracic region. EXTREMITIES: Reveal no significant edema. NEUROLOGICALLY: She seemed be grossly intact. LABORATORY DATA: As far as laboratories, the patient's white count is 12.4, hemoglobin is 11.4, hematocrit 35.1 with platelets of 239,000. The patient's PT is 16.3, INR is 1.41 and PTT is 33.9. The patient's sodium is 140, potassium 4.3, chloride 104, CO2 of 27 with a BUN of 21, creatinine of 0.7 and a glucose of 116. Her CT scan of abdomen and pelvis reveals that there is hepatic steatosis, normal spleen, no fractures in thoracic spine, extensive left colonic diverticulosis without diverticulitis. Her chest x-ray reveals no acute pulmonary disease. IMPRESSION: As far as my impression, this patient has acute gastrointestinal bleed with anemia, history of diverticulosis. She also carries a diagnosis of hypertension, osteoarthritis, cerebrovascular accident and has had recent falls and trauma to the left chest with chest bruising. There is a question whether there are left-sided rib fractures. PLAN: As far as our plan, the patient has been transferred to the Intensive Care Unit. She is getting a bleeding scan stat as per GI. GI consult was called. The patient's hemoglobin will be followed and monitored closely. She has been typed and screened for packed red blood cells. She will continue metronidazole, morphine for pain, Protonix, normal saline, Zoloft and Zestril and we will continue to treat aggressively along with the other consultants and the primary care doctor. Des Kapadia MD
--- NOTE | 2018-02-25 10:31 | PN ---
DATE: 02/25/2018 SUBJECTIVE: The patient has no complaints of any chest pain. No shortness of breath. She has no abdominal pain. She says she has no signs of bleeding. PHYSICAL EXAMINATION: VITAL SIGNS: Temperature is 97.5, pulse of 71, blood pressure is 100/48, respirations 15. GENERAL: The patient is lying in bed, flat, comfortable. HEENT: No oral lesion. Anicteric sclerae. Moist mucosa. NECK: No JVD, adenopathy, or thyromegaly. CARDIOVASCULAR: S1 and S2, regular. No murmurs, rubs, or gallops. LUNGS: Clear to auscultation bilaterally. No wheeze, rales, or rhonchi. ABDOMEN: Bowel sounds are positive, soft, nontender and nondistended. EXTREMITIES: No cyanosis, clubbing or edema. LABORATORY DATA: Hemoglobin is 9.1. ASSESSMENT: 1. Acute gastrointestinal bleed, resolved. 2. Acute anemia secondary to blood loss. 3. Obese with a body mass index of 32. 4. Left rib fractures. 5. Hypertension. 6. Osteoarthritis. 7. Gait dysfunction. 8. Depression. 9. Dyslipidemia. PLAN: The patient is currently in the ICU. Her hemoglobin is stable. She is on morphine for pain. She is receiving Protonix daily. She is on lisinopril for her hypertension. She is on Zoloft for her depression. The patient has a bleeding scan that has been done is pending. She is being followed by GI with Dr. Dowling. She is on liquid diet. Adolfo Walker MD
[2018-02-25] MEDS ORDERED: Alum-Mag Hydrox-Simethicone Susp (30 mL) PO ONE (11:41)
[2018-02-25 12:35] LABS: HEMOGLOBIN 9.4 g/dL (12.0-16.0)
--- NOTE | 2018-02-25 12:41 | CARD ---
APPROVED REPORT Date of service: 02/25/2018 EKG Measurement Heart [id number] [id number] <Conclusion> Normal sinus rhythm
--- NOTE | 2018-02-25 12:59 | CP.PCM.PN ---
<Julien bYarra - Last Filed: 02/25/18 12:55> Subjective - Date & Time of Evaluation Date of Evaluation: 02/25/18 Time of Evaluation: 12:55 - Subjective Subjective: GI Progress Note for Dr. Dowling's Service- Melvin, PGY2 Patient seen and assessed at bedside. No acute events overnight noted. Patient reports that she is tolerating her clear liquid diet without complications. Patient does endorse mild epigastric discomfort that she believes to be GERD. Patient otherwise currently denies any fevers, chills, N/V/D/C, changes in urine output or any skin changes. Objective - Vital Signs/Intake and Output Vital Signs (last 24 hours): Temp Pulse Resp BP Pulse Ox 97.9 F 66 19 139/60 93 L 02/25/18 12:00 02/25/18 12:40 02/25/18 12:40 02/25/18 12:00 02/25/18 12:40 Intake and Output: 02/25/18 02/25/18 06:59 18:59 Intake Total 1200 Output Total 1200 Balance 0 - Medications Medications: Current Medications Bisacodyl (Dulcolax) 5 mg PO ONCE ONE Stop: 02/25/18 18:01 Home Med (Home Med) 1 unit PO HS [facility] Last Admin: 02/24/18 21:42 Dose: 1 unit Sodium Chloride (Sodium Chloride 0.9%) 1,000 mls @ 70 mls/hr IV .[id number] [facility] Last Admin: 02/25/18 06:46 Dose: 70 mls/hr Lisinopril (Zestril) 10 mg PO BID [facility] Last Admin: 02/25/18 09:09 Dose: 10 mg Morphine Sulfate (Morphine) 2 mg IVP Q4H PRN PRN Reason: Pain, moderate (4-7) Last Admin: 02/25/18 07:14 Dose: 2 mg Pantoprazole Sodium (Protonix Inj) 40 mg IVP DAILY [facility] Last Admin: 02/25/18 09:08 Dose: 40 mg Polyethylene Glycol/Electrolytes (Golytely) 4,000 ml PO ONCE ONE Stop: 02/25/18 15:01 Sertraline HCl (Zoloft) 100 mg PO DAILY [facility] Last Admin: 02/25/18 09:11 Dose: 100 mg Timolol Maleate (Timoptic 0.5% Ophth Soln) 0 drop OU BID [facility] Last Admin: 02/25/18 11:47 Dose: 1 drop - Labs Labs: 02/25/18 12:00 02/25/18 04:18 PT 16.3 SECONDS (9.4-12.5) H 02/24/18 08:00 INR 1.41 02/24/18 08:00 APTT 33.9 Seconds (25.1-36.5) 02/24/18 08:00 - Constitutional Appears: Non-toxic, No Acute Distress - Head Exam Head Exam: ATRAUMATIC - Eye Exam Eye Exam: EOMI - ENT Exam ENT Exam: Mucous Membranes Moist - Neck Exam Neck Exam: Full ROM - Respiratory Exam Respiratory Exam: NORMAL BREATHING PATTERN. absent: Accessory Muscle Use, Respiratory Distress - Cardiovascular Exam Cardiovascular Exam: REGULAR RHYTHM, RRR, +S1, +S2 - GI/Abdominal Exam GI & Abdominal Exam: Soft, Tenderness (Mild diffuse TTP (LLQ/Epigastric localization)), Normal Bowel Sounds. absent: Distended, Firm, Guarding, Rigid, Diminished Bowel Sounds, Hernia, Hyperactive Bowel Sounds, Hypoactive Bowel Sounds, Mass, Organomegaly, Pulsatile Mass, Rebound - Rectal Exam Rectal Exam: Deferred - Extremities Exam Extremities Exam: absent: Calf Tenderness, Pedal Edema - Neurological Exam Neurological Exam: Alert, Awake, Oriented x3 - Psychiatric Exam Psychiatric exam: Normal Affect, Normal Mood - Skin Skin Exam: Dry, Intact, Normal Color, Warm Assessment and Plan - Assessment and Plan (Free Text) Assessment: 72 year old female with a past medical history significant for HTN, PUD, OA, HLD , prior CVA, glaucoma, diverticulosis, anxiety, and depression who presented from TCU with hematochezia. GI was consulted for evaluation of GI hemorrhage. Plan: -Patient to go for colonoscopy tomorrow (02/26) -CT Abdomen/Pelvis and GI Bleeding Scan reviewed -Continue to monitor H/H; Currently stable but overall downtrending over the past 24 hours -Holding anticoagulation at this time -Clear Liquid Diet -Continue PPI daily Patient seen and case discussed with attending, Dr. Dowling. <Billy Dowling V - Last Filed: 02/25/18 23:36> Objective - Vital Signs/Intake and Output Vital Signs (last 24 hours): Temp Pulse Resp BP Pulse Ox 97.6 F 75 16 170/82 H 100 02/25/18 20:00 02/25/18 21:50 02/25/18 21:50 02/25/18 21:00 02/25/18 21:50 Intake and Output: 02/25/18 02/26/18 18:59 06:59 Intake Total 1940 Output Total 725 Balance 1215 - Medications Medications: Current Medications Home Med (Home Med) 1 unit PO HS [facility] Last Admin: 02/25/18 21:36 Dose: 1 unit Sodium Chloride (Sodium Chloride 0.9%) 1,000 mls @ 70 mls/hr IV .[id number] [facility] Last Admin: 02/25/18 21:00 Dose: 70 mls/hr Lisinopril (Zestril) 10 mg PO BID [facility] Last Admin: 02/25/18 17:30 Dose: 10 mg Morphine Sulfate (Morphine) 2 mg IVP Q4H PRN PRN Reason: Pain, moderate (4-7) Last Admin: 02/25/18 22:34 Dose: 2 mg Pantoprazole Sodium (Protonix Inj) 40 mg IVP DAILY [facility] Last Admin: 02/25/18 09:08 Dose: 40 mg Sertraline HCl (Zoloft) 100 mg PO DAILY [facility] Last Admin: 02/25/18 09:11 Dose: 100 mg Timolol Maleate (Timoptic 0.5% Ophth Soln) 0 drop OU BID [facility] Last Admin: 02/25/18 17:31 Dose: 1 drop - Labs Labs: 02/25/18 20:30 02/25/18 04:18 PT 16.3 SECONDS (9.4-12.5) H 02/24/18 08:00 INR 1.41 02/24/18 08:00 APTT 33.9 Seconds (25.1-36.5) 02/24/18 08:00 Attending/Attestation - Attestation I have personally seen and examined this patient.: Yes I have fully participated in the care of the patient.: Yes I have reviewed all pertinent clinical information, including history, physical exam and plan: Yes Notes (Text): This is an addendum to GI followup report dictated by the Wood Fin[employer] Apprentice. The patient was seen and evaluated earlier. Medical records, lab studies, imagings were reviewed. Last 24 hours events reviewed. Agreed with the above treatment plan as outlined in [employer] Apprentice 's notes with the addition of the following Patient comfortable On examination abdomen soft no mass Imaging studies reviewed Scheduled for colonoscopy in a.m. Follow-up hemoglobin 02/25/18 23:35
[2018-02-25] MEDS ORDERED: Peg-Electrolyte Oral Soln 4L (Golytely) PO ONE ×2 (15:00→18:00)
--- NOTE | 2018-02-25 15:01 | NM ---
Date of service: 02/24/2018 PROCEDURE: Nuclear medicine gastrointestinal bleeding scan. HISTORY: rectal bleeding COMPARISON: CT 02/24/2018 TECHNIQUE: 4ccof patient blood was withdrawn and mixed with 21.2mCi of technetium ultra tagged. Images of the abdomen and pelvis were obtained in the anterior projection at 1 min intervals over a period of 45 min. FINDINGS: There is a small focal transient accumulation of radionuclide just below the urinary bladder on frame 78 through 91. This may rule represent a bleed in the distal rectum. Physiologic activity was seen in the heart, liver, spleen and blood vessels. The report concurs with the preliminary [facility] report IMPRESSION: There is a small focal transient accumulation of radionuclide just below the urinary bladder on frame 78 through 91. This may rule represent a bleed in the distal rectum.
--- NOTE | 2018-02-25 16:03 | CARD ---
APPROVED REPORT Date of service: 02/24/2018 EKG Measurement Heart [id number] [id number] <Conclusion> Poor data quality, interpretation may be adversely affected Normal sinus rhythm Prolonged QT Abnormal ECG
[2018-02-25] MEDS ORDERED: Bisacodyl 5mg EC Tab PO ONE (18:00)
[2018-02-25 18:07] LABS: HEMOGLOBIN 10.4 g/dL (12.0-16.0)
[2018-02-25 20:41] LABS: HEMOGLOBIN 9.5 g/dL (12.0-16.0)
[2018-02-25] MEDS: CRESTOR 5 MG PO SCH (21:36)
--- NOTE | 2018-02-26 00:05 | CP.PCM.PN ---
Subjective - Date & Time of Evaluation Date of Evaluation: 02/25/18 Time of Evaluation: 18:00 - Subjective Subjective: Comfortable in bed. No rectal bleeding currently. Hb/HCT dropped to 9.4 from 13gm/dl. Mild abdominal discomfort. Colonoscopy planned for tomorrow. Objective - Vital Signs/Intake and Output Vital Signs (last 24 hours): Temp Pulse Resp BP Pulse Ox 97.6 F 75 16 170/82 H 100 02/25/18 20:00 02/25/18 21:50 02/25/18 21:50 02/25/18 21:00 02/25/18 21:50 Intake and Output: 02/25/18 02/26/18 18:59 06:59 Intake Total 1940 Output Total 725 Balance 1215 - Medications Medications: Current Medications Home Med (Home Med) 1 unit PO HS [facility] Last Admin: 02/25/18 21:36 Dose: 1 unit Sodium Chloride (Sodium Chloride 0.9%) 1,000 mls @ 70 mls/hr IV .[id number] [facility] Last Admin: 02/25/18 21:00 Dose: 70 mls/hr Lisinopril (Zestril) 10 mg PO BID [facility] Last Admin: 02/25/18 17:30 Dose: 10 mg Morphine Sulfate (Morphine) 2 mg IVP Q4H PRN PRN Reason: Pain, moderate (4-7) Last Admin: 02/25/18 22:34 Dose: 2 mg Pantoprazole Sodium (Protonix Inj) 40 mg IVP DAILY [facility] Last Admin: 02/25/18 09:08 Dose: 40 mg Sertraline HCl (Zoloft) 100 mg PO DAILY [facility] Last Admin: 02/25/18 09:11 Dose: 100 mg Timolol Maleate (Timoptic 0.5% Ophth Soln) 0 drop OU BID [facility] Last Admin: 02/25/18 17:31 Dose: 1 drop - Labs Labs: 02/25/18 20:30 02/25/18 04:18 PT 16.3 SECONDS (9.4-12.5) H 02/24/18 08:00 INR 1.41 02/24/18 08:00 APTT 33.9 Seconds (25.1-36.5) 02/24/18 08:00 - Constitutional Appears: Well, Non-toxic - Head Exam Head Exam: ATRAUMATIC, NORMAL INSPECTION - Eye Exam Eye Exam: Normal appearance - ENT Exam ENT Exam: Mucous Membranes Moist, Normal Exam - Neck Exam Neck Exam: Normal Inspection - Respiratory Exam Respiratory Exam: Clear to Ausculation Bilateral, NORMAL BREATHING PATTERN - GI/Abdominal Exam GI & Abdominal Exam: Soft, Normal Bowel Sounds - Extremities Exam Extremities Exam: Normal Inspection - Back Exam Back Exam: NORMAL INSPECTION - Neurological Exam Neurological Exam: Alert, Normal Gait, Oriented x3 - Skin Skin Exam: Normal Color, Warm Assessment and Plan - Assessment and Plan (Free Text) Assessment: 1. GI bleed : colonoscopy planned for tomorrow. 2. Hb/Hct dropped to 9.4 from 13 gm/dl. Monitor Hb/Hct Q 8 hrs. PRBC as needed. 3. On protonix. 4. Coags normal. aspirin, plavix, eliquis on hold. Thank you DR. Gasca for allowing us to participate in her care.
[2018-02-26 01:32] LABS: HEMOGLOBIN 9.2 g/dL (12.0-16.0); MEAN CELL VOLUME 90.5 fl (80.0-105.0); MEAN CORPUSCULAR HEMOGLOBIN 30.2 pg (25.0-35.0); MEAN CORPUSCULAR HGB CONC 33.3 g/dl (31.0-37.0); MEAN PLATELET VOLUME 10.3 fl (7.0-11.0); RBC 3.05 10^6/uL (3.5-6.1); RED CELL DISTRIBUTION WIDTH 13.5 % (11.5-14.5); WHITE BLOOD COUNT 9.5 10^3/ul (4.5-11.0)
[2018-02-26] MEDS ORDERED: Metoprolol 1 mg/ml Inj IVP STA (05:21)
[2018-02-26] MEDS: Morphine 2 mg/ml ISec IVP PRN ×3 (06:43→22:50)
[2018-02-26] MEDS: Sodium Chloride 0.9% 1,000 ML IV SCH ×2 (07:00→21:38)
[2018-02-26 07:15] LABS: BASO # 0.04 K/mm3 (0.0-2.0); BASO % 0.4 % (0.0-3.0); EOS # 0.9 (0.0-0.7); EOS % 9.4 % (1.5-5.0); GRAN # 6.22 (1.4-6.5); GRAN % 64.9 % (50.0-68.0); HEMOGLOBIN 8.9 g/dL (12.0-16.0); INR 1.14; LYMPH # 1.7 (1.2-3.4); LYMPH % 18.1 % (22.0-35.0); MEAN CELL VOLUME 91.1 fl (80.0-105.0); MEAN CORPUSCULAR HEMOGLOBIN 29.5 pg (25.0-35.0); MEAN CORPUSCULAR HGB CONC 32.4 g/dl (31.0-37.0); MEAN PLATELET VOLUME 10.5 fl (7.0-11.0); MONO # 0.7 (0.1-0.6); MONO % 7.2 % (1.0-6.0); PARTIAL THROMBOPLASTIN TIME 31.7 Seconds (25.1-36.5); PROTHROMBIN TIME 13.2 SECONDS (9.4-12.5); RBC 3.02 10^6/uL (3.5-6.1); RED CELL DISTRIBUTION WIDTH 13.7 % (11.5-14.5); WHITE BLOOD COUNT 9.6 10^3/ul (4.5-11.0)
[2018-02-26 07:45] LABS: ALB/GLOB RATIO 1.2 (1.1-1.8); ALT/SGPT 24 U/L (7-56); AST/SGOT 28 U/L (14-36); BLOOD UREA NITROGEN 11 mg/dL (7-21); CALCIUM 8.3 mg/dL (8.4-10.5); GFR NON-AFRICAN AMERICAN > 60
--- NOTE | 2018-02-26 08:40 | CP.PCM.PN ---
Subjective - Date & Time of Evaluation Date of Evaluation: 02/26/18 Time of Evaluation: 07:00 - Subjective Subjective: General Surgery note for Dr. Roberts Patient seen and examined at the bedside this AM. Patient had multiple bowel movements with bright red blood but denies nausea and vomiting, reports persistent LLQ pain. Objective - Vital Signs/Intake and Output Vital Signs (last 24 hours): Temp Pulse Resp BP Pulse Ox 97.8 F 82 39 H 160/85 H 84 L 02/26/18 04:00 02/26/18 08:00 02/26/18 08:00 02/26/18 08:00 02/26/18 08:00 Intake and Output: 02/26/18 02/26/18 06:59 18:59 Intake Total 2000 Output Total 1100 Balance 900 - Medications Medications: Current Medications Home Med (Home Med) 1 unit PO HS [facility] Last Admin: 02/25/18 21:36 Dose: 1 unit Sodium Chloride (Sodium Chloride 0.9%) 1,000 mls @ 70 mls/hr IV .[id number] [facility] Last Admin: 02/25/18 21:00 Dose: 70 mls/hr Lisinopril (Zestril) 10 mg PO BID [facility] Last Admin: 02/25/18 17:30 Dose: 10 mg Morphine Sulfate (Morphine) 2 mg IVP Q4H PRN PRN Reason: Pain, moderate (4-7) Last Admin: 02/26/18 06:43 Dose: 2 mg Pantoprazole Sodium (Protonix Inj) 40 mg IVP DAILY [facility] Last Admin: 02/25/18 09:08 Dose: 40 mg Sertraline HCl (Zoloft) 100 mg PO DAILY [facility] Last Admin: 02/25/18 09:11 Dose: 100 mg Timolol Maleate (Timoptic 0.5% Ophth Soln) 0 drop OU BID [facility] Last Admin: 02/25/18 17:31 Dose: 1 drop - Labs Labs: 02/26/18 06:55 02/26/18 06:55 PT 13.2 SECONDS (9.4-12.5) H 02/26/18 06:55 INR 1.14 02/26/18 06:55 APTT 31.7 Seconds (25.1-36.5) 02/26/18 06:55 - Constitutional Appears: Well, Non-toxic, No Acute Distress - Head Exam Head Exam: ATRAUMATIC, NORMOCEPHALIC - Eye Exam Eye Exam: Normal appearance. absent: Conjunctival injection, Scleral icterus - ENT Exam ENT Exam: Mucous Membranes Moist, Normal Oropharynx - Respiratory Exam Respiratory Exam: NORMAL BREATHING PATTERN. absent: Accessory Muscle Use, Respiratory Distress - Cardiovascular Exam Cardiovascular Exam: RRR - GI/Abdominal Exam GI & Abdominal Exam: Soft, Tenderness (LLQ tenderness). absent: Distended, Rebound - Extremities Exam Extremities Exam: absent: Calf Tenderness, Pedal Edema - Neurological Exam Neurological Exam: Alert, Awake, Oriented x3 - Psychiatric Exam Psychiatric exam: Normal Affect, Normal Mood - Skin Skin Exam: Dry, Normal Color, Warm Assessment and Plan - Assessment and Plan (Free Text) Assessment: 72F with GI bleed, likely lower GI bleed Plan: Continue to trend H/H and transfuse as needed F/U GI recs--will f/u colonoscopy today Diet management per GI Hold antiplatelets and blood thinners No indication for surgical intervention at this time--will continue to follow with you Discussed with Dr. Roberts, further recs per him Lizet Dill PGY2
--- NOTE | 2018-02-26 11:41 | CP.CCUPN ---
<Denis Pastor - Last Filed: 02/26/18 11:57> CCU Subjective - Physician Review Subjective (Free Text): Denis Pastor DO PGY1 - Internal Medicine Living Supervisor - ICU Progress Note Patient was seen and evaluated at bedside this AM; No acute events reported overnight; Patient complaining of heart burn, headache, and abd cramping this AM Patient also had bloody BM overnight. Remainder of 12 system ROS is negative at this time. 02/26/18 11:41 CCU Objective - Vital Signs / Intake & Output Vital Signs (Last 4 hours): Vital Signs Pulse Resp BP Pulse Ox 02/26/18 09:42 84 163/79 H 02/26/18 08:00 82 39 H 160/85 H 84 L 02/26/18 07:50 77 18 99 02/26/18 07:40 77 20 99 Intake and Output (Last 8hrs): Intake & Output 02/25/18 02/26/18 02/26/18 22:59 06:59 14:59 Intake Total 1940 2000 Output Total 725 1100 Balance 1215 900 Intake: IV 880 900 Left Forearm 870 Right Forearm 10 900 Oral 1060 1100 Output: Urine 725 1100 Urethral (Louis) 725 1100 Other: # Bowel Movements 3 9 - Physical Exam Head: Positive for: Atraumatic, Normocephalic Pupils: Positive for: PERRL Extroacular Muscles: Positive for: EOMI Conjunctiva: Positive for: Normal Mouth: Positive for: Moist Mucous Membranes Neck: Positive for: Normal Range of Motion Respiratory/Chest: Positive for: Clear to Auscultation, Good Air Exchange, Other (ecchymosis left breast). Negative for: Respiratory Distress, Accessory Muscle Use Cardiovascular: Positive for: Regular Rate and Rhythm, Normal S1, S2. Negative for: Murmurs Abdomen: Positive for: Tenderness (LLQ; Epigastric ). Negative for: Distention , Peritoneal Signs Back: Positive for: Normal Inspection Upper Extremity: Positive for: Normal Inspection. Negative for: Cyanosis, Edema Lower Extremity: Positive for: Normal Inspection. Negative for: Edema Neurological: Positive for: GCS=15, CN II-XII Intact, Speech Normal Skin: Positive for: Warm, Dry, Normal Color. Negative for: Rashes Psychiatric: Positive for: Alert, Oriented x 3, Normal Insight, Normal Concentration - Medications Active Medications: Active Medications Generic Name Dose Route Start Last Admin Trade Name Freq PRN Reason Stop Dose Admin Home Med 1 unit 02/24/18 22:00 02/25/18 21:36 Home Med PO 1 unit HS WILIAM Administration Sodium Chloride 1,000 mls @ 70 mls/hr 02/24/18 12:00 02/26/18 07:00 Sodium Chloride 0.9% IV 70 mls/hr .[id number] WILIAM Administration Lisinopril 10 mg 02/24/18 18:00 02/26/18 09:42 Zestril PO 10 mg BID WILIAM Administration Morphine Sulfate 2 mg 02/24/18 11:53 02/26/18 06:43 Morphine IVP 2 mg Q4H PRN Administration Pain, moderate (4-7) Pantoprazole Sodium 40 mg 02/24/18 12:00 02/26/18 09:46 Protonix Inj IVP 40 mg DAILY WILIAM Administration Sertraline HCl 100 mg 02/24/18 11:45 02/26/18 09:46 Zoloft PO 100 mg DAILY WILIAM Administration Timolol Maleate 0 drop 02/24/18 18:00 02/26/18 09:52 Timoptic 0.5% Ophth Soln OU 2 drop BID WILIAM Administration - Patient Studies Lab Studies: Microbiology Studies 02/24/18 17:10 MRSA Culture (Admit) - Final Naris MRSA NOT DETECTED Lab Studies 02/26/18 02/26/18 02/26/18 Range/Units 06:55 06:55 06:55 WBC 9.6 (4.5-11.0) 10^3/ul RBC 3.02 L (3.5-6.1) 10^6/uL Hgb 8.9 L (12.0-16.0) g/dL Hct 27.5 L (36.0-48.0) % MCV 91.1 (80.0-105.0) fl MCH 29.5 (25.0-35.0) pg MCHC 32.4 (31.0-37.0) g/dl RDW 13.7 (11.5-14.5) % Plt Count 219 (120.0-450.0) 10^3/uL MPV 10.5 (7.0-11.0) fl Gran % 64.9 (50.0-68.0) % Lymph % (Auto) 18.1 L (22.0-35.0) % Jefferson % (Auto) 7.2 H (1.0-6.0) % Eos % (Auto) 9.4 H (1.5-5.0) % Baso % (Auto) 0.4 (0.0-3.0) % Gran # 6.22 (1.4-6.5) Lymph # (Auto) 1.7 (1.2-3.4) Jefferson # (Auto) 0.7 H (0.1-0.6) Eos # (Auto) 0.9 H (0.0-0.7) Baso # (Auto) 0.04 (0.0-2.0) K/mm3 PT 13.2 H (9.4-12.5) SECONDS INR 1.14 APTT 31.7 (25.1-36.5) Seconds Sodium 142 (132-148) mmol/L Potassium 3.8 (3.6-5.0) mmol/L Chloride 109 H (98-107) mmol/L Carbon Dioxide 28 (21-33) mmol/L Anion Gap 9 L (10-20) BUN 11 (7-21) mg/dL Creatinine 0.6 L (0.7-1.2) mg/dl Est GFR ( Amer) > 60 Est GFR (Non-Af Amer) > 60 Random Glucose 112 H (70-110) mg/dL Calcium 8.3 L (8.4-10.5) mg/dL Total Bilirubin 0.2 (0.2-1.3) mg/dL AST 28 (14-36) U/L ALT 24 (7-56) U/L Alkaline Phosphatase 121 (38-126) U/L Total Protein 5.4 L (5.8-8.3) g/dL Albumin 3.0 (3.0-4.8) g/dL Globulin 2.4 gm/dL Albumin/Globulin Ratio 1.2 (1.1-1.8) 02/26/18 02/25/18 02/25/18 Range/Units 01:22 20:30 17:45 WBC 9.5 (4.5-11.0) 10^3/ul RBC 3.05 L (3.5-6.1) 10^6/uL Hgb 9.2 L 9.5 L 10.4 L (12.0-16.0) g/dL Hct 27.6 L 29.4 L 32.1 L (36.0-48.0) % MCV 90.5 (80.0-105.0) fl MCH 30.2 (25.0-35.0) pg MCHC 33.3 (31.0-37.0) g/dl RDW 13.5 (11.5-14.5) % Plt Count 205 (120.0-450.0) 10^3/uL MPV 10.3 (7.0-11.0) fl Gran % (50.0-68.0) % Lymph % (Auto) (22.0-35.0) % Jefferson % (Auto) (1.0-6.0) % Eos % (Auto) (1.5-5.0) % Baso % (Auto) (0.0-3.0) % Gran # (1.4-6.5) Lymph # (Auto) (1.2-3.4) Jefferson # (Auto) (0.1-0.6) Eos # (Auto) (0.0-0.7) Baso # (Auto) (0.0-2.0) K/mm3 PT (9.4-12.5) SECONDS INR APTT (25.1-36.5) Seconds Sodium (132-148) mmol/L Potassium (3.6-5.0) mmol/L Chloride (98-107) mmol/L Carbon Dioxide (21-33) mmol/L Anion Gap (10-20) BUN (7-21) mg/dL Creatinine (0.7-1.2) mg/dl Est GFR ( Amer) Est GFR (Non-Af Amer) Random Glucose (70-110) mg/dL Calcium (8.4-10.5) mg/dL Total Bilirubin (0.2-1.3) mg/dL AST (14-36) U/L ALT (7-56) U/L Alkaline Phosphatase (38-126) U/L Total Protein (5.8-8.3) g/dL Albumin (3.0-4.8) g/dL Globulin gm/dL Albumin/Globulin Ratio (1.1-1.8) 02/25/18 Range/Units 12:00 WBC (4.5-11.0) 10^3/ul RBC (3.5-6.1) 10^6/uL Hgb 9.4 L (12.0-16.0) g/dL Hct 28.9 L (36.0-48.0) % MCV (80.0-105.0) fl MCH (25.0-35.0) pg MCHC (31.0-37.0) g/dl RDW (11.5-14.5) % Plt Count (120.0-450.0) 10^3/uL MPV (7.0-11.0) fl Gran % (50.0-68.0) % Lymph % (Auto) (22.0-35.0) % Jefferson % (Auto) (1.0-6.0) % Eos % (Auto) (1.5-5.0) % Baso % (Auto) (0.0-3.0) % Gran # (1.4-6.5) Lymph # (Auto) (1.2-3.4) Jefferson # (Auto) (0.1-0.6) Eos # (Auto) (0.0-0.7) Baso # (Auto) (0.0-2.0) K/mm3 PT (9.4-12.5) SECONDS INR APTT (25.1-36.5) Seconds Sodium (132-148) mmol/L Potassium (3.6-5.0) mmol/L Chloride (98-107) mmol/L Carbon Dioxide (21-33) mmol/L Anion Gap (10-20) BUN (7-21) mg/dL Creatinine (0.7-1.2) mg/dl Est GFR ( Amer) Est GFR (Non-Af Amer) Random Glucose (70-110) mg/dL Calcium (8.4-10.5) mg/dL Total Bilirubin (0.2-1.3) mg/dL AST (14-36) U/L ALT (7-56) U/L Alkaline Phosphatase (38-126) U/L Total Protein (5.8-8.3) g/dL Albumin (3.0-4.8) g/dL Globulin gm/dL Albumin/Globulin Ratio (1.1-1.8) Laboratory Results - last 24 hr 02/25/18 02/25/18 02/25/18 12:00 17:45 20:30 WBC RBC Hgb 9.4 L 10.4 L 9.5 L Hct 28.9 L 32.1 L 29.4 L MCV MCH MCHC RDW Plt Count MPV Gran % Lymph % (Auto) Jefferson % (Auto) Eos % (Auto) Baso % (Auto) Gran # Lymph # (Auto) Jefferson # (Auto) Eos # (Auto) Baso # (Auto) PT INR APTT Sodium Potassium Chloride Carbon Dioxide Anion Gap BUN Creatinine Est GFR ( Amer) Est GFR (Non-Af Amer) Random Glucose Calcium Total Bilirubin AST ALT Alkaline Phosphatase Total Protein Albumin Globulin Albumin/Globulin Ratio 02/26/18 02/26/18 02/26/18 01:22 06:55 06:55 WBC 9.5 9.6 RBC 3.05 L 3.02 L Hgb 9.2 L 8.9 L Hct 27.6 L 27.5 L MCV 90.5 91.1 MCH 30.2 29.5 MCHC 33.3 32.4 RDW 13.5 13.7 Plt Count 205 219 MPV 10.3 10.5 Gran % 64.9 Lymph % (Auto) 18.1 L Jefferson % (Auto) 7.2 H Eos % (Auto) 9.4 H Baso % (Auto) 0.4 Gran # 6.22 Lymph # (Auto) 1.7 Jefferson # (Auto) 0.7 H Eos # (Auto) 0.9 H Baso # (Auto) 0.04 PT 13.2 H INR 1.14 APTT 31.7 Sodium Potassium Chloride Carbon Dioxide Anion Gap BUN Creatinine Est GFR ( Amer) Est GFR (Non-Af Amer) Random Glucose Calcium Total Bilirubin AST ALT Alkaline Phosphatase Total Protein Albumin Globulin Albumin/Globulin Ratio 02/26/18 06:55 WBC RBC Hgb Hct MCV MCH MCHC RDW Plt Count MPV Gran % Lymph % (Auto) Jefferson % (Auto) Eos % (Auto) Baso % (Auto) Gran # Lymph # (Auto) Jefferson # (Auto) Eos # (Auto) Baso # (Auto) PT INR APTT Sodium 142 Potassium 3.8 Chloride 109 H Carbon Dioxide 28 Anion Gap 9 L BUN 11 Creatinine 0.6 L Est GFR ( Amer) > 60 Est GFR (Non-Af Amer) > 60 Random Glucose 112 H Calcium 8.3 L Total Bilirubin 0.2 AST 28 ALT 24 Alkaline Phosphatase 121 Total Protein 5.4 L Albumin 3.0 Globulin 2.4 Albumin/Globulin Ratio 1.2 Review of Systems - Review of Systems All systems: reviewed and no additional remarkable complaints except Review of Systems: as per hpi Critical Care Progress Note - Nutrition Nutrition: Nutrition Category Date Time Status NPO Diet [DIET] Diets 02/26/18 Breakfast Ordered Assessment/Plan - Assessment and Plan (Free Text) Assessment: 72F admitted to ICU on 02/24 after 3 episodes of hematochezia in TCU Neuro: AAO3 No FNDs Continue monitoring Reorient as necessary Cardio: Normotensive RRR Maintain MAP >65 C/w Lisinopril 10mg BID - HTN Troponin negative Pulm: Satting well on room air No pulm complaints CTABL GI: Patient has had bloody BMs while in ICU Bleeding scan shows bleed located near rectum NPO for now will undergo colonoscopy this afternoon No evidence of diverticulitis on CTAP C/w Protonix IVP Renal/ : BUN/Cr - 16/0.7 Good urine output Heme: H/H tending down Hb this AM 8.9 Transfuse 2U per gen surg HD Stable ; Asymptomatic MSK: L rib fx Morphine 2 Q4 PRN - Moderate Patient was seen examined and discussed w/ attending physician Dr. Eduard Pastor DO PGY1 - Pager [phone] - Date & Time Date: 02/26/18 Time: 11:56 <Sue Chapa - Last Filed: 02/26/18 14:18> CCU Objective - Vital Signs / Intake & Output Vital Signs (Last 4 hours): Vital Signs Temp Pulse Resp BP Pulse Ox 02/26/18 14:03 97.5 F L 86 20 149/58 L 02/26/18 13:47 97.8 F 88 20 156/79 H 02/26/18 12:00 170/66 H 02/26/18 11:59 82 19 99 02/26/18 11:50 81 18 100 02/26/18 11:45 183/64 H 02/26/18 11:44 80 26 H 100 02/26/18 11:40 80 16 208/86 H 100 02/26/18 11:37 79 210/99 H 02/26/18 11:30 81 100 02/26/18 11:27 80 15 210/99 H 99 02/26/18 11:20 79 13 100 02/26/18 11:15 81 17 226/87 H 100 02/26/18 11:10 79 21 100 02/26/18 11:01 81 18 222/99 H 100 02/26/18 11:00 80 12 100 02/26/18 10:50 84 26 H 99 02/26/18 10:40 82 100 02/26/18 10:30 80 17 99 02/26/18 10:20 76 26 H 98 Intake and Output (Last 8hrs): Intake & Output 02/25/18 02/26/18 02/26/18 22:59 06:59 14:59 Intake Total 1940 2000 0 Output Total 725 1100 Balance 1215 900 0 Weight 160 lb Intake: IV 880 900 Left Forearm 870 Right Forearm 10 900 Oral 1060 1100 Blood Product 0 Red Blood Cells Cpd As1 0 Lr Unit [id number] Output: Urine 725 1100 Urethral (Louis) 725 1100 Other: # Bowel Movements 3 9 - Medications Active Medications: Active Medications Generic Name Dose Route Start Last Admin Trade Name Freq PRN Reason Stop Dose Admin Home Med 1 unit 02/24/18 22:00 02/25/18 21:36 Home Med PO 1 unit HS WILIAM Administration Sodium Chloride 1,000 mls @ 70 mls/hr 02/24/18 12:00 02/26/18 07:00 Sodium Chloride 0.9% IV 70 mls/hr .[id number] WILIAM Administration Lisinopril 10 mg 02/24/18 18:00 02/26/18 09:42 Zestril PO 10 mg BID WILIAM Administration Morphine Sulfate 2 mg 02/24/18 11:53 02/26/18 06:43 Morphine IVP 2 mg Q4H PRN Administration Pain, moderate (4-7) Pantoprazole Sodium 40 mg 02/24/18 12:00 02/26/18 09:46 Protonix Inj IVP 40 mg DAILY WILIAM Administration Sertraline HCl 100 mg 02/24/18 11:45 02/26/18 09:46 Zoloft PO 100 mg DAILY WILIAM Administration Timolol Maleate 0 drop 02/24/18 18:00 02/26/18 09:52 Timoptic 0.5% Ophth Soln OU 2 drop BID WILIAM Administration - Patient Studies Lab Studies: Microbiology Studies 02/24/18 17:10 MRSA Culture (Admit) - Final Naris MRSA NOT DETECTED Lab Studies 02/26/18 02/26/18 02/26/18 Range/Units 06:55 06:55 06:55 WBC 9.6 (4.5-11.0) 10^3/ul RBC 3.02 L (3.5-6.1) 10^6/uL Hgb 8.9 L (12.0-16.0) g/dL Hct 27.5 L (36.0-48.0) % MCV 91.1 (80.0-105.0) fl MCH 29.5 (25.0-35.0) pg MCHC 32.4 (31.0-37.0) g/dl RDW 13.7 (11.5-14.5) % Plt Count 219 (120.0-450.0) 10^3/uL MPV 10.5 (7.0-11.0) fl Gran % 64.9 (50.0-68.0) % Lymph % (Auto) 18.1 L (22.0-35.0) % Jefferson % (Auto) 7.2 H (1.0-6.0) % Eos % (Auto) 9.4 H (1.5-5.0) % Baso % (Auto) 0.4 (0.0-3.0) % Gran # 6.22 (1.4-6.5) Lymph # (Auto) 1.7 (1.2-3.4) Jefferson # (Auto) 0.7 H (0.1-0.6) Eos # (Auto) 0.9 H (0.0-0.7) Baso # (Auto) 0.04 (0.0-2.0) K/mm3 PT 13.2 H (9.4-12.5) SECONDS INR 1.14 APTT 31.7 (25.1-36.5) Seconds Sodium 142 (132-148) mmol/L Potassium 3.8 (3.6-5.0) mmol/L Chloride 109 H (98-107) mmol/L Carbon Dioxide 28 (21-33) mmol/L Anion Gap 9 L (10-20) BUN 11 (7-21) mg/dL Creatinine 0.6 L (0.7-1.2) mg/dl Est GFR ( Amer) > 60 Est GFR (Non-Af Amer) > 60 Random Glucose 112 H (70-110) mg/dL Calcium 8.3 L (8.4-10.5) mg/dL Total Bilirubin 0.2 (0.2-1.3) mg/dL AST 28 (14-36) U/L ALT 24 (7-56) U/L Alkaline Phosphatase 121 (38-126) U/L Total Protein 5.4 L (5.8-8.3) g/dL Albumin 3.0 (3.0-4.8) g/dL Globulin 2.4 gm/dL Albumin/Globulin Ratio 1.2 (1.1-1.8) 02/26/18 02/25/18 02/25/18 Range/Units 01:22 20:30 17:45 WBC 9.5 (4.5-11.0) 10^3/ul RBC 3.05 L (3.5-6.1) 10^6/uL Hgb 9.2 L 9.5 L 10.4 L (12.0-16.0) g/dL Hct 27.6 L 29.4 L 32.1 L (36.0-48.0) % MCV 90.5 (80.0-105.0) fl MCH 30.2 (25.0-35.0) pg MCHC 33.3 (31.0-37.0) g/dl RDW 13.5 (11.5-14.5) % Plt Count 205 (120.0-450.0) 10^3/uL MPV 10.3 (7.0-11.0) fl Gran % (50.0-68.0) % Lymph % (Auto) (22.0-35.0) % Jefferson % (Auto) (1.0-6.0) % Eos % (Auto) (1.5-5.0) % Baso % (Auto) (0.0-3.0) % Gran # (1.4-6.5) Lymph # (Auto) (1.2-3.4) Jefferson # (Auto) (0.1-0.6) Eos # (Auto) (0.0-0.7) Baso # (Auto) (0.0-2.0) K/mm3 PT (9.4-12.5) SECONDS INR APTT (25.1-36.5) Seconds Sodium (132-148) mmol/L Potassium (3.6-5.0) mmol/L Chloride (98-107) mmol/L Carbon Dioxide (21-33) mmol/L Anion Gap (10-20) BUN (7-21) mg/dL Creatinine (0.7-1.2) mg/dl Est GFR ( Amer) Est GFR (Non-Af Amer) Random Glucose (70-110) mg/dL Calcium (8.4-10.5) mg/dL Total Bilirubin (0.2-1.3) mg/dL AST (14-36) U/L ALT (7-56) U/L Alkaline Phosphatase (38-126) U/L Total Protein (5.8-8.3) g/dL Albumin (3.0-4.8) g/dL Globulin gm/dL Albumin/Globulin Ratio (1.1-1.8) Laboratory Results - last 24 hr 02/25/18 02/25/18 02/26/18 17:45 20:30 01:22 WBC 9.5 RBC 3.05 L Hgb 10.4 L 9.5 L 9.2 L Hct 32.1 L 29.4 L 27.6 L MCV 90.5 MCH 30.2 MCHC 33.3 RDW 13.5 Plt Count 205 MPV 10.3 Gran % Lymph % (Auto) Jefferson % (Auto) Eos % (Auto) Baso % (Auto) Gran # Lymph # (Auto) Jefferson # (Auto) Eos # (Auto) Baso # (Auto) PT INR APTT Sodium Potassium Chloride Carbon Dioxide Anion Gap BUN Creatinine Est GFR ( Amer) Est GFR (Non-Af Amer) Random Glucose Calcium Total Bilirubin AST ALT Alkaline Phosphatase Total Protein Albumin Globulin Albumin/Globulin Ratio 02/26/18 02/26/18 02/26/18 06:55 06:55 06:55 WBC 9.6 RBC 3.02 L Hgb 8.9 L Hct 27.5 L MCV 91.1 MCH 29.5 MCHC 32.4 RDW 13.7 Plt Count 219 MPV 10.5 Gran % 64.9 Lymph % (Auto) 18.1 L Jefferson % (Auto) 7.2 H Eos % (Auto) 9.4 H Baso % (Auto) 0.4 Gran # 6.22 Lymph # (Auto) 1.7 Jefferson # (Auto) 0.7 H Eos # (Auto) 0.9 H Baso # (Auto) 0.04 PT 13.2 H INR 1.14 APTT 31.7 Sodium 142 Potassium 3.8 Chloride 109 H Carbon Dioxide 28 Anion Gap 9 L BUN 11 Creatinine 0.6 L Est GFR ( Amer) > 60 Est GFR (Non-Af Amer) > 60 Random Glucose 112 H Calcium 8.3 L Total Bilirubin 0.2 AST 28 ALT 24 Alkaline Phosphatase 121 Total Protein 5.4 L Albumin 3.0 Globulin 2.4 Albumin/Globulin Ratio 1.2 Critical Care Progress Note - Nutrition Nutrition: Nutrition Category Date Time Status NPO Diet [DIET] Diets 02/26/18 Breakfast Ordered Addendum Addendum: 02/26/18 14:17 ICU Attending Addendum: Patient seen and examined. Case reviewed on round with housestaff. Agree with resident note above with the following additions/exceptions: 72F with HTN, PUD, OA, CVA, diverticulosis, admitted to the MICU for GI Bleed. Bleeding scan shows lower GIB near rectum. HB stable for now. GI planning colonoscopy today had some bleeding per rectume last night HB stable hemodynamically stable would hold off on transfusing PRBC as HB is > 7 and now dropping acutely over the past 24 hours in addition, volume of blood loss currently does not appear to be very large can stop flagyl as no sign of diverticulitis on CT Rest of care as noted above. Sue Chapa MD Adaptive [employer] Education Teacher
[2018-02-26] MEDS ORDERED: Vitamins A & D Oint UD Foilpak TOP PRN (15:09)
[2018-02-26] MEDS ORDERED: Propofol 10 mg/ml Inj (20 ML) ONE (19:42)
[2018-02-26] MEDS: CRESTOR 5 MG PO SCH (22:46)
[2018-02-26] MEDS ORDERED: Metoprolol 1 mg/ml Inj IVP PRN (22:52)
--- NOTE | 2018-02-26 23:05 | PN ---
DATE: 02/26/2018 SUBJECTIVE: The patient has no complaints of any chest pain. No shortness of breath. No headaches or dizziness. PHYSICAL EXAMINATION: VITAL SIGNS: Temperature is 97.8, pulse of 87, blood pressure is 194/83, respirations 20. GENERAL: The patient is lying in bed, flat, comfortable. HEENT: No oral lesion. Anicteric sclerae. Moist mucosa. NECK: No JVD, adenopathy, or thyromegaly. CARDIOVASCULAR: S1 and S2, regular. No murmurs, rubs, or gallops. LUNGS: Clear to auscultation bilaterally. No wheeze, rales, or rhonchi. ABDOMEN: Bowel sounds are positive, soft, nontender and nondistended. EXTREMITIES: No cyanosis, clubbing or edema. LABORATORY DATA: White count of 9.6, hemoglobin 8.9. Creatinine is 0.6. ASSESSMENT: 1. Gastrointestinal bleed. 2. Acute anemia secondary to blood loss. 3. Obesity with a body mass index of 32. 4. Hypertension. 5. Osteoarthritis. 6. Gait dysfunction. 7. Depression. 8. Dyslipidemia. 9. Diverticulosis. 10. Hemorrhoids. PLAN: The patient had endoscopy and colonoscopy. I did speak to Dr. Dowling regarding the case. The patient did have diverticulosis and also hemorrhoids. This may be the cause of the patient's bleeding. The patient has the hemoglobin that has been stable. Last hemoglobin was 8.9. The patient will have an another CBC done tomorrow. Patient is on IV fluids. Currently n.p.o. I will discontinue the patient's IV fluids. Placed the patient back on a clear liquid diet for the breakfast and slowly advance. On further review of the patient's records, I do not see sign of rib fractures. Adolfo Walker MD
[2018-02-27 06:13] LABS: BASO # 0.03 K/mm3 (0.0-2.0); BASO % 0.2 % (0.0-3.0); EOS # 0.6 (0.0-0.7); EOS % 4.9 % (1.5-5.0); GRAN # 9.44 (1.4-6.5); GRAN % 73.8 % (50.0-68.0); LYMPH # 1.7 (1.2-3.4); LYMPH % 13.1 % (22.0-35.0); MEAN CORPUSCULAR HEMOGLOBIN 29.5 pg (25.0-35.0); MEAN CORPUSCULAR HGB CONC 33.6 g/dl (31.0-37.0); MEAN PLATELET VOLUME 10.4 fl (7.0-11.0); RBC 3.96 10^6/uL (3.5-6.1); RED CELL DISTRIBUTION WIDTH 14.4 % (11.5-14.5); WHITE BLOOD COUNT 12.8 10^3/ul (4.5-11.0)
[2018-02-27 06:25] LABS: HEMOGLOBIN 11.7 g/dL (12.0-16.0); MEAN CELL VOLUME 87.9 fl (80.0-105.0)
[2018-02-27 06:55] LABS: ALB/GLOB RATIO 1.3 (1.1-1.8); ALBUMIN 3.2 g/dL (3.0-4.8); ALT/SGPT 27 U/L (7-56); AST/SGOT 31 U/L (14-36); BLOOD UREA NITROGEN 7 mg/dL (7-21); CALCIUM 8.5 mg/dL (8.4-10.5); GFR NON-AFRICAN AMERICAN > 60
--- NOTE | 2018-02-27 07:15 | CP.PCM.PN ---
<Kunal Desai - Last Filed: 02/27/18 10:28> Subjective - Date & Time of Evaluation Date of Evaluation: 02/27/18 Time of Evaluation: 07:10 - Subjective Subjective: GI fellow PGY4 Blood transfusion and colonoscopy yesterday which found diverticulosis. No acute events overnight. Passing flatus this am. Tolerating full liquid diet. 5pt ROS neg except above. Objective - Vital Signs/Intake and Output Vital Signs (last 24 hours): Temp Pulse Resp BP Pulse Ox 98.3 F 75 25 H 176/65 H 96 02/27/18 04:00 02/27/18 07:00 02/27/18 07:00 02/27/18 07:00 02/27/18 07:00 Intake and Output: 02/27/18 02/27/18 06:59 18:59 Intake Total 0 Balance 0 - Medications Medications: Current Medications Amlodipine Besylate (Norvasc) 5 mg PO DAILY [facility] Amlodipine Besylate (Norvasc) 5 mg PO ONCE ONE Stop: 02/27/18 21:47 Home Med (Home Med) 1 unit PO HS [facility] Last Admin: 02/26/18 22:46 Dose: 1 unit Lisinopril (Zestril) 40 mg PO DAILY [facility] Metoprolol Tartrate (Lopressor) 5 mg IVP Q6 PRN PRN Reason: Systolic Blood Pressure Last Admin: 02/26/18 23:18 Dose: 5 mg Morphine Sulfate (Morphine) 2 mg IVP Q4H PRN PRN Reason: Pain, moderate (4-7) Last Admin: 02/26/18 22:50 Dose: 2 mg Pantoprazole Sodium (Protonix Inj) 40 mg IVP DAILY [facility] Last Admin: 02/26/18 09:46 Dose: 40 mg Sertraline HCl (Zoloft) 100 mg PO DAILY [facility] Last Admin: 02/26/18 09:46 Dose: 100 mg Timolol Maleate (Timoptic 0.5% Oph Soln) 0 drop OU BID [facility] Last Admin: 02/26/18 17:30 Dose: 2 drop Vitamin A (Vitamin A & D Oint Ud Foilpak) 1 ea TOP Q6 PRN PRN Reason: DRY LIPS Last Admin: 02/26/18 17:28 Dose: 1 ea - Labs Labs: 02/27/18 05:30 02/27/18 05:30 PT 13.2 SECONDS (9.4-12.5) H 02/26/18 06:55 INR 1.14 02/26/18 06:55 APTT 31.7 Seconds (25.1-36.5) 02/26/18 06:55 - Constitutional Appears: Well, Non-toxic, No Acute Distress - Head Exam Head Exam: NORMAL INSPECTION - Eye Exam Eye Exam: Normal appearance - ENT Exam ENT Exam: Mucous Membranes Moist - Respiratory Exam Respiratory Exam: Clear to Ausculation Bilateral, NORMAL BREATHING PATTERN - Cardiovascular Exam Cardiovascular Exam: REGULAR RHYTHM - GI/Abdominal Exam GI & Abdominal Exam: Soft, Normal Bowel Sounds. absent: Tenderness - Extremities Exam Extremities Exam: Normal Inspection - Neurological Exam Neurological Exam: Alert, Awake, Oriented x3 - Psychiatric Exam Psychiatric exam: Normal Affect, Normal Mood - Skin Skin Exam: Dry, Normal Color Assessment and Plan - Assessment and Plan (Free Text) Assessment: 72 year old female with a past medical history significant for HTN, PUD, OA, HLD , prior CVA, glaucoma, diverticulosis, anxiety, and depression who presented from TCU with hematochezia. GI was consulted for evaluation of GI hemorrhage. Colonoscopy 02/26/18 found diverticulosis throughout the colon. Plan: -Diverticular bleed is likely cause of bleeding in setting of recent OAC -CT Abdomen/Pelvis and GI Bleeding Scan reviewed -Continue to monitor H/H; transfuse for Hb less than 7. -Continue PPI daily -Avoid constipation. Recommend benefiber and miralax at home. <Josey,Kovil V - Last Filed: 03/02/18 00:43> Objective - Vital Signs/Intake and Output Vital Signs (last 24 hours): Temp Pulse Resp BP Pulse Ox 98.4 F 59 L 18 126/64 96 02/28/18 10:19 02/28/18 10:19 02/28/18 10:19 02/28/18 10:28 02/28/18 10:19 - Labs Labs: 02/28/18 06:30 02/28/18 06:30 PT 13.2 SECONDS (9.4-12.5) H 02/26/18 06:55 INR 1.14 02/26/18 06:55 APTT 31.7 Seconds (25.1-36.5) 02/26/18 06:55 Attending/Attestation - Attestation I have personally seen and examined this patient.: Yes I have fully participated in the care of the patient.: Yes I have reviewed all pertinent clinical information, including history, physical exam and plan: Yes Notes (Text): This is an addendum to GI progress report dictated by the GI Fellow.The patient was seen and examined earlier. Medical records, lab studies, imagings were reviewed. Last 24 hours events reviewed. Agreed with the above treatment plan as outlined in GI Fellow 's notes with the addition of the following No further episode of bleeding tolerating diet discussed with patients daughter yesterday recommended outpatient GI followup 03/02/18 00:42
--- NOTE | 2018-02-27 11:09 | CP.CCUPN ---
<Denis Pastor - Last Filed: 02/27/18 11:31> CCU Subjective - Physician Review Subjective (Free Text): Denis Pastor DO PGY1 - Internal Medicine Prop Making Supervisor - ICU Progress Note Patient was seen and evaluated at bedside this AM; Had colonoscopy performed last night No complaints this AM other than headache; given tylenol. Patient did not have any BMs post colonscopy. Denies any chest pain, dizziness, blurry vision, abd pain, n/v/d/c, urinary discomfort 12 system ROS is otherwise negative 02/27/18 11:08 CCU Objective - Vital Signs / Intake & Output Vital Signs (Last 4 hours): Vital Signs Pulse Resp BP Pulse Ox 02/27/18 09:18 83 193/71 H 02/27/18 09:00 82 13 97 02/27/18 08:50 83 13 93 L 02/27/18 08:40 85 36 H 93 L 02/27/18 08:30 82 23 94 L 02/27/18 08:20 74 95 02/27/18 08:15 74 19 132/53 L 95 02/27/18 08:10 75 18 95 02/27/18 08:00 72 21 123/57 L 95 02/27/18 07:50 71 18 96 02/27/18 07:45 71 21 128/64 96 02/27/18 07:40 72 19 96 02/27/18 07:30 78 10 L 177/66 H 96 02/27/18 07:20 77 18 95 02/27/18 07:15 77 26 H 162/42 H 96 02/27/18 07:10 73 20 96 Intake and Output (Last 8hrs): Intake & Output 02/26/18 02/27/18 02/27/18 22:59 06:59 14:59 Intake Total 335 150 Output Total 1300 900 300 Balance -965 -750 -300 Intake: IV 150 Right Forearm 150 Blood Product 325 Red Blood Cells Cpd As1 325 Lr Unit [id number] Red Blood Cells Cpd As1 0 Lr Unit [id number] Other 10 Red Blood Cells Cpd As1 10 Lr Unit [id number] Output: Urine 900 900 300 Urethral (Louis) 900 900 300 Stool 400 Other: # Bowel Movements 2 - Physical Exam Head: Positive for: Atraumatic, Normocephalic Pupils: Positive for: PERRL Extroacular Muscles: Positive for: EOMI Conjunctiva: Positive for: Normal Mouth: Positive for: Moist Mucous Membranes Neck: Positive for: Normal Range of Motion Respiratory/Chest: Positive for: Clear to Auscultation, Good Air Exchange, Other (ecchymosis left breast). Negative for: Respiratory Distress, Accessory Muscle Use Cardiovascular: Positive for: Regular Rate and Rhythm, Normal S1, S2. Negative for: Murmurs Abdomen: Negative for: Distention, Peritoneal Signs Back: Positive for: Normal Inspection Upper Extremity: Positive for: Normal Inspection. Negative for: Cyanosis, Edema Lower Extremity: Positive for: Normal Inspection. Negative for: Edema Neurological: Positive for: GCS=15, CN II-XII Intact, Speech Normal Skin: Positive for: Warm, Dry, Normal Color. Negative for: Rashes Psychiatric: Positive for: Alert, Oriented x 3, Normal Insight, Normal Concentration - Medications Active Medications: Active Medications Generic Name Dose Route Start Last Admin Trade Name Freq PRN Reason Stop Dose Admin Amlodipine Besylate 5 mg 02/27/18 10:00 02/27/18 09:18 Norvasc PO 5 mg DAILY [facility]IL[facility] Administration Amlodipine Besylate 5 mg 02/27/18 21:46 Norvasc PO 02/27/18 21:47 ONCE ONE Docusate Sodium 100 mg 02/27/18 18:00 Colace PO BID WILIAM Home Med 1 unit 02/24/18 22:00 02/26/18 22:46 Home Med PO 1 unit HS [facility] Administration Lisinopril 40 mg 02/27/18 10:00 02/27/18 09:17 Zestril PO 40 mg DAILY [facility] Administration Metoprolol Tartrate 5 mg 02/26/18 22:52 02/26/18 23:18 Lopressor IVP 5 mg Q6 PRN Administration Systolic Blood Pressure Morphine Sulfate 2 mg 02/24/18 11:53 02/26/18 22:50 Morphine IVP 2 mg Q4H PRN Administration Pain, moderate (4-7) Pantoprazole Sodium 40 mg 02/24/18 12:00 02/27/18 09:19 Protonix Inj IVP 40 mg DAILY [facility]ILIAM Administration Polyethylene Glycol 17 gm 02/28/18 10:00 Miralax PO DAILY [facility] Sertraline HCl 100 mg 02/24/18 11:45 02/27/18 09:17 Zoloft PO 100 mg DAILY [facility] Administration Timolol Maleate 0 drop 02/24/18 18:00 02/27/18 10:40 Timoptic 0.5% Ophth Soln OU 2 drop BID [facility]ILIAM Administration Vitamin A 1 ea 02/26/18 15:09 02/26/18 17:28 Vitamin A & D Oint Ud Foilpak TOP 1 ea Q6 PRN Administration DRY LIPS - Patient Studies Lab Studies: Lab Studies 02/27/18 02/27/18 Range/Units 05:30 05:30 WBC 12.8 H D (4.5-11.0) 10^3/ul RBC 3.96 (3.5-6.1) 10^6/uL Hgb 11.7 L D (12.0-16.0) g/dL Hct 34.8 L (36.0-48.0) % MCV 87.9 D (80.0-105.0) fl MCH 29.5 (25.0-35.0) pg MCHC 33.6 (31.0-37.0) g/dl RDW 14.4 (11.5-14.5) % Plt Count 200 (120.0-450.0) 10^3/uL MPV 10.4 (7.0-11.0) fl Gran % 73.8 H (50.0-68.0) % Lymph % (Auto) 13.1 L (22.0-35.0) % Beckham % (Auto) 8.0 H (1.0-6.0) % Eos % (Auto) 4.9 (1.5-5.0) % Baso % (Auto) 0.2 (0.0-3.0) % Gran # 9.44 H (1.4-6.5) Lymph # (Auto) 1.7 (1.2-3.4) Beckham # (Auto) 1.0 H (0.1-0.6) Eos # (Auto) 0.6 (0.0-0.7) Baso # (Auto) 0.03 (0.0-2.0) K/mm3 Sodium 139 (132-148) mmol/L Potassium 3.6 (3.6-5.0) mmol/L Chloride 107 (98-107) mmol/L Carbon Dioxide 26 (21-33) mmol/L Anion Gap 10 (10-20) BUN 7 (7-21) mg/dL Creatinine 0.6 L (0.7-1.2) mg/dl Est GFR ( Amer) > 60 Est GFR (Non-Af Amer) > 60 Random Glucose 79 (70-110) mg/dL Calcium 8.5 (8.4-10.5) mg/dL Phosphorus 3.7 (2.5-4.5) mg/dL Magnesium 1.8 (1.7-2.2) mg/dL Total Bilirubin 0.5 (0.2-1.3) mg/dL AST 31 (14-36) U/L ALT 27 (7-56) U/L Alkaline Phosphatase 133 H (38-126) U/L Total Protein 5.7 L (5.8-8.3) g/dL Albumin 3.2 (3.0-4.8) g/dL Globulin 2.5 gm/dL Albumin/Globulin Ratio 1.3 (1.1-1.8) Laboratory Results - last 24 hr 02/27/18 02/27/18 05:30 05:30 WBC 12.8 H D RBC 3.96 Hgb 11.7 L D Hct 34.8 L MCV 87.9 D MCH 29.5 MCHC 33.6 RDW 14.4 Plt Count 200 MPV 10.4 Gran % 73.8 H Lymph % (Auto) 13.1 L Beckham % (Auto) 8.0 H Eos % (Auto) 4.9 Baso % (Auto) 0.2 Gran # 9.44 H Lymph # (Auto) 1.7 Beckham # (Auto) 1.0 H Eos # (Auto) 0.6 Baso # (Auto) 0.03 Sodium 139 Potassium 3.6 Chloride 107 Carbon Dioxide 26 Anion Gap 10 BUN 7 Creatinine 0.6 L Est GFR ( Amer) > 60 Est GFR (Non-Af Amer) > 60 Random Glucose 79 Calcium 8.5 Phosphorus 3.7 Magnesium 1.8 Total Bilirubin 0.5 AST 31 ALT 27 Alkaline Phosphatase 133 H Total Protein 5.7 L Albumin 3.2 Globulin 2.5 Albumin/Globulin Ratio 1.3 Review of Systems - Review of Systems All systems: reviewed and no additional remarkable complaints except Review of Systems: as per HPI Critical Care Progress Note - Nutrition Nutrition: Nutrition Category Date Time Status Heart Healthy Diet [DIET] Diets 02/27/18 Lunch Active Liquid Diet [DIET] Diets 02/26/18 Breakfast Ordered Assessment/Plan - Assessment and Plan (Free Text) Assessment: 72F admitted to ICU on 02/24 after 3 episodes of hematochezia in TCU Neuro: AAO3 No FNDs Continue monitoring Reorient as necessary Cardio: Hypertensive overnight Admin x1 Clonidine 0.1mg Inc Lisinopril 40mg Started norvasc 5 yesterday RRR Maintain MAP >65 Pulm: Satting well on room air No pulm complaints CTABL GI: Bleeding scan shows bleed located near rectum No Bloody BM since colonscopy on 02/26 PM Colonoscopy - no active bleeding, internal hemorrhoids + diverticulosis Tolerating well post colonoscopy Tolerating diet well no GI complaints H/H stable this AM No evidence of diverticulitis on CTAP C/w Protonix IVP Renal/ : BUN/Cr - 07/0.6 Good urine output Heme: H/H tending down Hb this AM 8.9 Transfuse 2U per gen surg HD Stable ; Asymptomatic MSK: L rib fx Lidocaine patch Morphine 2 Q4 PRN - Moderate Dispo: Patient no longer requiring ICU management at this time; can be transferred to med/surg for further workup/management. Patient was seen examined and discussed w/ attending physician Dr. Eduard Pastor DO PGY1 - Pager [phone] - Date & Time Date: 02/27/18 Time: 11:30 <Sue Chapa - Last Filed: 02/27/18 14:37> CCU Objective - Vital Signs / Intake & Output Intake and Output (Last 8hrs): Intake & Output 02/26/18 02/27/18 02/27/18 22:59 06:59 14:59 Intake Total 335 150 Output Total 1300 900 300 Balance -965 -750 -300 Intake: IV 150 Right Forearm 150 Blood Product 325 Red Blood Cells Cpd As1 325 Lr Unit [id number] Red Blood Cells Cpd As1 0 Lr Unit [id number] Other 10 Red Blood Cells Cpd As1 10 Lr Unit [id number] Output: Urine 900 900 300 Urethral (Louis) 900 900 300 Stool 400 Other: # Bowel Movements 2 - Medications Active Medications: Active Medications Generic Name Dose Route Start Last Admin Trade Name Freq PRN Reason Stop Dose Admin Amlodipine Besylate 5 mg 02/27/18 10:00 02/27/18 09:18 Norvasc PO 5 mg DAILY WILIAM Administration Amlodipine Besylate 5 mg 02/27/18 21:46 Norvasc PO 02/27/18 21:47 ONCE ONE Docusate Sodium 100 mg 02/27/18 18:00 Colace PO BID WILIAM Home Med 1 unit 02/24/18 22:00 02/26/18 22:46 Home Med PO 1 unit HS WILIAM Administration Lidocaine 1 ea 02/27/18 11:30 Lidoderm TD DAILY [facility]IL[facility] Lisinopril 40 mg 02/27/18 10:00 02/27/18 09:17 Zestril PO 40 mg DAILY [facility] Administration Metoprolol Tartrate 5 mg 02/26/18 22:52 02/26/18 23:18 Lopressor IVP 5 mg Q6 PRN Administration Systolic Blood Pressure Morphine Sulfate 2 mg 02/24/18 11:53 02/26/18 22:50 Morphine IVP 2 mg Q4H PRN Administration Pain, moderate (4-7) Pantoprazole Sodium 40 mg 02/24/18 12:00 02/27/18 09:19 Protonix Inj IVP 40 mg DAILY WILIAM Administration Polyethylene Glycol 17 gm 02/28/18 10:00 Miralax PO DAILY [facility] Sertraline HCl 100 mg 02/24/18 11:45 02/27/18 09:17 Zoloft PO 100 mg DAILY [facility] Administration Timolol Maleate 0 drop 02/24/18 18:00 02/27/18 10:40 Timoptic 0.5% Ophth Soln OU 2 drop BID [facility]ILIAM Administration Vitamin A 1 ea 02/26/18 15:09 02/26/18 17:28 Vitamin A & D Oint Ud Foilpak TOP 1 ea Q6 PRN Administration DRY LIPS - Patient Studies Lab Studies: Lab Studies 02/27/18 02/27/18 Range/Units 05:30 05:30 WBC 12.8 H D (4.5-11.0) 10^3/ul RBC 3.96 (3.5-6.1) 10^6/uL Hgb 11.7 L D (12.0-16.0) g/dL Hct 34.8 L (36.0-48.0) % MCV 87.9 D (80.0-105.0) fl MCH 29.5 (25.0-35.0) pg MCHC 33.6 (31.0-37.0) g/dl RDW 14.4 (11.5-14.5) % Plt Count 200 (120.0-450.0) 10^3/uL MPV 10.4 (7.0-11.0) fl Gran % 73.8 H (50.0-68.0) % Lymph % (Auto) 13.1 L (22.0-35.0) % Beckham % (Auto) 8.0 H (1.0-6.0) % Eos % (Auto) 4.9 (1.5-5.0) % Baso % (Auto) 0.2 (0.0-3.0) % Gran # 9.44 H (1.4-6.5) Lymph # (Auto) 1.7 (1.2-3.4) Beckham # (Auto) 1.0 H (0.1-0.6) Eos # (Auto) 0.6 (0.0-0.7) Baso # (Auto) 0.03 (0.0-2.0) K/mm3 Sodium 139 (132-148) mmol/L Potassium 3.6 (3.6-5.0) mmol/L Chloride 107 (98-107) mmol/L Carbon Dioxide 26 (21-33) mmol/L Anion Gap 10 (10-20) BUN 7 (7-21) mg/dL Creatinine 0.6 L (0.7-1.2) mg/dl Est GFR ( Amer) > 60 Est GFR (Non-Af Amer) > 60 Random Glucose 79 (70-110) mg/dL Calcium 8.5 (8.4-10.5) mg/dL Phosphorus 3.7 (2.5-4.5) mg/dL Magnesium 1.8 (1.7-2.2) mg/dL Total Bilirubin 0.5 (0.2-1.3) mg/dL AST 31 (14-36) U/L ALT 27 (7-56) U/L Alkaline Phosphatase 133 H (38-126) U/L Total Protein 5.7 L (5.8-8.3) g/dL Albumin 3.2 (3.0-4.8) g/dL Globulin 2.5 gm/dL Albumin/Globulin Ratio 1.3 (1.1-1.8) Laboratory Results - last 24 hr 02/27/18 02/27/18 05:30 05:30 WBC 12.8 H D RBC 3.96 Hgb 11.7 L D Hct 34.8 L MCV 87.9 D MCH 29.5 MCHC 33.6 RDW 14.4 Plt Count 200 MPV 10.4 Gran % 73.8 H Lymph % (Auto) 13.1 L Beckham % (Auto) 8.0 H Eos % (Auto) 4.9 Baso % (Auto) 0.2 Gran # 9.44 H Lymph # (Auto) 1.7 Beckham # (Auto) 1.0 H Eos # (Auto) 0.6 Baso # (Auto) 0.03 Sodium 139 Potassium 3.6 Chloride 107 Carbon Dioxide 26 Anion Gap 10 BUN 7 Creatinine 0.6 L Est GFR ( Amer) > 60 Est GFR (Non-Af Amer) > 60 Random Glucose 79 Calcium 8.5 Phosphorus 3.7 Magnesium 1.8 Total Bilirubin 0.5 AST 31 ALT 27 Alkaline Phosphatase 133 H Total Protein 5.7 L Albumin 3.2 Globulin 2.5 Albumin/Globulin Ratio 1.3 Critical Care Progress Note - Nutrition Nutrition: Nutrition Category Date Time Status Heart Healthy Diet [DIET] Diets 02/27/18 Lunch Active Addendum Addendum: 02/27/18 14:36 ICU Attending Addendum: Patient seen and examined. Case reviewed on round with housestaff. Agree with resident note above with the following additions/exceptions: 72F with HTN, PUD, OA, CVA, diverticulosis, admitted to the MICU for GI Bleed. Bleeding scan shows lower GIB near rectum. HB stable for now. C-scope done yesterday 02/26 showing diverticuli and small hemorrhoids HB stable hemodynamically stable f/u GI rec stable for transfer out of ICU Rest of care as noted above. Sue Chapa MD Aircraft Painter Apprentice
--- NOTE | 2018-02-27 13:05 | CP.PCM.PN ---
Subjective - Date & Time of Evaluation Date of Evaluation: 02/27/18 Time of Evaluation: 10:00 - Subjective Subjective: General Surgery progress note for Dr. Conklin Pt seen and examined at bedside this AM. No adverse events overnight. Patient reports some persistent, but improved left sided abdominal and rib pain, denies any nausea, vomiting, or any further blood per rectum since yesterday. Colonoscopy yesterday showed non-bleeding internal hemorrhoids and non-bleeding diverticuli with no inflammation. Objective - Vital Signs/Intake and Output Vital Signs (last 24 hours): Temp Pulse Resp BP Pulse Ox 98.3 F 72 24 139/59 L 96 02/27/18 04:00 02/27/18 10:30 02/27/18 10:30 02/27/18 10:00 02/27/18 10:30 Intake and Output: 02/27/18 02/27/18 06:59 18:59 Intake Total 150 Output Total 900 300 Balance -750 -300 - Medications Medications: Current Medications Amlodipine Besylate (Norvasc) 5 mg PO DAILY [facility] Last Admin: 02/27/18 09:18 Dose: 5 mg Amlodipine Besylate (Norvasc) 5 mg PO ONCE ONE Stop: 02/27/18 21:47 Docusate Sodium (Colace) 100 mg PO BID [facility] Home Med (Home Med) 1 unit PO HS [facility] Last Admin: 02/26/18 22:46 Dose: 1 unit Lidocaine (Lidoderm) 1 ea TD DAILY [facility] Lisinopril (Zestril) 40 mg PO DAILY [facility] Last Admin: 02/27/18 09:17 Dose: 40 mg Metoprolol Tartrate (Lopressor) 5 mg IVP Q6 PRN PRN Reason: Systolic Blood Pressure Last Admin: 02/26/18 23:18 Dose: 5 mg Morphine Sulfate (Morphine) 2 mg IVP Q4H PRN PRN Reason: Pain, moderate (4-7) Last Admin: 02/26/18 22:50 Dose: 2 mg Pantoprazole Sodium (Protonix Inj) 40 mg IVP DAILY [facility] Last Admin: 02/27/18 09:19 Dose: 40 mg Polyethylene Glycol (Miralax) 17 gm PO DAILY [facility] Sertraline HCl (Zoloft) 100 mg PO DAILY [facility] Last Admin: 02/27/18 09:17 Dose: 100 mg Timolol Maleate (Timoptic 0.5% Ophth Soln) 0 drop OU BID [facility]IL[facility] Last Admin: 02/27/18 10:40 Dose: 2 drop Vitamin A (Vitamin A & D Oint Ud Foilpak) 1 ea TOP Q6 PRN PRN Reason: DRY LIPS Last Admin: 02/26/18 17:28 Dose: 1 ea - Labs Labs: 02/27/18 05:30 02/27/18 05:30 PT 13.2 SECONDS (9.4-12.5) H 02/26/18 06:55 INR 1.14 02/26/18 06:55 APTT 31.7 Seconds (25.1-36.5) 02/26/18 06:55 - Constitutional Appears: Well, Non-toxic, No Acute Distress - Head Exam Head Exam: ATRAUMATIC, NORMOCEPHALIC - Eye Exam Eye Exam: Normal appearance. absent: Conjunctival injection, Scleral icterus - ENT Exam ENT Exam: Mucous Membranes Moist, Normal Oropharynx - Respiratory Exam Respiratory Exam: NORMAL BREATHING PATTERN. absent: Accessory Muscle Use, Respiratory Distress - GI/Abdominal Exam GI & Abdominal Exam: Soft. absent: Distended, Tenderness - Extremities Exam Extremities Exam: absent: Calf Tenderness, Pedal Edema, Tenderness - Neurological Exam Neurological Exam: Alert, Awake, Oriented x3 - Psychiatric Exam Psychiatric exam: Normal Affect, Normal Mood - Skin Skin Exam: Dry, Normal Color, Warm Assessment and Plan - Assessment and Plan (Free Text) Assessment: 72F with GI bleed, likely bleeding diverticuli 2/2 eliquis use Plan: Continue to trend CBC, transfuse as needed continue to monitor for further signs of GI bleed Continue to f/u GI recs Continue to hold any antiplatelets or DVT ppx Encourage ambulation, incentive spirometer use Diet as tolerated per GI recs Discussed with DR. Armando Dill, PGY2
--- NOTE | 2018-02-27 13:46 | DS ---
HISTORY OF PRESENT ILLNESS: The patient is a 72-year-old female who had come in to the hospital because of GI bleed. The patient had an endoscopy done. She was found to have hemorrhoids and diverticulosis. Her hemoglobin has been stable. She was initially in the Transitional Care Unit. She has no complaints of any chest pain. No shortness of breath. No headaches or dizziness. Plan is for her to go back to the Transitional Care Unit. PHYSICAL EXAMINATION: VITAL SIGNS: Temperature is 98.3, pulse of 84, blood pressure is 198/68, respirations 20, O2 saturation 95%. GENERAL: The patient is lying in bed, flat, comfortable. HEENT: No oral lesion. Anicteric sclerae. Moist mucosa. NECK: No JVD, adenopathy, or thyromegaly. CARDIOVASCULAR: S1 and S2, regular. No murmurs, rubs, or gallops. LUNGS: Clear to auscultation bilaterally. No wheeze, rales, or rhonchi. ABDOMEN: Bowel sounds are positive, soft, nontender and nondistended. EXTREMITIES: No cyanosis, clubbing or edema. ASSESSMENT: 1. Acute anemia secondary to gastrointestinal bleed. 2. Obesity with a body mass index of 32. 3. Hypertension. 4. Osteoarthritis. 5. Gait dysfunction. 6. Depression. 7. Dyslipidemia. 8. Diverticulosis. 9. Hemorrhoids. PLAN: The patient is currently on metoprolol. The patient to continue on morphine for pain. She is receiving Norvasc for hypertension. I also have increased her lisinopril for her hypertension. The blood pressure is still not well controlled. She is on Timolol eye drops. She is on a liquid diet. If she tolerates, we will advance her diet. We will transfer her to the medical floor. Adolfo Walker MD
[2018-02-27] MEDS: Lidocaine 5% Patch TD SCH (17:59)
[2018-02-27] MEDS: CRESTOR 5 MG PO SCH (22:20)
[2018-02-27] MEDS: Morphine 2 mg/ml ISec IVP PRN (22:21)
--- NOTE | 2018-02-28 00:09 | CP.PCM.PN ---
Subjective - Date & Time of Evaluation Date of Evaluation: 02/28/18 Time of Evaluation: 08:00 - Subjective Subjective: Comfortable in bed. No rectal bleed. Hb/Hct improved to 11.7. No abdominal pain. Objective - Vital Signs/Intake and Output Vital Signs (last 24 hours): Temp Pulse Resp BP Pulse Ox 98.1 F 77 20 178/74 H 96 02/27/18 14:00 02/27/18 22:20 02/27/18 14:00 02/27/18 22:20 02/27/18 14:00 Intake and Output: 02/27/18 02/28/18 18:59 06:59 Intake Total 480 540 Output Total 300 Balance 180 540 - Medications Medications: Current Medications Amlodipine Besylate (Norvasc) 5 mg PO DAILY [facility] Last Admin: 02/27/18 09:18 Dose: 5 mg Docusate Sodium (Colace) 100 mg PO BID [facility] Last Admin: 02/27/18 17:57 Dose: 100 mg Home Med (Home Med) 1 unit PO HS [facility] Last Admin: 02/27/18 22:20 Dose: 1 unit Lidocaine (Lidoderm) 1 ea TD DAILY [facility] Last Admin: 02/27/18 17:59 Dose: 1 ea Lisinopril (Zestril) 40 mg PO DAILY [facility] Last Admin: 02/27/18 09:17 Dose: 40 mg Metoprolol Tartrate (Lopressor) 5 mg IVP Q6 PRN PRN Reason: Systolic Blood Pressure Last Admin: 02/26/18 23:18 Dose: 5 mg Morphine Sulfate (Morphine) 2 mg IVP Q4H PRN PRN Reason: Pain, moderate (4-7) Last Admin: 02/27/18 22:21 Dose: 2 mg Pantoprazole Sodium (Protonix Inj) 40 mg IVP DAILY [facility] Last Admin: 02/27/18 09:19 Dose: 40 mg Polyethylene Glycol (Miralax) 17 gm PO DAILY [facility] Sertraline HCl (Zoloft) 100 mg PO DAILY [facility] Last Admin: 02/27/18 09:17 Dose: 100 mg Timolol Maleate (Timoptic 0.5% Ophth Soln) 0 drop OU BID [facility] Last Admin: 02/27/18 17:58 Dose: 1 drop Vitamin A (Vitamin A & D Oint Ud Foilpak) 1 ea TOP Q6 PRN PRN Reason: DRY LIPS Last Admin: 02/26/18 17:28 Dose: 1 ea - Labs Labs: 02/27/18 05:30 02/27/18 05:30 PT 13.2 SECONDS (9.4-12.5) H 02/26/18 06:55 INR 1.14 02/26/18 06:55 APTT 31.7 Seconds (25.1-36.5) 02/26/18 06:55 - Constitutional Appears: Well, Non-toxic - Head Exam Head Exam: ATRAUMATIC, NORMAL INSPECTION, NORMOCEPHALIC - Eye Exam Eye Exam: Normal appearance - ENT Exam ENT Exam: Mucous Membranes Moist - Neck Exam Neck Exam: Normal Inspection - Respiratory Exam Respiratory Exam: Clear to Ausculation Bilateral, NORMAL BREATHING PATTERN - Cardiovascular Exam Cardiovascular Exam: REGULAR RHYTHM, +S1, +S2 - GI/Abdominal Exam GI & Abdominal Exam: Soft, Normal Bowel Sounds - Extremities Exam Extremities Exam: Normal Inspection - Back Exam Back Exam: NORMAL INSPECTION - Neurological Exam Neurological Exam: Alert, Awake, Oriented x3 - Skin Skin Exam: Normal Color, Warm Assessment and Plan - Assessment and Plan (Free Text) Assessment: 1. rectal bleed : colonoscopy showed diverticulosis. no mass lesion. 2. Heme : hb/hct improved. 3. renal : normal renal functions. 4. HTN : BP controlled with current meds.
[2018-02-28 00:21] LABS: PH,URINE 6.5 (4.7-8.0); URINE BILIRUBIN NEGATIVE (NEGATIVE); URINE BLOOD LARGE (NEGATIVE); URINE GLUCOSE (UA) NEGATIVE (NEGATIVE); URINE LEUKOCYTE ESTERASE MODERATE Leu/uL (NEGATIVE); URINE PROTEIN 100 mg/dL (<30 mg/dL); URINE UROBILINOGEN 0.2 E.U./dL (<1 E.U./dL)
[2018-02-28 00:23] LABS: URINE APPEARANCE CLOUDY (CLEAR); URINE COLOR YELLOW (YELLOW)
[2018-02-28 00:28] LABS: URINE BACTERIA MANY (NEG); URINE EPITHELIAL CELLS 0 - 2 /hpf (0-5); URINE WBC TNTC /hpf (0-6)
[2018-02-28 07:19] LABS: BASO # 0.03 K/mm3 (0.0-2.0); BASO % 0.3 % (0.0-3.0); EOS # 0.7 (0.0-0.7); EOS % 6.6 % (1.5-5.0); GRAN # 6.75 (1.4-6.5); GRAN % 67.1 % (50.0-68.0); HEMOGLOBIN 10.5 g/dL (12.0-16.0); LYMPH # 1.6 (1.2-3.4); LYMPH % 16.3 % (22.0-35.0); MEAN CELL VOLUME 87.4 fl (80.0-105.0); MEAN CORPUSCULAR HEMOGLOBIN 28.8 pg (25.0-35.0); MEAN CORPUSCULAR HGB CONC 32.9 g/dl (31.0-37.0); MEAN PLATELET VOLUME 10.4 fl (7.0-11.0); MONO % 9.7 % (1.0-6.0); RBC 3.65 10^6/uL (3.5-6.1); RED CELL DISTRIBUTION WIDTH 14.2 % (11.5-14.5); WHITE BLOOD COUNT 10.1 10^3/ul (4.5-11.0)
[2018-02-28 07:34] LABS: ALB/GLOB RATIO 1.2 (1.1-1.8); ALT/SGPT 25 U/L (7-56); AST/SGOT 26 U/L (14-36); BLOOD UREA NITROGEN 15 mg/dL (7-21); CALCIUM 8.5 mg/dL (8.4-10.5); GFR NON-AFRICAN AMERICAN > 60
[2018-02-28] MEDS ORDERED: Amoxicillin-Clav 500-125 mg Tab PO SCH (08:45)
[2018-02-28] MEDS ORDERED: POLYETHYLENE GLYCOL 3350 17 GM/Dose PACKET PO SCH (10:00)
[2018-02-28] MEDS ORDERED: Oxycodone/Acetaminophen 5/325 mg Tab PO STA (10:03)
[2018-02-28 10:17] VITALS: PULSE 59; TEMP 98.4
[2018-02-28 10:21] VITALS: RESP 18; O2SAT 96
[2018-02-28 10:26] LABS: IRON 26 ug/dL (45-180)
[2018-02-28] MEDS: Lidocaine 5% Patch TD SCH (10:27)
[2018-02-28 10:35] VITALS: BP 126/64
[2018-02-28 10:35] LABS: % IRON SATURATION 8 % (20-55); TOTAL IRON BINDING CAPACITY 303 ug/dL (265-497)
--- NOTE | 2018-02-28 20:19 | DS ---
HISTORY OF PRESENT ILLNESS: This is a 72-year-old female who had come into the hospital, had a GI bleed. She has improved. She had a colonoscopy done. Please see the discharge summary that was done on 02/27/2018. PHYSICAL EXAMINATION: VITAL SIGNS: Temperature is 98.1, pulse of 66, blood pressure is 109/59, respirations 20, and O2 saturation 96%. GENERAL: The patient is lying in bed, flat, comfortable. HEENT: No oral lesion. Anicteric sclerae. Moist mucosa. NECK: No JVD, adenopathy, or thyromegaly. CARDIOVASCULAR: S1 and S2, regular. No murmurs, rubs, or gallops. LUNGS: Clear to auscultation bilaterally. No wheeze, rales, or rhonchi. ABDOMEN: Bowel sounds are positive, soft, nontender and nondistended. EXTREMITIES: No cyanosis, clubbing or edema. ASSESSMENT: 1. Acute anemia secondary to blood loss. 2. Obesity with a body mass index of 32. 3. Hypotension. 4. Osteoarthritis. 5. Gait dysfunction. 6. Depression. 7. Dyslipidemia. 8. Diverticulosis. 9. Hemorrhoids. PLAN: The patient is currently receiving lidocaine, placed on metoprolol. She is going to continue on morphine for pain. She will be placed on Protonix. She is on Norvasc for hypotension. The patient is receiving lisinopril for hypotension as well. Her blood pressure is elevated, but better controlled. The patient is on heart-healthy diet. She is asking to be discharged home. CONDITION: Stable. ACTIVITIES: Increase as tolerated. Adolfo Walker MD
== END 2018-02-28 14:18 | disposition home or self-care (01) | DRG 378 ==
LOC: ED 07:47 → ERH 09:39 → 3RSO 10:59 → ICU 17:01 → 5RSO 02-27 11:24
PROVIDERS: ADMIT Internal Medicine Medical Oncology; ATTEND Internal Medicine Nephrology
PROC: 30233N1 Transfusion of Nonautologous Red Blood Cells into Peripheral Vein, Percutaneous Approach (ICD-10-PCS; 2018-02-26)
PROC: 0DJD8ZZ Inspection of Lower Intestinal Tract, Via Natural or Artificial Opening Endoscopic (ICD-10-PCS; principal; 2018-02-26 16:30)
DX: K57.31 Diverticulosis of large intestine without perforation or abscess with bleeding (principal); D62 Acute posthemorrhagic anemia; S22.32XA Fracture of one rib, left side, initial encounter for closed fracture; D17.5 Benign lipomatous neoplasm of intra-abdominal organs; I10 Essential (primary) hypertension; E78.00 Pure hypercholesterolemia, unspecified; E78.5 Hyperlipidemia, unspecified; F32.9 Major depressive disorder, single episode, unspecified; H40.9 Unspecified glaucoma; K21.9 Gastro-esophageal reflux disease without esophagitis; K64.8 Other hemorrhoids; K27.9 Peptic ulcer, site unspecified, unspecified as acute or chronic, without hemorrhage or perforation; M19.90 Unspecified osteoarthritis, unspecified site; F41.9 Anxiety disorder, unspecified; R26.9 Unspecified abnormalities of gait and mobility; I95.9 Hypotension, unspecified; E66.9 Obesity, unspecified; R29.6 Repeated falls; S20.219A Contusion of unspecified front wall of thorax, initial encounter; W19.XXXA Unspecified fall, initial encounter; Z86.73 Personal history of transient ischemic attack (TIA), and cerebral infarction without residual deficits; Z68.32 Body mass index [BMI] 32.0-32.9, adult; Z87.891 Personal history of nicotine dependence; Z87.01 Personal history of pneumonia (recurrent); Z79.01 Long term (current) use of anticoagulants

== ENCOUNTER 2018-07-12 16:06 | Inpatient (IN) | payer MEDICARE, MEDICAID ==
[2018-07-12 16:36] VITALS: BMI 31.3
[2018-07-12] MEDS ORDERED: Morphine 4 mg/ml ISec IVP STA ×4 (16:46→22:36)
--- NOTE | 2018-07-12 16:47 | ED PDOC ---
Arrival/HPI - General Chief Complaint: Lower Extremity Problem/Injury Time Seen by Provider: 07/12/18 16:38 Historian: Patient - History of Present Illness Narrative History of Present Illness (Text): 07/12/18 16:47 A 73 year old female, whose past medical history includes bilateral hip surgery, hypertension, OA, CVA, and chronic anemia, presents to the emergency department complaining of left leg pain for the past few weeks. Pain is gradually worsening to the point that she could not stand on it today or move off the stairs. Patient reports she recently had hip surgery in May at [facility] with Dr. Kerr (sp?) that left her in increasing left leg pain. Patient notes it is difficult to put her left foot down and notes pain to be mostly in her left thigh. Patient denies any fever, chest pain, or any other complaints. She has an US this past week that ruled out DVT. PMD: Dr. Mendoza Time/Duration: Other (few days) Symptom Onset: Gradual Symptom Course: Unchanged Activities at Onset: Light Context: Home Past Medical History - Provider Review Nursing Documentation Reviewed: Yes - Past History Past History: Non-Contributing - Infectious Disease Hx of Infectious Diseases: None - Tetanus Immunization Tetanus Immunization: Up to Date - Cardiac Hx Cardiac Disorders: Yes Hx AL: (NSTEMI may 28) Hx Hypertension: Yes Other/Comment: carotid artery stenosis s/p right CEA - Pulmonary Hx Respiratory Disorders: Yes Hx Pneumonia: Yes - Neurological Hx Neurological Disorder: Yes HX Cerebrovascular Accident: Yes Hx Transient Ischemic Attacks (TIA): Yes - HEENT Hx Cataracts: Yes Hx Glaucoma: Yes Other/Comment: reports surgery for cataract removal - Renal Hx Renal Disorder: No - Endocrine/Metabolic Hx Endocrine Disorders: No - Hematological/Oncological Hx Blood Transfusions: Yes Hx Blood Transfusion Reaction: No - Integumentary Hx Dermatological Disorder: No - Musculoskeletal/Rheumatological Hx Back Pain: Yes Hx Falls: Yes (multiple falls last 2 months) Hx Herniated Disk: Yes - Gastrointestinal Hx Gastrointestinal Disorders: Yes Hx Diverticulitis: Yes Hx Gall Bladder Disease: Yes - Genitourinary/Gynecological Hx Genitourinary Disorders: Yes Other/Comment: hysterectomy, age 36 - Psychiatric Hx Psychophysiologic Disorder: Yes Hx Anxiety: Yes Hx Depression: Yes Hx Substance Use: No - Past Surgical History Past Surgical History: Non-Contributing - Surgical History Hx Appendectomy: Yes Hx Cataract Extraction: Yes (x2) Hx Cardiac Catheterization: Yes (may 2018) Hx Cholecystectomy: Yes Hx Hysterectomy: Yes Hx Orthopedic Surgery: Yes (R hip and femur, L hip) Hx Tonsillectomy: Yes - Anesthesia Hx Anesthesia: Yes Hx Anesthesia Reactions: No Hx Malignant Hyperthermia: No - Suicidal Assessment Feels Threatened In Home Enviroment: No Family/Social History - Physician Review Nursing Documentation Reviewed: Yes Family/Social History: No Known Family HX Smoking Status: Former Smoker Hx Alcohol Use: No Hx Substance Use: No Hx Substance Use Treatment: No Allergies/Home Meds Allergies/Adverse Reactions: Allergies atorvastatin calcium [From Lipitor] Allergy (Verified 07/12/18 16:26) FATIGUE clopidogrel bisulfate [From Plavix] Allergy (Verified 07/12/18 16:26) SHORTNESS OF BREATH nalbuphine HCl [From Nubain] Allergy (Verified 07/12/18 16:26) VOMITING Home Medications: Home Meds Medication Instructions Recorded Confirmed RX: Omeprazole [Prilosec] 20 mg PO BID 04/19/15 07/13/18 RX: Aspirin [Aspirin Chewable] 81 mg PO DAILY 08/18/17 07/13/18 RX: Enalapril Maleate [Vasotec] 10 mg PO BID 08/18/17 07/13/18 RX: Rosuvastatin Calcium [Crestor] 10 mg PO DAILY 08/18/17 07/13/18 Review of Systems - Physician Review All systems were reviewed & negative as marked: Yes - Review of Systems Constitutional: absent: Fevers Cardiovascular: absent: Chest Pain Physical Exam - Physical Exam Narrative Physical Exam (Text): 07/12/18 16:47 Constitutional: No acute distress. Head: Normocephalic. Atraumatic. Eyes: PERRL. ENT: Moist mucous membranes. Neck: Supple. Cardiovascular: Regular rate. Chest: No tenderness. Respiratory: Clear to auscultation bilaterally. GI: Soft. Nontender. Nondistended. Back: No CVA tenderness. Musculoskeletal: Tenderness throughout left thigh. No calf tenderness, no calf edema. Skin: No rash. Neurologic: Alert, no focal deficit. Vital Signs Reviewed: Yes Vital Signs Temp Pulse Resp BP Pulse Ox 07/12/18 16:41 98.0 F 97 H 18 210/100 H 95 Temperature: Afebrile Blood Pressure: Hypertensive Pulse: Tachycardic Respiratory Rate: Normal Appearance: Positive for: Non-Toxic Medical Decision Making ED Course and Treatment: 07/12/18 16:48 Impression: 73 year old female presenting to the emergency room complaining of left leg pain. Plan: -- CMP -- CBC -- Morphine -- Reassess and disposition Prior Visits: Notes and results from previous visits were reviewed. Progress Notes: Labs unremarkable. Pending CPK and CT extremity. Morphine administered x 2. Transferred to oncoming team at change of shift. - Medication Orders Current Medication Orders: Morphine Sulfate (Morphine) 4 mg IVP STAT STA Stop: 07/12/18 16:47 - Scribe Statement The provider has reviewed the documentation as recorded by the Scribbishop Vick All medical record entries made by the Scribe were at my direction and personally dictated by me. I have reviewed the chart and agree that the record accurately reflects my personal performance of the history, physical exam, medical decision making, and the department course for this patient. I have also personally directed, reviewed, and agree with the discharge instructions and disposition. Disposition/Present on Arrival - Present on Arrival Any Indicators Present on Arrival: No History of DVT/PE: No History of Uncontrolled Diabetes: No Urinary Catheter: No History of Decub. Ulcer: No History Surgical Site Infection Following: None - Disposition Have Diagnosis and Disposition been Completed?: No Diagnosis: Intractable pain, Leg pain, left Disposition Time: 19:00 Condition: STABLE
[2018-07-12 17:27] LABS: HEMOGLOBIN 13.7 g/dL (12.0-16.0); RBC 4.79 10^6/uL (3.5-6.1); WHITE BLOOD COUNT 9.5 10^3/uL (4.5-11.0)
[2018-07-12 17:28] LABS: BASO # 0.04 K/mm3 (0.0-2.0); BASO % 0.4 % (0.0-3.0); EOS # 0.4 (0.0-0.7); EOS % 4.6 % (1.5-5.0); LYMPH # 1.6 (1.2-3.4); LYMPH % 16.6 % (22.0-35.0); MEAN CELL VOLUME 89.6 fl (80.0-105.0); MEAN CORPUSCULAR HEMOGLOBIN 28.6 pg (25.0-35.0); MEAN CORPUSCULAR HGB CONC 31.9 g/dl (31.0-37.0); MEAN PLATELET VOLUME 10.9 fl (7.0-11.0); MONO # 0.7 (0.1-0.6); MONO % 7.3 % (1.0-6.0); RED CELL DISTRIBUTION WIDTH 14.8 % (11.5-14.5)
[2018-07-12 17:29] LABS: ALB/GLOB RATIO 1.2 (1.1-1.8); ALBUMIN 4.3 g/dL (3.0-4.8); ALT/SGPT 25 U/L (7-56); AST/SGOT 35 U/L (14-36); BLOOD UREA NITROGEN 21 mg/dL (7-21); CALCIUM 9.5 mg/dL (8.4-10.5); GFR NON-AFRICAN AMERICAN > 60
[2018-07-12] MEDS ORDERED: Iohexol 350 MG/100 ML VIAL ONE (17:42)
--- NOTE | 2018-07-12 19:00 | CT ---
Date of service: 07/12/2018 PROCEDURE: CT of the Left Hip. HISTORY: s/p hip surgery, severe pain in thigh COMPARISON: None available. TECHNIQUE: Contiguous axial images of the left hip were obtained. Coronal and sagittal reformats were generated. 96 mL Omnipaque 350 was administered intravenously Radiation dose: Total exam DLP = 686.26 mGy-cm. This CT exam was performed using one or more of the following dose reduction techniques: Automated exposure control, adjustment of the mA and/or kV according to patient size, and/or use of iterative reconstruction technique. FINDINGS: BONES: Prior left hip arthroplasty. Prosthetic components appear in good alignment. Oblique periprosthetic fracture extending along the proximal femoral shaft involving the lesser trochanter. SOFT TISSUES: Postsurgical changes. IMPRESSION: Prior left hip arthroplasty. Vertical oblique periprosthetic fracture involving the medial proximal femoral shaft involving the lesser trochanter. No obvious periprosthetic hemorrhage or hematoma.
--- NOTE | 2018-07-12 19:49 | ED PDOC ---
Physical Exam Vital Signs Reviewed: Yes Vital Signs Temp Pulse Resp BP Pulse Ox 07/12/18 19:01 97 H 18 164/85 H 96 07/12/18 18:02 82 20 148/85 98 07/12/18 16:41 98.0 F 97 H 18 210/100 H 95 Temperature: Afebrile Blood Pressure: Hypertensive Pulse: Tachycardic Respiratory Rate: Normal Appearance: Positive for: Well-Appearing, Non-Toxic, Comfortable Pain Distress: None Mental Status: Positive for: Alert and Oriented X 3 Medical Decision Making ED Course and Treatment: 07/12/18 19:38: Case endorsed to me by Dr. Carrasco. Patient pending CT of the left hip, reassessment, and possible admission. PROCEDURE: CT of the Left Hip. Dictator : Tiago Montoya MD Report Date : 07/12/2018 18:56:49 IMPRESSION: Prior left hip arthroplasty. Vertical oblique periprosthetic fracture involving the medial proximal femoral shaft involving the lesser trochanter. No obvious periprosthetic hemorrhage or hematoma. 07/12/18 19:[address] Walker covering for Dr. Mendoza who is aware and agrees with the plan. Accepts patient into his service. - Lab Interpretations Lab Results: Total Bilirubin 0.4 mg/dL (0.2-1.3) 07/12/18 17:15 AST 35 U/L (14-36) 07/12/18 17:15 ALT 25 U/L (7-56) 07/12/18 17:15 Alkaline Phosphatase 176 U/L (38-126) H D 07/12/18 17:15 Total Protein 7.8 g/dL (5.8-8.3) 07/12/18 17:15 Albumin 4.3 g/dL (3.0-4.8) 07/12/18 17:15 Globulin 3.5 gm/dL 07/12/18 17:15 Albumin/Globulin Ratio 1.2 (1.1-1.8) 07/12/18 17:15 - RAD Interpretation Radiology Orders: 07/12/18 17:16 EXT LOWER WITH CONTRAST LEFT [CT] Stat - Medication Orders Current Medication Orders: Discontinued Medications Morphine Sulfate (Morphine) 4 mg IVP STAT STA Stop: 07/12/18 16:47 Last Admin: 07/12/18 17:25 Dose: 4 mg MAR Pain Assessment Document 07/12/18 17:25 EQ (Rec: 07/12/18 17:25 EQ [id number]) Pain Reassessment Is this a pain reassessment? No Sleep Is patient sleeping during reassessment? No Presence of Pain Presence of Pain Yes IVP Administration Document 07/12/18 17:25 EQ (Rec: 07/12/18 17:25 EQ [id number]) Charges for Administration # of IVP Administrations 1 Morphine Sulfate (Morphine) 4 mg IVP STAT STA Stop: 07/12/18 17:58 Last Admin: 07/12/18 18:06 Dose: 4 mg MAR Pain Assessment Document 07/12/18 18:06 EQ (Rec: 07/12/18 18:06 EQ [id number]) Pain Reassessment Is this a pain reassessment? No Sleep Is patient sleeping during reassessment? No Presence of Pain Presence of Pain Yes IVP Administration Document 07/12/18 18:06 EQ (Rec: 07/12/18 18:06 EQ [id number]) Charges for Administration # of IVP Administrations 1 Morphine Sulfate (Morphine) 4 mg IVP STAT STA Stop: 07/12/18 18:49 Last Admin: 07/12/18 19:04 Dose: 4 mg MAR Pain Assessment Document 07/12/18 19:04 EQ (Rec: 07/12/18 19:04 EQ [id number]) Pain Reassessment Is this a pain reassessment? No Sleep Is patient sleeping during reassessment? No Presence of Pain Presence of Pain Yes IVP Administration Document 07/12/18 19:04 EQ (Rec: 07/12/18 19:04 EQ [id number]) Charges for Administration # of IVP Administrations 1 - Scribe Statement The provider has reviewed the documentation as recorded by the Scribe Anca Weeks Provider Scribe Attestation: All medical record entries made by the Scribe were at my direction and personally dictated by me. I have reviewed the chart and agree that the record accurately reflects my personal performance of the history, physical exam, medical decision making, and the department course for this patient. I have also personally directed, reviewed, and agree with the discharge instructions and disposition. Disposition/Present on Arrival - Present on Arrival Any Indicators Present on Arrival: No History of DVT/PE: No History of Uncontrolled Diabetes: No Urinary Catheter: No History of Decub. Ulcer: No History Surgical Site Infection Following: None - Disposition Have Diagnosis and Disposition been Completed?: Yes Diagnosis: Intractable pain, Leg pain, left Disposition: HOSPITALIZED Disposition Time: 19:55 Condition: GOOD
[2018-07-13] MEDS ORDERED: HYDROmorphone 1 mg/ml ISec IVP STA ×2 (01:45→08:02)
--- NOTE | 2018-07-13 06:59 | CP.PCM.HP ---
<Hilary Smith - Last Filed: 07/13/18 13:54> History of Present Illness - History of Present Illness History of Present Illness: 73yo female PMHx NSETMI, CAD, HTN, HLD, OA, CVA, TIA, chronic anemia, Diverticulitis, PUD, cataracts, glaucoma, arthritis, herniated disk, sciatica, depression, anxiety, falls presents with LLE pain for weeks. Patient reports pain worsened to the point that she was unable to stand/put pressure on it. Patient had hip surgery at [facility] in [facility] with Dr. Kerr and since then has had increasing pain in her LLE. The pain is from her left hip to under her left knee and described as 10/10 sharp throbbing in nature. Patient denied other acute complaints fever, chills, headache, dizziness, chest pain, SOB, cough, abd pain, nausea, vomiting, bowel/bladder complaints. PMHx: NSETMI, CAD, HTN, HLD, OA, CVA, TIA, chronic anemia, Diverticulitis, PUD, cataracts, glaucoma, arthritis, herniated disk, sciatica, depression, anxiety, falls PSurgHx: B/l hip surgery, R carotid endarterectomy, appendectomy, cholecyst ectomy, cataract extraction x 2, tonsillectomy, several epidurals, hysterectomy Meds: pls see chart ALL: atorvastatin, plavix, nalbuphine FamHx: noncontributory PMD: Dr. Mendoza Present on Admission - Present on Admission Any Indicators Present on Admission: No Review of Systems - Review of Systems All systems: reviewed and no additional remarkable complaints except Review of Systems: as per HPI Past Patient History - Infectious Disease Hx of Infectious Diseases: None - Tetanus Immunizations Tetanus Immunization: Up to Date - Past Medical History & Family History Past Medical History?: Yes - Past Social History Smoking Status: Former Smoker - CARDIAC Hx Cardiac Disorders: Yes Hx Hypertension: Yes Other/Comment: carotid artery stenosis s/p right CEA - PULMONARY Hx Respiratory Disorders: Yes Hx Pneumonia: Yes - NEUROLOGICAL Hx Neurological Disorder: Yes HX Cerebrovascular Accident: Yes Hx Transient Ischemic Attacks (TIA): Yes - HEENT Hx Cataracts: Yes Hx Glaucoma: Yes Other/Comment: reports surgery for cataract removal - RENAL Hx Chronic Kidney Disease: No - ENDOCRINE/METABOLIC Hx Endocrine Disorders: No - HEMATOLOGICAL/ONCOLOGICAL Hx Anemia: Yes - INTEGUMENTARY Hx Dermatological Problems: No - MUSCULOSKELETAL/RHEUMATOLOGICAL Hx Falls: Yes - GASTROINTESTINAL Hx Gastrointestinal Disorders: Yes Hx Diverticulitis: Yes Hx Gall Bladder Disease: Yes - GENITOURINARY/GYNECOLOGICAL Hx Genitourinary Disorders: Yes Other/Comment: hysterectomy, age 36 - PSYCHIATRIC Hx Psychophysiologic Disorder: Yes Hx Anxiety: Yes Hx Depression: Yes - SURGICAL HISTORY Hx Appendectomy: Yes Hx Cardiac Catheterization: Yes (may 2018) Hx Cholecystectomy: Yes Hx Hysterectomy: Yes Hx Orthopedic Surgery: Yes (R hip and femur, L hip) - ANESTHESIA Hx Anesthesia: Yes Hx Anesthesia Reactions: No Hx Malignant Hyperthermia: No Meds Allergies/Adverse Reactions: Allergies Allergy/AdvReac Type Severity Reaction Status Date / Time atorvastatin calcium Allergy FATIGUE Verified 07/12/18 16:26 [From Lipitor] clopidogrel bisulfate Allergy SHORTNESS Verified 07/12/18 16:26 [From Plavix] OF BREATH nalbuphine HCl [From Nubain] Allergy VOMITING Verified 07/12/18 16:26 Physical Exam - Constitutional Appears: Non-toxic, In Acute Distress (pain), Other (tearful) - Head Exam Head Exam: ATRAUMATIC, NORMAL INSPECTION, NORMOCEPHALIC - Eye Exam Eye Exam: EOMI, Normal appearance, PERRL. absent: Conjunctival injection, Scleral icterus - ENT Exam ENT Exam: Mucous Membranes Moist - Neck Exam Neck exam: Positive for: Normal Inspection - Respiratory Exam Respiratory Exam: Clear to Auscultation Bilateral, NORMAL BREATHING PATTERN. absent: Accessory Muscle Use, Rales, Rhonchi, Wheezes, Respiratory Distress - Cardiovascular Exam Cardiovascular Exam: +S1, +S2 - GI/Abdominal Exam GI & Abdominal Exam: Normal Bowel Sounds, Soft. absent: Distended, Firm, Guarding, Rigid, Tenderness - Extremities Exam Extremities exam: Positive for: pedal pulses present. Negative for: pedal edema - Neurological Exam Neurological exam: Alert, CN II-XII Intact, Oriented x3 - Psychiatric Exam Psychiatric exam: Anxious (tearful) - Skin Skin Exam: Dry, Intact, Normal Color, Warm Results - Vital Signs Recent Vital Signs: Last Vital Signs Temp 98.4 F 07/13/18 01:05 Pulse 77 07/13/18 01:05 Resp 20 07/13/18 04:55 BP 109/59 L 07/13/18 01:15 Pulse Ox 95 07/13/18 01:05 - Labs Result Diagrams: 07/13/18 09:00 07/13/18 09:00 Labs: Laboratory Results - last 24 hr 07/12/18 07/12/18 07/12/18 17:15 17:15 17:15 WBC 9.5 RBC 4.79 Hgb 13.7 D Hct 42.9 MCV 89.6 MCH 28.6 MCHC 31.9 RDW 14.8 H Plt Count 263 MPV 10.9 Neut % (Auto) 71.1 H Lymph % (Auto) 16.6 L Perkins % (Auto) 7.3 H Eos % (Auto) 4.6 Baso % (Auto) 0.4 Lymph # (Auto) 1.6 Perkins # (Auto) 0.7 H Eos # (Auto) 0.4 Baso # (Auto) 0.04 Absolute Neuts (auto) 6.72 H Sodium 142 Potassium 4.5 Chloride 106 Carbon Dioxide 26 Anion Gap 13 BUN 21 Creatinine 0.7 Est GFR ( Amer) > 60 Est GFR (Non-Af Amer) > 60 Random Glucose 118 H Calcium 9.5 Total Bilirubin 0.4 AST 35 ALT 25 Alkaline Phosphatase 176 H D Total Creatine Kinase 38 Total Protein 7.8 Albumin 4.3 Globulin 3.5 Albumin/Globulin Ratio 1.2 Assessment & Plan - Assessment and Plan (Free Text) Assessment: 1. Left lesser trochanteric hip fracture 2. Herniated disk 3. Sciatica 4. Anxiety 5. Depression 6. Frequent falls 7. CAD 8. HTN 9. HLD 10. OA 11. past CVA 12. Pain management Plan: Patient admitted to med/surg for further management. CT LE showed prior left hip arthroplasty. Vertical oblique periprosthetic fracture involving the medial proximal femoral shaft involving the lesser trochanter. No obvious periprosthetic hemorrhage or hematoma. Dr. Mary ortho consulted. Patient pain managed with fentanyl 10mg patch, Dilaudid 1q6 for severe pain, and Oxycodone 10q4 for moderate pain. Will monitor closely. Pain regimen should help pain from herniated disk and sciatica. Continue patient's home Zoloft daily. Patient continued on home med ASA and Lisinopril for CAD and HTN. Patient was very tearful this AM and in distress over pain. GI ppx on board. Patient has HHD ordered. Will continue to monitor closely. Discussed with Dr. Denise Smith PGY3 <Adolfo Walker - Last Filed: 07/13/18 19:32> Results - Vital Signs Recent Vital Signs: Last Vital Signs Temp 97.8 F 07/13/18 14:00 Pulse 68 07/13/18 18:07 Resp 20 07/13/18 14:00 BP 117/64 07/13/18 18:07 Pulse Ox 98 07/13/18 14:00 - Labs Result Diagrams: 07/13/18 09:00 07/13/18 09:00 Labs: Laboratory Results - last 24 hr 07/12/18 07/13/18 07/13/18 17:15 07:01 09:00 WBC 8.3 RBC 4.09 Hgb 11.4 L D Hct 37.0 MCV 90.5 MCH 27.9 MCHC 30.8 L RDW 14.8 H Plt Count 238 MPV 10.1 Neut % (Auto) 63.1 Lymph % (Auto) 18.9 L Perkins % (Auto) 10.3 H Eos % (Auto) 7.6 H Baso % (Auto) 0.1 Lymph # (Auto) 1.6 Perkins # (Auto) 0.9 H Eos # (Auto) 0.6 Baso # (Auto) 0.01 Absolute Neuts (auto) 5.22 Sodium Potassium Chloride Carbon Dioxide Anion Gap BUN Creatinine Est GFR ( Amer) Est GFR (Non-Af Amer) Random Glucose Calcium Phosphorus Magnesium Total Bilirubin AST ALT Alkaline Phosphatase Total Creatine Kinase 38 Total Protein Albumin Globulin Albumin/Globulin Ratio 25-OH Vitamin D Total 39.2 07/13/18 09:00 WBC RBC Hgb Hct MCV MCH MCHC RDW Plt Count MPV Neut % (Auto) Lymph % (Auto) Perkins % (Auto) Eos % (Auto) Baso % (Auto) Lymph # (Auto) Perkins # (Auto) Eos # (Auto) Baso # (Auto) Absolute Neuts (auto) Sodium 141 Potassium 4.2 Chloride 105 Carbon Dioxide 28 Anion Gap 12 BUN 20 Creatinine 0.7 Est GFR ( Amer) > 60 Est GFR (Non-Af Amer) > 60 Random Glucose 106 Calcium 9.4 Phosphorus 4.8 H Magnesium 2.2 Total Bilirubin 0.4 AST 29 ALT 26 Alkaline Phosphatase 152 H Total Creatine Kinase Total Protein 6.5 Albumin 3.6 Globulin 2.9 Albumin/Globulin Ratio 1.3 25-OH Vitamin D Total Assessment & Plan - Assessment and Plan (Free Text) Plan: Pt seen and examined by me. I have reviewed the note of the medical esthetician and I agree with it. I have discussed the assessment and plan with the resident. I have reviewed the medications and the last labs. Pt with L hip pain with fracture of the L hip. She has been having severe pain 10/10 and has been having difficulty in walking. She had gone to [facility] and was discharged. She will need Dilaudid and Fentanyl patch for pain. Will get Ortho evaluation. She has been on ASA for her CAD and will continue. Pt will continue with Lisinopril for HTN. Zoloft for anxiety/depression.
[2018-07-13] MEDS ORDERED: oxyCODONE 10 mg Immediate Release Tab PO PRN (08:43)
[2018-07-13] MEDS ORDERED: HYDROmorphone 1 mg/ml ISec IVP PRN (08:45)
[2018-07-13 09:23] LABS: BASO # 0.01 K/mm3 (0.0-2.0); BASO % 0.1 % (0.0-3.0); EOS # 0.6 (0.0-0.7); EOS % 7.6 % (1.5-5.0); HEMOGLOBIN 11.4 g/dL (12.0-16.0); LYMPH # 1.6 (1.2-3.4); LYMPH % 18.9 % (22.0-35.0); MEAN CELL VOLUME 90.5 fl (80.0-105.0); MEAN CORPUSCULAR HEMOGLOBIN 27.9 pg (25.0-35.0); MEAN CORPUSCULAR HGB CONC 30.8 g/dl (31.0-37.0); MEAN PLATELET VOLUME 10.1 fl (7.0-11.0); MONO # 0.9 (0.1-0.6); MONO % 10.3 % (1.0-6.0); RBC 4.09 10^6/uL (3.5-6.1); RED CELL DISTRIBUTION WIDTH 14.8 % (11.5-14.5); WHITE BLOOD COUNT 8.3 10^3/uL (4.5-11.0)
[2018-07-13 09:34] LABS: ALB/GLOB RATIO 1.3 (1.1-1.8); ALBUMIN 3.6 g/dL (3.0-4.8); ALT/SGPT 26 U/L (7-56); AST/SGOT 29 U/L (14-36); BLOOD UREA NITROGEN 20 mg/dL (7-21); CALCIUM 9.4 mg/dL (8.4-10.5); GFR NON-AFRICAN AMERICAN > 60
[2018-07-13] MEDS ORDERED: CRESTOR 10 MG PO SCH (10:00)
[2018-07-13 14:04] VITALS: RESP 20; TEMP 97.8; O2SAT 98
[2018-07-13 18:08] VITALS: BP 117/64; PULSE 68
--- NOTE | 2018-07-14 07:10 | CP.PCM.DIS ---
<Hilary Smith - Last Filed: 07/14/18 07:10> Provider - Provider Date of Admission: 07/12/18 19:55 Attending physician: Adolfo Walker MD Primary care physician: Dr. Mendoza Consults: 07/13/18 04:48 Social Work Referral Routine Comment: met criteria Physician Instructions: Reason For Exam: met criteria 07/13/18 04:54 Inpatient [employer] Core Measures Referral Routine Comment: Physician Instructions: Reason For Exam: met criteria Transition In Care/Readmission Reduction Routine Comment: Physician Instructions: Reason For Exam: met criteria 07/13/18 08:43 Physician Consult Routine Comment: Consulting Provider: Tashi Mary Consulting Physician: Tashi Mary Reason for Consult: vertical oblique periprosthetic fracture medial prox fem shaft Time Spent in preparation of Discharge (in minutes): 65 Hospital Course - Lab Results Lab Results: Most Recent Lab Values WBC 8.3 10^3/uL (4.5-11.0) 07/13/18 09:00 RBC 4.09 10^6/uL (3.5-6.1) 07/13/18 09:00 Hgb 11.4 g/dL (12.0-16.0) L D 07/13/18 09:00 Hct 37.0 % (36.0-48.0) 07/13/18 09:00 MCV 90.5 fl (80.0-105.0) 07/13/18 09:00 MCH 27.9 pg (25.0-35.0) 07/13/18 09:00 MCHC 30.8 g/dl (31.0-37.0) L 07/13/18 09:00 RDW 14.8 % (11.5-14.5) H 07/13/18 09:00 Plt Count 238 10^3/uL (120.0-450.0) 07/13/18 09:00 MPV 10.1 fl (7.0-11.0) 07/13/18 09:00 Neut % (Auto) 63.1 % (50.0-68.0) 07/13/18 09:00 Lymph % (Auto) 18.9 % (22.0-35.0) L 07/13/18 09:00 [place] % (Auto) 10.3 % (1.0-6.0) H 07/13/18 09:00 Eos % (Auto) 7.6 % (1.5-5.0) H 07/13/18 09:00 Baso % (Auto) 0.1 % (0.0-3.0) 07/13/18 09:00 Lymph # (Auto) 1.6 (1.2-3.4) 07/13/18 09:00 [place] # (Auto) 0.9 (0.1-0.6) H 07/13/18 09:00 Eos # (Auto) 0.6 (0.0-0.7) 07/13/18 09:00 Baso # (Auto) 0.01 K/mm3 (0.0-2.0) 07/13/18 09:00 Absolute Neuts (auto) 5.22 (1.4-6.5) 07/13/18 09:00 Sodium 141 mmol/L (132-148) 07/13/18 09:00 Potassium 4.2 mmol/L (3.6-5.0) 07/13/18 09:00 Chloride 105 mmol/L (98-107) 07/13/18 09:00 Carbon Dioxide 28 mmol/L (21-33) 07/13/18 09:00 Anion Gap 12 (10-20) 07/13/18 09:00 BUN 20 mg/dL (7-21) 07/13/18 09:00 Creatinine 0.7 mg/dl (0.7-1.2) 07/13/18 09:00 Est GFR ( Amer) > 60 07/13/18 09:00 Est GFR (Non-Af Amer) > 60 07/13/18 09:00 Random Glucose 106 mg/dL (70-110) 07/13/18 09:00 Calcium 9.4 mg/dL (8.4-10.5) 07/13/18 09:00 Phosphorus 4.8 mg/dL (2.5-4.5) H 07/13/18 09:00 Magnesium 2.2 mg/dL (1.7-2.2) 07/13/18 09:00 Total Bilirubin 0.4 mg/dL (0.2-1.3) 07/13/18 09:00 AST 29 U/L (14-36) 07/13/18 09:00 ALT 26 U/L (7-56) 07/13/18 09:00 Alkaline Phosphatase 152 U/L (38-126) H 07/13/18 09:00 Total Creatine Kinase 38 U/L (35-230) 07/12/18 17:15 Total Protein 6.5 g/dL (5.8-8.3) 07/13/18 09:00 Albumin 3.6 g/dL (3.0-4.8) 07/13/18 09:00 Globulin 2.9 gm/dL 07/13/18 09:00 Albumin/Globulin Ratio 1.3 (1.1-1.8) 07/13/18 09:00 25-OH Vitamin D Total 39.2 NG/ML (30.0-100.0) 07/13/18 07:01 - Hospital Course Hospital Course: Upon Admission As per HPI: " 73yo female PMHx NSETMI, CAD, HTN, HLD, OA, CVA, TIA, chronic anemia, Diverticulitis, PUD, cataracts, glaucoma, arthritis, herniated disk, sciatica, depression, anxiety, falls presents with LLE pain for weeks. Patient reports pain worsened to the point that she was unable to stand/put pressure on it. Patient had hip surgery at [facility] in [facility] with Dr. Kerr and since then has had increasing pain in her LLE. The pain is from her left hip to under her left knee and described as 10/10 sharp throbbing in nature. Patient denied other acute complaints fever, chills, headache, dizziness, chest pain, SOB, cough, abd pain, nausea, vomiting, bowel/bladder complaints. " Hospital Course Patient admitted to med/surg for further management. CT LE showed prior left hip arthroplasty. Vertical oblique periprosthetic fracture involving the medial proximal femoral shaft involving the lesser trochanter. No obvious periprosthetic hemorrhage or hematoma. Dr. Usman puentes consulted. Patient pain managed with fentanyl 10mg patch, Dilaudid 1q6 for severe pain, and Oxycodone 10q4 for moderate pain. Will monitor closely. Pain regimen should help pain from herniated disk and sciatica. Continue patient's home Zoloft daily. Patient continued on home med ASA and Lisinopril for CAD and HTN. Patient was ve ry tearful this AM and in distress over pain. GI ppx on board. Patient has HHD ordered. Will continue to monitor closely. Upon Discharge Ortho Dr. Mary contacted patient's surgeon in [facility] Dr. Chadwick and organized transfer to [facility]. Patient agreed to transfer for procedure. Patient left unit via [place] with all personal belongings. Ortho resident Dr. Castro and extension service specialist in charge aware that patient was on her way. Family members were at bedside and aware. Discharge Exam - Head Exam Head Exam: ATRAUMATIC, NORMAL INSPECTION, NORMOCEPHALIC - Additional Findings Additional findings: - Constitutional Appears: Non-toxic, In Acute Distress (pain), Other (tearful) - Head Exam Head Exam: ATRAUMATIC, NORMAL INSPECTION, NORMOCEPHALIC - Eye Exam Eye Exam: EOMI, Normal appearance, PERRL. absent: Conjunctival injection, Scleral icterus - ENT Exam ENT Exam: Mucous Membranes Moist - Neck Exam Neck exam: Positive for: Normal Inspection - Respiratory Exam Respiratory Exam: Clear to Auscultation Bilateral, NORMAL BREATHING PATTERN. absent: Accessory Muscle Use, Rales, Rhonchi, Wheezes, Respiratory Distress - Cardiovascular Exam Cardiovascular Exam: +S1, +S2 - GI/Abdominal Exam GI & Abdominal Exam: Normal Bowel Sounds, Soft. absent: Distended, Firm, Guarding, Rigid, Tenderness - Extremities Exam Extremities exam: Positive for: pedal pulses present. Negative for: pedal edema - Neurological Exam Neurological exam: Alert, CN II-XII Intact, Oriented x3 - Psychiatric Exam Psychiatric exam: Anxious (tearful) - Skin Skin Exam: Dry, Intact, Normal Color, Warm Discharge Plan - Follow Up Plan Condition: STABLE Disposition: OTHER INSTITUTION <Adolfo Walker - Last Filed: 07/14/18 12:42> Provider - Provider Date of Admission: 07/12/18 19:55 Attending physician: Adolfo Walker MD Consults: 07/13/18 04:48 Social Work Referral Routine Comment: met criteria Physician Instructions: Reason For Exam: met criteria 07/13/18 04:54 Inpatient [employer] Core Measures Referral Routine Comment: Physician Instructions: Reason For Exam: met criteria Transition In Care/Readmission Reduction Routine Comment: Physician Instructions: Reason For Exam: met criteria 07/13/18 08:43 Physician Consult Routine Comment: Consulting Provider: Tashi Mary Consulting Physician: Tashi Mary Reason for Consult: vertical oblique periprosthetic fracture medial prox fem shaft Hospital Course - Lab Results Lab Results: Most Recent Lab Values WBC 8.3 10^3/uL (4.5-11.0) 07/13/18 09:00 RBC 4.09 10^6/uL (3.5-6.1) 07/13/18 09:00 Hgb 11.4 g/dL (12.0-16.0) L D 07/13/18 09:00 Hct 37.0 % (36.0-48.0) 07/13/18 09:00 MCV 90.5 fl (80.0-105.0) 07/13/18 09:00 MCH 27.9 pg (25.0-35.0) 07/13/18 09:00 MCHC 30.8 g/dl (31.0-37.0) L 07/13/18 09:00 RDW 14.8 % (11.5-14.5) H 07/13/18 09:00 Plt Count 238 10^3/uL (120.0-450.0) 07/13/18 09:00 MPV 10.1 fl (7.0-11.0) 07/13/18 09:00 Neut % (Auto) 63.1 % (50.0-68.0) 07/13/18 09:00 Lymph % (Auto) 18.9 % (22.0-35.0) L 07/13/18 09:00 [place] % (Auto) 10.3 % (1.0-6.0) H 07/13/18 09:00 Eos % (Auto) 7.6 % (1.5-5.0) H 07/13/18 09:00 Baso % (Auto) 0.1 % (0.0-3.0) 07/13/18 09:00 Lymph # (Auto) 1.6 (1.2-3.4) 07/13/18 09:00 [place] # (Auto) 0.9 (0.1-0.6) H 07/13/18 09:00 Eos # (Auto) 0.6 (0.0-0.7) 07/13/18 09:00 Baso # (Auto) 0.01 K/mm3 (0.0-2.0) 07/13/18 09:00 Absolute Neuts (auto) 5.22 (1.4-6.5) 07/13/18 09:00 Sodium 141 mmol/L (132-148) 07/13/18 09:00 Potassium 4.2 mmol/L (3.6-5.0) 07/13/18 09:00 Chloride 105 mmol/L (98-107) 07/13/18 09:00 Carbon Dioxide 28 mmol/L (21-33) 07/13/18 09:00 Anion Gap 12 (10-20) 07/13/18 09:00 BUN 20 mg/dL (7-21) 07/13/18 09:00 Creatinine 0.7 mg/dl (0.7-1.2) 07/13/18 09:00 Est GFR ( Amer) > 60 07/13/18 09:00 Est GFR (Non-Af Amer) > 60 07/13/18 09:00 Random Glucose 106 mg/dL (70-110) 07/13/18 09:00 Calcium 9.4 mg/dL (8.4-10.5) 07/13/18 09:00 Phosphorus 4.8 mg/dL (2.5-4.5) H 07/13/18 09:00 Magnesium 2.2 mg/dL (1.7-2.2) 07/13/18 09:00 Total Bilirubin 0.4 mg/dL (0.2-1.3) 07/13/18 09:00 AST 29 U/L (14-36) 07/13/18 09:00 ALT 26 U/L (7-56) 07/13/18 09:00 Alkaline Phosphatase 152 U/L (38-126) H 07/13/18 09:00 Total Creatine Kinase 38 U/L (35-230) 07/12/18 17:15 Total Protein 6.5 g/dL (5.8-8.3) 07/13/18 09:00 Albumin 3.6 g/dL (3.0-4.8) 07/13/18 09:00 Globulin 2.9 gm/dL 07/13/18 09:00 Albumin/Globulin Ratio 1.3 (1.1-1.8) 07/13/18 09:00 25-OH Vitamin D Total 39.2 NG/ML (30.0-100.0) 07/13/18 07:01 - Hospital Course Hospital Course: Pt was transferred to [facility] to her Ortho who is there. Pt was not seen by me today and left prior to my arrival.
[2018-07-14] MEDS ORDERED: Pantoprazole 40 mg EC Tab PO SCH (10:00)
== END 2018-07-13 18:59 | disposition short-term general hospital (02) | DRG 556 ==
LOC: ED 16:06 → ERH 19:55 → 5RSO 07-13 01:37
PROVIDERS: ADMIT Internal Medicine Nephrology; ATTEND Internal Medicine Nephrology
DX: M79.605 Pain in left leg (principal); M25.552 Pain in left hip; Z96.642 Presence of left artificial hip joint; E78.5 Hyperlipidemia, unspecified; F32.9 Major depressive disorder, single episode, unspecified; F41.9 Anxiety disorder, unspecified; I10 Essential (primary) hypertension; I25.10 Atherosclerotic heart disease of native coronary artery without angina pectoris; H40.9 Unspecified glaucoma; M54.30 Sciatica, unspecified side; R29.6 Repeated falls; M51.9 Unspecified thoracic, thoracolumbar and lumbosacral intervertebral disc disorder; I25.2 Old myocardial infarction; Z86.73 Personal history of transient ischemic attack (TIA), and cerebral infarction without residual deficits; Z87.891 Personal history of nicotine dependence; Z87.11 Personal history of peptic ulcer disease

== ENCOUNTER 2018-09-11 16:02 | Emergency (ER) | payer MEDICARE, MEDICAID ==
[2018-09-11 16:32] VITALS: BMI 29.2
[2018-09-11] MEDS ORDERED: Sodium Chloride 0.9% 500 ML IV STA (16:58)
[2018-09-11] MEDS ORDERED: Morphine 4 mg/ml ISec IVP STA ×3 (16:58→21:05)
--- NOTE | 2018-09-11 17:06 | ED PDOC ---
Arrival/HPI - General Chief Complaint: Abdominal Pain Time Seen by Provider: 09/11/18 16:07 Historian: Patient - History of Present Illness Narrative History of Present Illness (Text): 09/11/18 17:01 73 year old female, whose past medical history includes bilateral hip surgery, hypertension, OA, CVA,blood clots (on lovanox daily), diverticulitis, and chronic anemia, presents to the emergency department complaining of generalized abdominal pain for the past 3 days. Patient reports associated nausea and diarrhea. Her PMD is concerned of reoccurring diverticulitis, he called Dr. Walker who sent her into the emergency department for further evaluation. She notes secondary brusing on her abdomen from the daily lovanox. Patient denies vomiting, fever, chills, headache, dizziness, back pain, neck pain, or any other complaint. Time/Duration: < week (3 days) Symptom Onset: Gradual Symptom Course: Unchanged Activities at Onset: Light Context: Home Past Medical History - Provider Review Nursing Documentation Reviewed: Yes - Past History Past History: Non-Contributing - Infectious Disease Hx of Infectious Diseases: None - Tetanus Immunization Tetanus Immunization: Up to Date - Cardiac Hx Cardiac Disorders: Yes Hx KS: (NSTEMI may 28) Hx Hypertension: Yes Other/Comment: carotid artery stenosis s/p right CEA - Pulmonary Hx Respiratory Disorders: Yes Hx Pneumonia: Yes - Neurological Hx Neurological Disorder: Yes HX Cerebrovascular Accident: Yes Hx Transient Ischemic Attacks (TIA): Yes - HEENT Hx HEENT Disorder: Yes Hx Cataracts: Yes Hx Glaucoma: Yes Other/Comment: reports surgery for cataract removal - Renal Hx Renal Disorder: No - Endocrine/Metabolic Hx Endocrine Disorders: No - Hematological/Oncological Hx Blood Disorders: Yes Hx Blood Transfusions: Yes - Integumentary Hx Dermatological Disorder: No - Musculoskeletal/Rheumatological Hx Musculoskeletal Disorders: Yes Hx Back Pain: Yes Hx Falls: Yes (multiple falls last 2 months) Hx Herniated Disk: Yes - Gastrointestinal Hx Gastrointestinal Disorders: Yes Hx Diverticulitis: Yes Hx Gall Bladder Disease: Yes - Genitourinary/Gynecological Hx Genitourinary Disorders: Yes Other/Comment: hysterectomy, age 36 - Psychiatric Hx Psychophysiologic Disorder: Yes Hx Anxiety: Yes Hx Depression: Yes Hx Substance Use: No - Past Surgical History Past Surgical History: Non-Contributing - Surgical History Hx Appendectomy: Yes Hx Cataract Extraction: Yes (x2) Hx Cardiac Catheterization: Yes (may 2018) Hx Cholecystectomy: Yes Hx Hysterectomy: Yes Hx Orthopedic Surgery: Yes (R hip and femur, L hip) Hx Tonsillectomy: Yes - Anesthesia Hx Anesthesia: Yes Hx Anesthesia Reactions: No Hx Malignant Hyperthermia: No - Suicidal Assessment Feels Threatened In Home Enviroment: No Family/Social History - Physician Review Nursing Documentation Reviewed: Yes Family/Social History: No Known Family HX Smoking Status: Former Smoker Hx Alcohol Use: No Hx Substance Use: No Hx Substance Use Treatment: No Allergies/Home Meds Allergies/Adverse Reactions: Allergies apixaban [From Eliquis] Allergy (Verified 09/11/18 16:29) ANAPHYLAXIS atorvastatin calcium [From Lipitor] Allergy (Verified 09/11/18 16:29) FATIGUE clopidogrel bisulfate [From Plavix] Allergy (Verified 09/11/18 16:29) SHORTNESS OF BREATH nalbuphine HCl [From Nubain] Allergy (Verified 09/11/18 16:29) VOMITING Home Medications: Home Meds Medication Instructions Recorded Confirmed Omeprazole [Prilosec] 20 mg PO BID 04/19/15 09/11/18 Aspirin [Aspirin Chewable] 81 mg PO DAILY 08/18/17 09/11/18 Enalapril Maleate [Vasotec] 10 mg PO BID 08/18/17 09/11/18 Enoxaparin [Lovenox] 60 mg SQ BID 09/11/18 09/11/18 Review of Systems - Physician Review All systems were reviewed & negative as marked: Yes - Review of Systems Constitutional: absent: Fevers Respiratory: absent: SOB, Cough Cardiovascular: absent: Chest Pain Gastrointestinal: Abdominal Pain, Diarrhea, Nausea. absent: Vomiting Musculoskeletal: absent: Back Pain, Neck Pain Neurological: absent: Headache, Dizziness Physical Exam Vital Signs Reviewed: Yes Vital Signs Temp Pulse Resp BP Pulse Ox 09/11/18 16:28 97.7 F 82 18 181/85 H 95 Temperature: Afebrile Blood Pressure: Hypertensive Pulse: Regular Respiratory Rate: Normal Appearance: Positive for: Well-Appearing, Non-Toxic, Comfortable Pain Distress: None Mental Status: Positive for: Alert and Oriented X 3 - Systems Exam Head: Present: Atraumatic, Normocephalic Pupils: Present: PERRL Extroacular Muscles: Present: EOMI Conjunctiva: Present: Normal Mouth: Present: Moist Mucous Membranes Neck: Present: Normal Range of Motion Respiratory/Chest: Present: Clear to Auscultation, Good Air Exchange. No: Respiratory Distress, Accessory Muscle Use Cardiovascular: Present: Regular Rate and Rhythm, Normal S1, S2. No: Murmurs Abdomen: Present: Tenderness (to the left lower quadrant ), Other (area of bruising to the lower abdominal region ). No: Distention, Peritoneal Signs Back: Present: Normal Inspection Upper Extremity: Present: Normal Inspection. No: Cyanosis, Edema Lower Extremity: Present: Normal Inspection. No: Edema Neurological: Present: GCS=15, CN II-XII Intact, Speech Normal Skin: Present: Warm, Dry, Normal Color. No: Rashes Psychiatric: Present: Alert, Oriented x 3, Normal Insight, Normal Concentration Medical Decision Making ED Course and Treatment: 09/11/18 17:09 Impression: 73 year old female who presents to the emergency department complaining of abdominal pain, nausea, and diarrhea. Plan: -- Abdomen and Pelvis CT -- Labs -- Morphine -- IV fluids -- Urinalysis -- Reassess and disposition Prior Visits: Notes and results from previous visits were reviewed. Progress Notes: 09/11/18 17:12 EKG shows NSR at 78bpm with normal intervals and no st changes 09/11/18 21:07 CT Abdomen and Pelvis: The liver is of uniform attenuation without mass or defect. There is no intra or extrahepatic biliary ductal dilatation. The spleen is normal. The patient is status post cholecystectomy. The pancreas is of normal contour and attenuation characteristics. There is no evidence of adrenal mass. Both kidneys demonstrate prompt and equal nephrograms. The kidneys are normal in size, shape and configuration. There is no evidence of renal or ureteral mass. No renal or ureteral calculi are identified. There is no hydroureter or hydronephrosis. No evidence for appendicitis. There is severe circumferential wall thickening involving all small bowel segments compatible with enteritis. No evidence for small or large bowel obstruction. There is diffuse severe diverticulosis throughout the left colon with no evidence of acute diverticulitis. Numerous subcutaneous nodules and subcutaneous bubbles of air present in the anterior abdominal wall likely consistent with post injection changes. There is no evidence of abdominal ascites or lymphadenopathy. Due to streak artifacts evaluation of pelvic organs is limited nevertheless there is suggestion of complete hysterectomy. There is no evidence of intrinsic or extrinsic bladder mass. There is no pelvic ascites or lymphadenopathy. Images of the lung bases show no evidence of pleural or parenchymal mass. There are no pleural effusions. Small hiatal hernia is seen. Status post bilateral total hips replacement. IMPRESSION: 1. Evidence of enteritis. 2. Small hiatal hernia. 3. Status post bilateral total hips replacement. 4. The patient is status post cholecystectomy. 5. Diffuse severe diverticulosis throughout the left colon with no evidence of acute diverticulitis. 6. Numerous subcutaneous nodules and subcutaneous bubbles of air present in the anterior abdominal wall likely consistent with post injection changes. 7. Status post complete hysterectomy. Electronically signed on Sep 11, 2018 9:06:27 PM EDT by: Anurag Adler M.D., MBA Certified By ABR & CBC[employer] Fellowship Trained MRI and CT Specialist 09/11/18 21:09 Patient reports that she feels better and wants to go home. Will follow-up with Dr. Mendoza - Lab Interpretations I have reviewed the lab results: Yes - RAD Interpretation Radiology Orders: 09/11/18 16:58 ABD & PELVIS IV CONTRAST ONLY [CT] Stat [employer] Distributor Operator: Radiologist - Medication Orders Current Medication Orders: Sodium Chloride (Sodium Chloride 0.9%) 500 mls @ 999 mls/hr IV .Q31M STA Stop: 09/11/18 17:28 Discontinued Medications Morphine Sulfate (Morphine) 4 mg IVP STAT STA Stop: 09/11/18 16:59 - Scribe Statement The provider has reviewed the documentation as recorded by the Scribe Shelly Jacinto All medical record entries made by the Scribe were at my direction and personally dictated by me. I have reviewed the chart and agree that the record accurately reflects my personal performance of the history, physical exam, medical decision making, and the department course for this patient. I have also personally directed, reviewed, and agree with the discharge instructions and disposition. Disposition/Present on Arrival - Present on Arrival Any Indicators Present on Arrival: No History of DVT/PE: No History of Uncontrolled Diabetes: No Urinary Catheter: No History of Decub. Ulcer: No History Surgical Site Infection Following: None - Disposition Have Diagnosis and Disposition been Completed?: Yes Diagnosis: Enteritis, Diverticulosis Disposition: HOME/ ROUTINE Disposition Time: 21:10 Patient Plan: Discharge Condition: GOOD Discharge Instructions (ExitCare): Diverticulosis (DC), Deep Vein Thrombosis (Blood Clots in the Legs) Additional Instructions: Keep using lovenox as prescribed. Return to ED if condition worsens. Follow-up with PMD within 2 days Referrals: Iveth Mendoza MD [Primary Care Provider] - Follow up with primary Forms: [employer] (Indian)
[2018-09-11 17:48] LABS: BASO # 0.03 K/mm3 (0.0-2.0); BASO % 0.4 % (0.0-3.0); EOS # 0.6 (0.0-0.7); EOS % 7.1 % (1.5-5.0); HEMOGLOBIN 12.9 g/dL (12.0-16.0); LYMPH # 1.8 (1.2-3.4); LYMPH % 23.7 % (22.0-35.0); MEAN CELL VOLUME 89.1 fl (80.0-105.0); MEAN CORPUSCULAR HEMOGLOBIN 28.2 pg (25.0-35.0); MEAN CORPUSCULAR HGB CONC 31.6 g/dl (31.0-37.0); MEAN PLATELET VOLUME 11.5 fl (7.0-11.0); MONO # 0.8 (0.1-0.6); MONO % 10.7 % (1.0-6.0); RBC 4.58 10^6/uL (3.5-6.1); RED CELL DISTRIBUTION WIDTH 14.6 % (11.5-14.5); WHITE BLOOD COUNT 7.8 10^3/uL (4.5-11.0)
[2018-09-11 17:59] LABS: ALB/GLOB RATIO 1.1 (1.1-1.8); ALBUMIN 3.9 g/dL (3.0-4.8); ALT/SGPT 20 U/L (7-56); AST/SGOT 35 U/L (14-36); BLOOD UREA NITROGEN 15 mg/dL (7-21); CALCIUM 9.4 mg/dL (8.4-10.5); GFR NON-AFRICAN AMERICAN > 60; LIPASE 55 U/L (23-300)
[2018-09-11] MEDS ORDERED: Iohexol 350 MG/100 ML VIAL ONE (18:16)
[2018-09-11 18:54] VITALS: TEMP 97.5
[2018-09-11 20:05] LABS: INR 1.12; PROTHROMBIN TIME 12.4 SECONDS (9.4-12.5)
[2018-09-11 20:46] VITALS: BP 175/94; PULSE 75; RESP 17; O2SAT 97
[2018-09-11 21:41] LABS: PH,URINE 6.5 (4.7-8.0); URINE BILIRUBIN NEGATIVE (NEGATIVE); URINE BLOOD NEGATIVE (NEGATIVE); URINE GLUCOSE (UA) NEGATIVE (NEGATIVE); URINE LEUKOCYTE ESTERASE NEGATIVE Leu/uL (NEGATIVE); URINE PROTEIN NEGATIVE mg/dL (<30 mg/dL); URINE UROBILINOGEN 0.2 E.U./dL (<1 E.U./dL)
[2018-09-11 21:44] LABS: URINE APPEARANCE CLEAR (CLEAR); URINE COLOR YELLOW (YELLOW)
--- NOTE | 2018-09-12 08:19 | CT ---
Date of service: 09/11/2018 PROCEDURE: CT Abdomen and Pelvis with contrast HISTORY: LLQ pain COMPARISON: None. TECHNIQUE: Contrast dose: Radiation dose: Total exam DLP = 672.91 mGy-cm. This CT exam was performed using one or more of the following dose reduction techniques: Automated exposure control, adjustment of the mA and/or kV according to patient size, and/or use of iterative reconstruction technique. FINDINGS: LOWER THORAX: Patchy mild ground-glass density interstitial changes.. LIVER: Unremarkable. No gross lesion or ductal dilatation. GALLBLADDER AND BILE DUCTS: Cholecystectomy. PANCREAS: Unremarkable. No gross lesion or ductal dilatation. SPLEEN: Unremarkable. ADRENALS: Unremarkable. No mass. KIDNEYS AND URETERS: Unremarkable. No hydronephrosis. No solid mass. VASCULATURE: Unremarkable. No aortic aneurysm. No aortic atherosclerotic calcification or mural plaque present. BOWEL: Colonic diverticulosis. No obstruction. No gross mural thickening. APPENDIX: Normal appendix. PERITONEUM: Unremarkable. No free fluid. No free air. LYMPH NODES: Unremarkable. No enlarged lymph nodes. BLADDER: Unremarkable. REPRODUCTIVE: Hysterectomy. BONES: Status post bilateral hip arthroplasty. OTHER FINDINGS: Numerous subcutaneous nodules and subcutaneous air of present in the anterior abdominal wall compatible post injection changes. IMPRESSION: No acute pathology.
--- NOTE | 2018-09-12 16:35 | CARD ---
APPROVED REPORT Date of service: 09/11/2018 EKG Measurement Heart [id number] <Conclusion> Normal sinus rhythm High Voltage. LVH.
== END 2018-09-11 21:35 | disposition home or self-care (01) ==
LOC: ED 16:02
DX: K52.9 Noninfective gastroenteritis and colitis, unspecified (principal); K57.90 Diverticulosis of intestine, part unspecified, without perforation or abscess without bleeding; Z86.73 Personal history of transient ischemic attack (TIA), and cerebral infarction without residual deficits; Z87.891 Personal history of nicotine dependence
CPT/HCPCS: 74177; 80053; 81003; 83690; 83735; 84100; 85025; 85610; 85730; 93005; 96374; 96376; 99283; J2270; J7040; Q9967

== ENCOUNTER 2018-10-21 15:04 | Outpatient (CLI) | payer MEDICARE, MEDICAID | END 2018-10-21 15:05 | disposition home or self-care (01) | LOC: RAD 15:04 ==